=== PATIENT | female | born 1970 | race African-American/Black ===

== ENCOUNTER 2019-09-09 11:05 | Outpatient (CLI) | payer BC, SELFPAY ==
[2019-09-09 11:44] LABS: Basophils Percent Auto 0.6 % (0.2-1.2); Eosinophils Percent Auto 0.8 % (0-4.4); Hematocrit 37.2 % (37.0-47.0); Hemoglobin 13.1 g/dL (12.0-15.0); Immature Granulocyte Absolute 0.01 K/mm3 (0.00-0.031); Immature Granulocyte Percent A 0.2 % (0-0.5); Immature Platelet Fraction Pct 11.8 % (0.9-11.2); Lymphocytes Absolute Auto 1.89 K/mm3 (0.9-3.2); Lymphocytes Percent Auto 38.3 % (18.3-44.2); Mean Corpuscular HGB Conc 35.2 g/dl (32-36); Mean Corpuscular Hemoglobin 31.7 pg (26-34); Mean Corpuscular Volume 90.1 fl (80-100); Mean Platelet Volume 13.3 fl (7.4-10.4); Monocytes Absolute Auto 0.3 K/mm3 (0.1-0.6); Monocytes Percent Auto 6.9 % (2.6-8.5); Neutrophils Absolute Auto 2.6 K/mm3 (1.3-6.7); Neutrophils Percent Auto 53.2 % (45.5-73.1); Platelet Count Result 249 k/mm3 (150-375); Red Blood Count 4.13 M/mm3 (4.2-5.4); Red Cell Distribution Width 11.7 % (11.5-14.5); White Blood Count 4.9 K/mm3 (4.5-10.0)
[2019-09-09 11:48] LABS: Add Urine Microscopic? YES; Appearance Urine Cloudy (Clear); Bacteria Urine Trace /hpf; Bilirubin Urine Negative (Negative); Blood Urine Negative (Negative); Color Urine Yellow (Yellow); Glucose Urine UA 3+ mg/dL (Negative); Ketones Urine Negative (Negative); Leukocyte Esterase Ur 3+ LEU/UL (NEGATIVE); Nitrate Urine Positive (Negative); Protein Urine Negative (Negative); Squamous Epithelial Cell Urine Many /hpf (Few); Urobilinogen Urine Negative mg/dL (<2.0); WBC Clumps Urine Present /HPF; WBC Urine >75 /hpf (0-3)
[2019-09-09 11:49] LABS: Specific Grav Ur 1.032 (1.001-1.035)
[2019-09-09 11:54] LABS: Alanine Aminotransferase 14 U/L (4-35); Albumin Level 4.2 g/dL (3.5-5.1); Alkaline Phosphatase 151 U/L (38-126); Aspartate Amino Transferase 19 U/L (14-36); Bilirubin,Total 0.4 mg/dL (0.2-1.3); Blood Urea Nitrogen 16 mg/dL (7-17); Calcium 9.6 mg/dL (8.4-10.2); Carbon Dioxide 28 mmol/L (22-30); Chloride 95 mmol/L (98-107); Estimated Glomerular Filt Rate > 60; Glucose 490 mg/dL (65-105); Potassium 3.8 mmol/L (3.4-5.0); Sodium 131 mmol/L (137-145)
[2019-09-09 12:09] LABS: Hemoglobin A1C > 14.0 % (<5.7)
[2019-09-09 13:00] LABS: Thyroid Stimulating Hormone Reflex 0.655 uIU/mL (0.465-4.68)
== END 2019-09-09 11:06 | disposition home or self-care (01) ==
PROVIDERS: PCP Physician Assistant; Visit Provider Physician Assistant
DX: E11.49 Type 2 diabetes mellitus with other diabetic neurological complication (principal); R53.83 Other fatigue; Z79.4 Long term (current) use of insulin
CPT/HCPCS: 36415; 80053; 81001; 83036; 84443; 85025; 85055

== ENCOUNTER 2020-09-08 12:33 | Outpatient (CLI) | payer BC, SELFPAY ==
[2020-09-08 13:15] LABS: Basophils Percent Auto 0.5 % (0.2-1.2); Eosinophils Absolute Auto 0.1 K/mm3 (0-0.3); Eosinophils Percent Auto 1.5 % (0-4.4); Hematocrit 43.8 % (37.0-47.0); Hemoglobin 14.7 g/dL (12.0-15.0); Immature Granulocyte Absolute 0.02 K/mm3 (0.00-0.031); Immature Granulocyte Percent A 0.3 % (0-0.5); Lymphocytes Absolute Auto 2.19 K/mm3 (0.9-3.2); Lymphocytes Percent Auto 33.7 % (18.3-44.2); Mean Corpuscular HGB Conc 33.6 g/dl (32-36); Mean Corpuscular Hemoglobin 31.9 pg (26-34); Mean Platelet Volume 12.6 fl (7.4-10.4); Monocytes Absolute Auto 0.5 K/mm3 (0.1-0.6); Neutrophils Absolute Auto 3.6 K/mm3 (1.3-6.7); Platelet Count Result 239 k/mm3 (150-375); Red Blood Count 4.61 M/mm3 (4.2-5.4); Red Cell Distribution Width 12.6 % (11.5-14.5); White Blood Count 6.5 K/mm3 (4.5-10.0)
[2020-09-08 13:22] LABS: Hemoglobin A1C 13.4 % (<5.7)
[2020-09-08 13:26] LABS: Alanine Aminotransferase 12 U/L (4-35); Albumin Level 4.3 g/dL (3.5-5.1); Alkaline Phosphatase 81 U/L (38-126); Anion Gap 10 mmol/L (8-16); Aspartate Amino Transferase 17 U/L (14-36); Bilirubin,Total 0.7 mg/dL (0.2-1.3); Blood Urea Nitrogen 23 mg/dL (7-17); Calcium 9.7 mg/dL (8.4-10.2); Carbon Dioxide 26 mmol/L (22-30); Chloride 101 mmol/L (98-107); Cholesterol 209 mg/dL (0-200); Estimated Glomerular Filt Rate > 60; Glucose 297 mg/dL (65-105); HDL Direct 92 mg/dL; Potassium 4.1 mmol/L (3.4-5.0); Sodium 137 mmol/L (137-145); Triglycerides 87 mg/dL (<150)
[2020-09-08 13:37] LABS: LDL Cholesterol Direct 84 mg/dL
[2020-09-08 13:57] LABS: Thyroid Stimulating Hormone 0.592 uIU/mL (0.465-4.680)
== END 2020-09-08 12:34 | disposition home or self-care (01) ==
PROVIDERS: PCP Physician Assistant; Visit Provider Physician Assistant
DX: R53.83 Other fatigue (principal); E11.59 Type 2 diabetes mellitus with other circulatory complications; I10 Essential (primary) hypertension
CPT/HCPCS: 36415; 80053; 80061; 83036; 84443; 85025

== ENCOUNTER 2021-01-19 09:04 | Outpatient (CLI) | payer BC, SELFPAY ==
--- NOTE | ~2021-01-19 | MM_ITS ---
EXAMINATION: MM screening peter BI w jamin HISTORY: Screening mammogram TECHNIQUE: Craniocaudal and mediolateral oblique 3-D tomosynthesis images were obtained and synthetic 2-D images were generated. CAD analysis was submitted and interpreted. COMPARISON: 02/19/2019 bilateral digital screening mammogram examination BREAST PARENCHYMAL COMPOSITION: There are scattered areas of fibroglandular density. FINDINGS: There is no evidence of suspicious mass, calcification, or architectural distortion to sugg est malignancy in either breast. There has been no suspicious interval change. IMPRESSION: 1. No mammographic evidence of malignancy. 2. Recommend routine screening mammography in one year. BI-RADS Category 1: Negative Reviewed, dictated and finalized at location A.
[2021-01-19 11:00] LABS: Alanine Aminotransferase 13 U/L (4-35); Albumin Level 4.2 g/dL (3.5-5.1); Alkaline Phosphatase 81 U/L (38-126); Anion Gap 7 mmol/L (8-16); Aspartate Amino Transferase 18 U/L (14-36); Bilirubin,Total 0.5 mg/dL (0.2-1.3); Blood Urea Nitrogen 15 mg/dL (7-17); Calcium 9.4 mg/dL (8.4-10.2); Carbon Dioxide 27 mmol/L (22-30); Chloride 105 mmol/L (98-107); Cholesterol 194 mg/dL (0-200); Estimated Glomerular Filt Rate > 60; Glucose 174 mg/dL (65-110); HDL Direct 93 mg/dL; Potassium 3.9 mmol/L (3.4-5.0); Sodium 139 mmol/L (137-145); Triglycerides 77 mg/dL (<150)
[2021-01-19 11:11] LABS: LDL Cholesterol Direct 64 mg/dL
[2021-01-19 11:29] LABS: Thyroid Stimulating Hormone 0.904 uIU/mL (0.465-4.680)
[2021-01-19 12:41] LABS: Creatinine Urine 44.7 mg/dL
[2021-01-19 14:12] LABS: Microalbumin Urine Random > 1140.0 mg/L (0-16.7)
== END 2021-01-19 09:05 | disposition home or self-care (01) ==
PROVIDERS: PCP Physician Assistant; Visit Provider Physician Assistant
DX: Z12.31 Encounter for screening mammogram for malignant neoplasm of breast (principal); E11.40 Type 2 diabetes mellitus with diabetic neuropathy, unspecified; E11.65 Type 2 diabetes mellitus with hyperglycemia; E11.49 Type 2 diabetes mellitus with other diabetic neurological complication; Z79.4 Long term (current) use of insulin
CPT/HCPCS: 36415; 77063; 77067; 80053; 80061; 82043; 84443

== ENCOUNTER 2022-11-22 10:39 | Outpatient (CLI) | payer BC, SELFPAY ==
--- NOTE | ~2022-11-22 | MM_ITS ---
EXAMINATION: MM screening peter BI w jamin HISTORY: Screening mammogram TECHNIQUE: Craniocaudal and mediolateral oblique 3-D tomosynthesis images were obtained and synthetic 2-D images were generated. CAD analysis was submitted and interpreted. COMPARISON: 01/19/2021, 02/19/2019 bilateral screening mammogram examinations BREAST PARENCHYMAL COMPOSITION: There are scattered areas of fibroglandular density. FINDINGS: There is an irregular approximately 2.5 mm hypodensity in the upper mid right breast at mid depth. Diagnostic right mammogram is recommended, with ultrasound if required. Otherwise there is no evidence of suspicious mass, calcification, or architectural distortion to sugg est malignancy in either breast. There has been no other suspicious interval change. IMPRESSION: 1. 2.5 mm irregular high density in the upper mid right breast at mid depth 2. Diagnostic right mammogram is recommended, with ultrasound if required BI-RADS Category 0: Incomplete: Needs additional imaging evaluation. Reviewed, dictated and finalized at location A.
[2022-11-22 14:21] LABS: Alanine Aminotransferase 16 U/L (6-35); Albumin Level 4.3 g/dL (3.5-5.1); Alkaline Phosphatase 95 U/L (38-126); Anion Gap 4 mmol/L (8-16); Aspartate Amino Transferase 19 U/L (14-36); Bilirubin,Total 0.3 mg/dL (0.2-1.3); Blood Urea Nitrogen 17 mg/dL (7-17); Calcium 9.2 mg/dL (8.4-10.2); Carbon Dioxide 30 mmol/L (22-30); Chloride 104 mmol/L (98-107); Cholesterol 212 mg/dL (0-200); Estimated Glomerular Filt Rate > 60; Glucose 190 mg/dL (65-110); HDL Direct 69 mg/dL; Potassium 3.6 mmol/L (3.4-5.0); Sodium 138 mmol/L (137-145); Triglycerides 130 mg/dL (<150)
[2022-11-22 14:27] LABS: Hemoglobin A1C 11.2 % (<5.7)
[2022-11-22 14:32] LABS: LDL Cholesterol Direct 97 mg/dL
== END 2022-11-22 10:40 | disposition home or self-care (01) ==
PROVIDERS: PCP Physician Assistant; Visit Provider Physician Assistant
DX: Z12.31 Encounter for screening mammogram for malignant neoplasm of breast (principal); E11.49 Type 2 diabetes mellitus with other diabetic neurological complication; Z79.4 Long term (current) use of insulin; R92.8 Other abnormal and inconclusive findings on diagnostic imaging of breast
CPT/HCPCS: 36415; 77063; 77067; 80053; 80061; 83036

== ENCOUNTER 2022-12-24 08:52 | Outpatient (CLI) | payer BC, SELFPAY ==
--- NOTE | ~2022-12-24 | MM_ITS ---
EXAMINATION: MM diagnostic peter RT w jamin HISTORY: Right breast asymmetry on screening mammogram TECHNIQUE: Additional 3-D tomosynthesis images of the right breast were performed and synthetic 2-D i mages were generated. CAD analysis was submitted and interpreted. COMPARISON: 11/22/2022,01/19/2021, 02/19/2019 BREAST PARENCHYMAL COMPOSITION: There are scattered areas of fibroglandular density. FINDINGS: There is a return to baseline fibroglandular appearance with spot compression of the right breast in the area questioned on screening mammogram. IMPRESSION: 1. No mammographic evidence of malignancy. 2. Recommend routine screening mammography in one year. BI-RADS Category 1: Negative Reviewed, dictated and finalized at location A.
== END 2022-12-24 08:53 ==
LOC: MICIMG 08:53
PROVIDERS: PCP Physician Assistant; Visit Provider Physician Assistant
DX: R92.8 Other abnormal and inconclusive findings on diagnostic imaging of breast (principal)
CPT/HCPCS: 77061; 77065; G0279

== ENCOUNTER 2023-06-19 11:19 | Outpatient (CLI) | payer BC, SELFPAY ==
[2023-06-19 12:10] LABS: Creatinine Urine 76.4 mg/dL
[2023-06-19 12:15] LABS: MALB Creatinine Ratio 49.2 mg/g (0-30); Microalbumin Urine Random 37.6 mg/L (0-16.7)
[2023-06-19 12:53] LABS: Thyroid Stimulating Hormone Reflex 0.294 uIU/mL (0.465-4.68)
[2023-06-19 12:59] LABS: Alanine Aminotransferase 16 U/L (6-35); Albumin Level 4.4 g/dL (3.5-5.1); Alkaline Phosphatase 102 U/L (38-126); Anion Gap 9 mmol/L (8-16); Aspartate Amino Transferase 20 U/L (14-36); Bilirubin,Total 0.5 mg/dL (0.2-1.3); Blood Urea Nitrogen 22 mg/dL (7-17); Carbon Dioxide 28 mmol/L (22-30); Chloride 102 mmol/L (98-107); Cholesterol 238 mg/dL (0-200); Estimated Glomerular Filt Rate > 60; Glucose 288 mg/dL (65-110); HDL Direct 74 mg/dL; Sodium 139 mmol/L (137-145); Triglycerides 130 mg/dL (<150)
[2023-06-19 13:10] LABS: LDL Cholesterol Direct 110 mg/dL
[2023-06-19 13:42] LABS: Free T4 Free Thyroxine Reflex 1.45 ng/dL (0.78-2.19)
[2023-06-19 14:50] LABS: Total Triiodothyronine (T3) 1.43 NG/ML (0.97-1.69)
[2023-06-22 19:21] LABS: Glutamic acid decarboxylase AA <5 IU/mL (<5)
[2023-06-22 21:45] LABS: C-Peptide 2.79 ng/mL (0.80-3.85)
== END 2023-06-19 11:20 | disposition home or self-care (01) ==
LOC: ANHLAB 11:21
PROVIDERS: PCP Physician Assistant; Visit Provider Nurse Practitioner
DX: E11.65 Type 2 diabetes mellitus with hyperglycemia (principal)
CPT/HCPCS: 36415; 80053; 80061; 82043; 84439; 84443; 84480; 84681; 86341

== ENCOUNTER 2023-07-08 11:56 | Emergency (ER) | payer BC, SELFPAY ==
--- NOTE | ~2023-07-08 | XR_ITS ---
EXAMINATION: XR chest 2V DATE: 07/08/2023 12:48 INDICATION: Chest pain TECHNIQUE: PA and lateral views of the chest are obtained. COMPARISON: 05/27/2018 FINDINGS: There are minimal airspace opacities of the lingula. No pleural effusion or pneumothorax. T he cardiomediastinal silhouette is normal. There is mild thoracic spondylosis. Surgical clips in the right upper quadrant are likely from prior cholecystectomy. IMPRESSION: 1. Minimal airspace opacities of the lingula, consistent with atelectasis versus pneumonia. Reviewed, dictated and finalized at location B. [employer] IMPRESSION: 1. Minimal airspace opacities of the lingula, consistent with atelectasis versu s pneumonia.
--- NOTE | 2023-07-08 11:58 | ECG_ITS ---
Measurements Intervals Alvin Rate: 92 P: 20 KS: 185 QRS: -29 QRSD: 86 T: -4 QT: 353 QTc: 437 Interpretive Statements SINUS RHYTHM MODERATE VOLTAGE CRITERIA FOR LVH, CONSIDER NORMAL VARIANT [MEETS CRITERIA IN ONE OF: R(aVL), S(V1), R(V5), R(V5/V6)+S(V1)] POSSIBLE ANTERIOR MYOCARDIAL INFARCTION , OF INDETERMINATE AGE [30 ms Q WAVE IN V3/V4, OR R < 0.2 mV IN V4] NO PREVIOUS ECG AVAILABLE FOR COMPARISON Electronically Signed On 07-08-2023 15:37:09 [employer] by Bhargav Guerrero M.D.
[2023-07-08 12:05] VITALS: BP 141/98; PULSE 95; RESP 23; O2SAT 100
[2023-07-08 12:08] VITALS: PULSE 93; PULSE 94; RESP 15; O2SAT 100
[2023-07-08] MEDS: ASPIRIN 81 MG CHEWABLE TABLET 324 MG PO (12:14)
[2023-07-08 12:16] VITALS: BP 133/92; PULSE 94; RESP 20; O2SAT 92
[2023-07-08 12:26] LABS: Basophils Percent Auto 0.7 % (0.2-1.2); Eosinophils Absolute Auto 0.1 K/mm3 (0-0.3); Eosinophils Percent Auto 1.8 % (0-4.4); Hematocrit 38.1 % (37.0-47.0); Hemoglobin 12.7 g/dL (12.0-15.0); Immature Granulocyte Absolute 0.01 K/mm3 (0.00-0.031); Immature Granulocyte Percent A 0.2 % (0-0.5); Lymphocytes Absolute Auto 2.02 K/mm3 (0.9-3.2); Lymphocytes Percent Auto 37.1 % (18.3-44.2); Mean Corpuscular HGB Conc 33.3 g/dl (32-36); Mean Corpuscular Hemoglobin 31.1 pg (26-34); Mean Corpuscular Volume 93.2 fl (80-100); Mean Platelet Volume 11.9 fl (7.4-10.4); Monocytes Absolute Auto 0.4 K/mm3 (0.1-0.6); Monocytes Percent Auto 6.4 % (2.6-8.5); Neutrophils Absolute Auto 2.9 K/mm3 (1.3-6.7); Neutrophils Percent Auto 53.8 % (45.5-73.1); Platelet Count Result 259 k/mm3 (150-375); Red Blood Count 4.09 M/mm3 (4.2-5.4); Red Cell Distribution Width 11.9 % (11.5-14.5); White Blood Count 5.4 K/mm3 (4.5-10.0)
[2023-07-08 12:30] VITALS: BP 134/97; PULSE 97; RESP 28
[2023-07-08 12:38] LABS: Alanine Aminotransferase 15 U/L (6-35); Albumin Level 3.9 g/dL (3.5-5.1); Alkaline Phosphatase 115 U/L (38-126); Anion Gap 5 mmol/L (8-16); Aspartate Amino Transferase 18 U/L (14-36); Bilirubin,Total 0.4 mg/dL (0.2-1.3); Blood Urea Nitrogen 19 mg/dL (7-17); Calcium 9.4 mg/dL (8.4-10.2); Carbon Dioxide 27 mmol/L (22-30); Chloride 102 mmol/L (98-107); Estimated CRCL calculation 68 ml/min; Estimated Glomerular Filt Rate > 60; Glucose 299 mg/dL (65-110); Lipase 259 U/L (23-300); Sodium 134 mmol/L (137-145)
[2023-07-08 12:42] LABS: INR 0.9; Prothrombin Time 11.9 Seconds (11.1-14.7)
[2023-07-08 12:43] LABS: Partial Thromboplastin Time 26.4 SECONDS (22.3-36.8)
[2023-07-08 12:49] LABS: Troponin I < 0.012 ng/mL (0.000-0.034)
[2023-07-08 13:15] VITALS: BP 133/93; PULSE 91; RESP 18; O2SAT 100
[2023-07-08 13:37] LABS: D Dimer < 0.27 ug/mL (<0.48)
--- NOTE | 2023-07-08 14:02 | ED.CHESTPAIN ---
HPI - Chest Pain General Chief Complaint: Chest Pain Stated Complaint: chest pain Time Seen by Provider: 07/08/23 13:02 Source: patient Limitations: no limitations History of Present Illness HPI narrative: Patient is a 53-year-old female presents to the emergency department complaining of chest pain. Patient states for the past 1 week she has been experiencing pain in the middle to mid left side of her chest is described as sharp, worse when taking a deep breath and, overall comes and goes, no significant radiation, denies any chest pain in the past, tried ibuprofen and aspirin for the discomfort, has not noticed anything making the pain better. patient denies difficulty breathing, fever, cough, recent injuries recent illness, bloody bowel movements, urinary discomfort, nausea, vomiting, numbness, weakness. Related Data Home Medications Medication Instructions Recorded Confirmed dulaglutide 1.5 mg/0.5 mL mg subcut 07/08/23 subcutaneous pen injector (Trulicity) empagliflozin 25 mg tablet mg 07/08/23 (Jardiance) famotidine 20 mg tablet (Pepcid) mg 07/08/23 insulin degludec 100 unit/mL (3 unit subcut 07/08/23 mL) subcutaneous pen olmesartan 40 mg-amlodipine 5 tablet PO 07/08/23 mg-hydrochlorothiazide 12.5 mg tablet pen needle, diabetic 31 gauge x 07/08/23 07/08/2308/14 (TRUEplus Pen Needle) Allergies Allergy/AdvReac Type Severity Reaction Status Date / Time lisinopril Allergy Cough Verified 07/08/23 12:11 Review of Systems Review of Systems: A 10 system review of systems was completed on the patient and is negative except for what is stated in the HPI. Nursing and ancillary documentation was reviewed. [facility] Family History Family History (Updated 01/26/14 @ 07:13 by DOCTOR UNKNOWN) Sibling Family history of congestive heart failure Other Cerebrovascular accident Family history of heart disease in male family member before age 55 Social History Social History Smoking status: Never smoker Alcohol intake: current Comments At time of signature, I have reviewed and agree with nursing past medical, surgical, social and family history unless otherwise noted. Please see the nursing chart for further information. There is no relevant family history pertinent to the presenting complaint. Exam Narrative: CONST: No acute distress. Well nourished. HENMT: Head is normocephalic and atraumatic. Moist mucous membranes. No posterior oropharynx erythema. EYES: No conjunctival icterus, injection, or pallor. PERRL. NECK: No meningeal signs. RESP: Able to speak in full sentences. Normal respiratory effort. CTAB. CARDIO: Regular rate. Regular rhythm. 2+ DP and radial pulses bilaterally. GI: Nondistended. No tenderness to palpation. Soft. : No CVA tenderness to palpation. SKIN: No rashes or lesions noted on exposed skin. NEURO: Oriented x3. Moves all extremities. EXTREM/MSK/BACK: No pedal edema. PSYCH: Normal affect. Course Vital Signs Vital signs: Vital Signs Pulse Rate 95 07/08/23 12:05 Respiratory Rate 23 H 07/08/23 12:05 Blood Pressure 141/98 H 07/08/23 12:05 Pulse Oximetry 100 07/08/23 12:05 Pulse Rate 91 07/08/23 13:15 Respiratory Rate 18 07/08/23 13:15 Blood Pressure 133/93 H 07/08/23 13:15 Pulse Oximetry 100 07/08/23 13:15 Oxygen Delivery Room Air 07/08/23 12:08 MDM - Chest Pain MDM Narrative Medical decision making narrative: Patient presents with the above complaint. Initial vitals are remarkable for no significant abnormalities. Physical examination as noted above. Plan discussed: Laboratory analysis, EKG, chest x-ray, continues cardiac monitoring, continuous pulse oximetry, aspirin. Patient was reassessed at the bedside. No changes in physical exam. Patient is in no acute distress. The patient has remained stable throughout the entire ED visit. Counseled patient regarding diagnostic results and po
[2023-07-08] MEDS: AMOXICILLIN 500 MG CAPSULE 1000 MG PO (14:40)
[2023-07-08 15:46] LABS: Influenza A QL RT-PCR Negative (Negative); Influenza B QL RT-PCR Negative (Negative); RSV RNA, RT-PCR Negative (Negative); SARS-CoV-2 RNA PCR Negative (Negative)
== END 2023-07-08 14:43 | disposition home or self-care (01) ==
PROVIDERS: Emergency Provider Student in an Organized Health Care Education/Training Program; PCP Physician Assistant
DX: J18.9 Pneumonia, unspecified organism (principal); R07.81 Pleurodynia; Z20.822 Contact with and (suspected) exposure to COVID-19
CPT/HCPCS: 36415; 71046; 80053; 83690; 84484; 85025; 85380; 85610; 85730; 87637; 93005; 99284; A9270

== ENCOUNTER 2024-07-29 15:17 | Outpatient (CLI) | payer BC, SELFPAY | END 2024-07-29 15:18 | disposition home or self-care (01) | LOC: ANHIMG 15:19 | PROVIDERS: PCP Physician Assistant; Visit Provider Physician Assistant | DX: Z12.31 Encounter for screening mammogram for malignant neoplasm of breast (principal) | CPT/HCPCS: 77063; 77067 ==

== ENCOUNTER 2024-11-05 09:56 | Outpatient (CLI) | payer BC, SELFPAY ==
--- OUTSIDE RECORDS SUMMARY | 2024-11-05 10:04 | XMS_ITS | Clinical Summary ---
Author Organization [facility] [address] [facility] Address [address] [place] [address] Care Team Providers Care Industrial Analyst Name Role Phone Cathie Bolanos Primary Care Provider [phone] Cathie Bolanos Unavailable [phone] Allergies Active Allergy Reactions Criticality Noted Date Comments Lisinopril Cough Low 01/19/2019 Medications blood-glucose meter miscIndications:U ncontrolled type 2 diabetes mellitus with hyperglycemia (HCC),Type 2 diabetes mellitus without complication, with long-term current use of insulin (HCC) Use daily for monitoring of diabetes. 1 each 3 Active gabapentin (NEURONTIN) 300 mg capsuleIndication s:Uncontrolled type 2 diabetes mellitus with hyperglycemia (HCC) Take 1 capsule (300 mg total) by mouth 2 (two) times a day E11.65 180 capsule 3 3 Active blood glucose diagnostic (glucose blood) strip Check blood sugar daily in am e11.65 100 each 5 3 Active lancets misc 1 each by other route daily E11.65 100 each 3 3 Active olmesartan-amLODI Pin-hcthiazid 40-5-12.5 mg tabletIndications :Hypertension associated with diabetes (HCC) TAKE 1 TABLET BY MOUTH DAILY 90 tablet 1 4 Active empagliflozin (Jardiance) 25 mg tabletIndications :type 2 diabetes mellitus Take 1 tablet (25 mg total) by mouth daily E11.65 90 tablet 3 5 Active dulaglutide (Trulicity) 1.5 mg/0.5 mL pen injectorIndicatio ns:Uncontrolled type 2 diabetes mellitus with hyperglycemia (HCC) Inject 0.5 mL (1.5 mg total) under the skin once a week 6 mL 2 5 Active pen needle, diabetic 31 gauge x 08/14 needleIndications :Uncontrolled type 2 diabetes mellitus with hyperglycemia (HCC) Use needle nightly to administer insulin. MAY SUBSTITUTE FOR INSURANCE PREFERRED AND MOST COST EFFECTIVE BRAND. E11.65 100 each 3 5 Active BASAGLAR 100 unit/mL (3 mL) pen for injection Inject 14 Units under the skin daily E11.65 15 mL 1 5 Active ofloxacin (FLOXIN) 0.3 % otic solution Administer 5 drops into the right ear daily 5 mL 5 Active escitalopram (LEXAPRO) 10 mg tabletIndications :Recurrent major depressive disorder, in partial remission Take 1 tablet (10 mg total) by mouth daily 5 Active Active Problems Problem Noted Date Diagnosed Date Otitis of left ear 09/24/2024 Assessment & Plan (09/24/2024 9:55 PM CDT): Left ear looks like maybe starting tightness media and the canal is also irritated. Will send out antibiotics as well as drops. Avoid Q-tip use. Will monitor closely and if symptoms do not resolve will need to re-examine the ear. Reviewed with patient that Reviewed with patient that infection can sometimes contribute to sugar elevations. Continue to work hard I am good control Recurrent major depressive disorder, in partial remission 09/24/2024 Obesity (BMI 30.0-34.9) 08/12/2024 Assessment & Plan (09/14/2024 3:47 PM CDT): Discussed the patient's BMI. The BMI is above average. BMI management plan is completed. BMI Follow-up includes: nutrition counseling, exercise counseling and education provided. Assessment & Plan (08/12/2024 8:24 PM CDT): Discussed the patient's BMI. The BMI is above average. BMI management plan is completed. BMI Follow-up includes: nutrition counseling, exercise counseling and education provided. Current moderate episode of major depressive dis order 08/12/2024 Assessment & Plan (09/24/2024 9:55 PM CDT): Stable with Lexapro 10 Assessment & Plan (08/12/2024 8:25 PM CDT): Depression symptoms have stabilized with the Lexapro and better control of her sugars. BMI 31.0-31.9,adult 07/01/2024 Assessment & Plan (09/14/2024 3:47 PM CDT): Discussed the patient's BMI. The BMI is above average. BMI management plan is completed. BMI Follow-up includes: nutrition counseling, exercise counseling and education provided. Assessment & Plan (08/12/2024 10:08 AM CDT): Discussed the patient's BMI. The BMI is above average. BMI management plan is completed. BMI Follow-up includes: nutrition counseling, exercise counseling and education provided. Assessment & Plan (07/15/2024 11:17 AM ASSISTANT ACCOUNT MANAGER): Discussed the patient's BMI. The BMI is above average. BMI management plan is completed. BMI Follow-up includes: nutrition counseling, exercise counseling and education provided. Assessment & Plan (07/01/2024 11:19 AM ASSISTANT ACCOUNT MANAGER): Weight/BMI is in healthy range. Continue healthy lifestyle to maintain. Annual physical exam 12/17/2022 Assessment & Plan (06/26/2024 8:40 PM ASSISTANT ACCOUNT MANAGER): Encouraged healthy lifestyle, good nutrition and exercise. Encouraged Calcium and Vitamin D and weight bearing exercise for bone health. Reviewed immunizations Reviewed age appropirate screenings. Assessment & Plan (12/17/2022 11:14 PM CDT): Encouraged healthy lifestyle, good nutrition and exercise. Encouraged Calcium and Vitamin D and weight bearing exercise for bone health. Reviewed immunizations Reviewed age appropirate screenings. Abnormal mammogram 12/17/2022 Assessment & Plan (12/17/2022 11:23 PM CDT): Awaiting diagnostic mamm/US scheduled in the next few weeks. Type 2 diabetes mellitus wit hout complication, with long-term current use of insulin 12/17/2022 Assessment & Plan (09/24/2024 9:55 PM CDT): Stressed importance of continued A1c control to minimize the ferry terminal supervisor effects of diabetes. Bring accuchecks to office when instructed to do so. Check A1c about every 3-6 months. Take medication as prescribed. Get annual eye exam. Encouraged ELINA/Statin if able to tolerate. Encouraged weight control and encouraged diabetic diet and exercise. Continue with current regimen. Reviewed with patient that infection can contribute to elevations in glucose. Continue monitor closely and if symptoms increase or sugars continue to elevate she needs to call immediately Assessment & Plan (06/26/2024 8:41 PM ASSISTANT ACCOUNT MANAGER): This is a significant, separately identifiable problem that was evaluated and managed on the same day as the wellness exam Patient's diabetes completely uncontrolled. Last A1c within the last few weeks was greater than 14. She has been out of her Jardiance for a week Trulicity 1.5 on which she has been taking. She is supposed to take Basaglar 15 units but has been taking every 3rd day because she isn't sure she needs that much. Stressed to her the goal is to have her A1c at 7. She is at a very high-risk for long-term sequela due to uncontrolled diabetes not limited to stroke heart attack kidney failure blindness problems with her feet and problems with the entire vascular system. Stressed the importance of getting her diabetes controlled. She will start the Jardiance she will start taking the Basaglar 15 units HS. Take her fasting blood sugar readings 1st thing in the morning. Discussed the continuous glucose monitor set up for her and she declined stating she wants to do this on her own she thinks she can. She will follow up in 2 weeks with her fasting blood sugar readings and we will reassess adjustment at that time. Offered referral to dietitian as well as shop director and she declines these also. Assessment & Plan (03/27/2023 1:02 PM CDT): Stressed importance of continued A1c control to minimize the skilled nursing effects of diabetes. Bring accuchecks to office when instructed to do so. Check A1c about every 3-6 months. Take medication as prescribed. Get annual eye exam. Encouraged ELINA/Statin if able to tolerate. Encouraged weight control and encouraged diabetic diet and exercise. Not at goal. Will refer to Endocrine. Continue Trulicity 1.5 weekly, Jardiance 25, Tresiba 10 units. Instructed to do fasting blood sugars to begin to get trends and make sure she brings them with her to see Gabrielle Palacios. Will await her recommendations Assessment & Plan (12/17/2022 11:26 PM CDT): Started Insulin today. Fatigue 11/11/2020 Assessment & Plan (08/12/2024 8:22 PM CDT): Probably multifactorial. Check labs and followup to re-evaluate Assessment & Plan (11/17/2021 10:52 PM CDT): Probably multifactorial. Check labs and followup to re-evaluate Assessment & Plan (07/05/2021 11:20 AM ASSISTANT ACCOUNT MANAGER): Probably multifactorial. Check labs and followup to re-evaluate Assessment & Plan (01/13/2021 10:14 PM CDT): Probably multifactorial. Check labs and followup to re-evaluate Assessment & Plan (11/11/2020 9:37 PM CDT): Probably multifactorial. Check labs and followup to re-evaluate Uncontrolled type 2 diabetes mellitus with hyperglycemia ([facility]) 10/21/2020 Assessment & Plan (08/12/2024 8:22 PM CDT): Stressed importance of continued A1c control to minimize the ferry terminal supervisor effects of diabetes. Bring accuchecks to office when instructed to do so. Check A1c about every 3-6 months. Take medication as prescribed. Get annual eye exam. Encouraged ELINA/Statin if able to tolerate. Encouraged weight control and encouraged diabetic diet and exercise. A1c was uncontrolled at over 14. Currently on Trulicity 1.5 weekly, Jardiance 25, Basaglar 14 units HS. Tolerating well. Taking as instructed every night. Feeling much better. Will be due for an A1c in a few months. Will see her back in September with labs done week prior. Assessment & Plan (07/23/2024 8:02 PM ASSISTANT ACCOUNT MANAGER): Stressed importance of continued A1c control to minimize the skilled nursing effects of diabetes. Bring accuchecks to office when instructed to do so. Check A1c about every 3-6 months. Take medication as prescribed. Get annual eye exam. Encouraged ELINA/Statin if able to tolerate. Encouraged weight control and encouraged diabetic diet and exercise. Continue to work on tight control which will be accomplished by consistent compliance with medications. Continue Jardiance 25, Trulicity 1.5 per week and Basaglar 15 units HS. Assessment & Plan (07/10/2024 7:17 PM ASSISTANT ACCOUNT MANAGER): Stressed importance of continued A1c control to minimize the ferry terminal supervisor effects of diabetes. Bring accuchecks to office when instructed to do so. Check A1c about every 3-6 months. Take medication as prescribed. Get annual eye exam. Encouraged ELINA/Statin if able to tolerate. Encouraged weight control and encouraged diabetic diet and exercise. A1c has been completely uncontrolled. She has been taking her medication as instructed for the last 2 weeks and beginning to see her FBS come down between 120 and 200. Continue to take medications as instructed continue to monitor her readings. Discussed the continuous glucose monitor as well as evs manager and Endocrinology referral and she has declined all of those. She wants to work hard on doing medications as instructed to see where she ends up. Follow-up in 2 more weeks to continue to reinforce compliance. She is in agreement with the plan Assessment & Plan (06/26/2024 8:41 PM ASSISTANT ACCOUNT MANAGER): This is a significant, separately identifiable problem that was evaluated and managed on the same day as the wellness exam Patient's diabetes completely uncontrolled. Last A1c within the last few weeks was greater than 14. She has been out of her Jardiance for a week Trulicity 1.5 on which she has been taking. She is supposed to take Basaglar 15 units but has been taking every 3rd day because she isn't sure she needs that much. Stressed to her the goal is to have her A1c at 7. She is at a very high-risk for long-term sequela due to uncontrolled diabetes not limited to stroke heart attack kidney failure blindness problems with her feet and problems with the entire vascular system. Stressed the importance of getting her diabetes controlled. She will start the Jardiance she will start taking the Basaglar 15 units HS. Take her fasting blood sugar readings 1st thing in the morning. Discussed the continuous glucose monitor set up for her and she declined stating she wants to do this on her own she thinks she can. She will follow up in 2 weeks with her fasting blood sugar readings and we will reassess adjustment at that time. Offered referral to dietitian as well as shop director and she declines these also. Assessment & Plan (05/14/2023 3:41 PM ASSISTANT ACCOUNT MANAGER): This is a chronic condition which is out of control, not at goal of less than 7%. Personally reviewed most recent A1c - Lab Results Component Value Date HGBA1C 13.3 (A) 03/27/2023 Personally reviewed POC blood sugar- not at goal 80-180 Lab Results Component Value Date POCGLU 600 05/14/2023 Medication- increase Tresiba 14 units daily in am, continue jardiance 25mg daily and trulicity 1.5mg weekly. Call blood sugars on Thursday. We will adjust insulin. Discussed at length that I feel that her constipation may be related to her dehydration related to her high blood sugars. We discussed a ball plan of taking milk of magnesia if she has not had a bowel movement every 3 days. She agreed to this red Monitor blood sugar daily. Encouraged annual eye exam. Monofilament foot exam completed. protective senses intact Treated with Gabapentin. States neuropathy is well controlled with her current dose of gabapentin Personally reviewed CMP eGFR- 89 Kidney function- normal Urine microalbumin/creatinine ratio - at goal <30 treated with olmesartan/amlodipine/hydrochlorothiazide B/P today- at goal of <140/90. continue olmesartan/amlodipine/hydrochlorothiazide Personally reviewed lipid panel. Not at Goal of less than 70. Assessment & Plan (03/27/2023 1:01 PM CDT): Patient's diabetes is uncontrolled. She is struggling with an insulin that she can tolerate as she is having increased bloating and constipation. She is not taking her medications regular. Will refer to Gabrielle Palacios nurse practitioner for further evaluation. She would be interested in a pump if this is appropriate option but stressed the importance of getting her A1c control to avoid long-term sequela not limited to I damage heart attack stroke kidney damage and or issues with her feet. She verbalizes understanding in his ready to make a change willing to see the middle school art teacher Assessment & Plan (12/17/2022 11:21 PM CDT): This is a significant, separately identifiable problem that was evaluated and managed on the same day as the wellness exam Stressed importance of continued A1c control to minimize the skilled nursing effects of diabetes. This includes but is not limited to diabetic diet, exercise, and continuation of medication as prescribed. Encouraged ELINA/Statin if able to tolerate. Discussed the importance of annual diabetic eye exam and foot exams. We will continue to check A1C approximately every 3-6 months. Bring accuchecks to the office when asked to do so. Continue Trulicity and Jardiance at their current doses. We will begin Tresiba 10 units every morning. Patient has previously taken Tresiba and reports being comfortable with taking this medication again. Encouraged patient to get in with eye doctor WILBERTO to evaluate for diabetic eye exam with her recent visual changes. Reminded patient of s/s hypoglycemia. She is to record FBS each morning. Will slowly titrate up until controlled. Plan to have her return to the office in 4-6 weeks to reassess but stressed most important step is to take insulin daily as well as her other meds. Call if she has increased sxs. Needs new Glucometer and supplies Assessment & Plan (01/13/2021 10:13 PM CDT): Stressed importance of continued A1c control to minimize the skilled nursing effects of diabetes. Bring accuchecks to office when instructed to do so. Check A1c about every 3-6 months. Take medication as prescribed. Get annual eye exam. Encouraged ELINA/Statin if able to tolerate. Encouraged weight control and encouraged diabetic diet and exercise. Assessment & Plan (11/11/2020 9:35 PM CDT): Stressed importance of continued A1c control to minimize the skilled nursing effects of diabetes. Bring accuchecks to office when instructed to do so. Check A1c about every 3-6 months. Take medication as prescribed. Get annual eye exam. Encouraged ELINA/Statin if able to tolerate. Encouraged weight control and encouraged diabetic diet and exercise. Improving control based on the FBS. Continue current regimen and f.u in a few months to recheck A1c/control Call with new concerns. Assessment & Plan (10/21/2020 8:44 PM CDT): Stressed importance of continued A1c control to minimize the skilled nursing effects of diabetes. Bring accuchecks to office when instructed to do so. Check A1c about every 3-6 months. Take medication as prescribed. Get annual eye exam. Encouraged ELINA/Statin if able to tolerate. Encouraged weight control and encouraged diabetic diet and exercise. See neuropathy. Acute cystitis without hematuria 09/19/2019 Assessment & Plan (09/19/2019 9:59 AM CDT): Resolved. Continue to monitor as frequency is probably secondary to poor DM control. Other fatigue 02/07/2019 Assessment & Plan (12/17/2022 5:26 PM CDT): Fatigue is likely multifactorial. We will evaluate labs for any underlying abnormalities that the fatigue may be attributed to. Assessment & Plan (05/20/2020 8:50 PM ASSISTANT ACCOUNT MANAGER): Probably multifactorial. Check labs and followup to re-evaluate Assessment & Plan (05/16/2019 3:54 PM ASSISTANT ACCOUNT MANAGER): Probably multifactorial. Check labs and followup to re-evaluate Assessment & Plan (02/13/2019 4:06 PM CDT): Probably multifactorial. Check labs and followup to re-evaluate Vitamin D deficiency 01/16/2019 Assessment & Plan (12/17/2022 5:29 PM CDT): Patient not currently supplementing vitamin D but was encouraged to do so. Assessment & Plan (10/21/2020 8:39 PM CDT): supplement Assessment & Plan (05/16/2019 3:54 PM ASSISTANT ACCOUNT MANAGER): supplement Assessment & Plan (02/13/2019 4:05 PM CDT): Supplement. Hypertension associated with diabetes 12/31/2018 Assessment & Plan (08/12/2024 8:21 PM CDT): Bp is stable/in acceptable range for any co-morbidities. Encouraged to limit sodium intake and exercise for weight control. Continue Tribenzor ,5 Assessment & Plan (06/26/2024 8:38 PM ASSISTANT ACCOUNT MANAGER): Bp is stable/in acceptable range for any co-morbidities. Encouraged to limit sodium intake and exercise for weight control. Continue Tribenzor .5 Assessment & Plan (05/14/2023 3:41 PM ASSISTANT ACCOUNT MANAGER): This is a chronic condition which is at goal of less than 140/90 Personally reviewed labs. Continue olmesartan, amlodipine, hydrochlorothiazide Encouraged to monitor weight and B/P at home Encouraged to take medications as prescribed. Assessment & Plan (03/27/2023 12:57 PM CDT): Bp is stable/in acceptable range for any co-morbidities. Encouraged to limit sodium intake and exercise for weight control. Continue Tribenzor .5 Assessment & Plan (12/17/2022 11:16 PM CDT): Blood pressure appears elevated with readings in office today on current medication regime. Advised to decrease salt intake. Educated patient on the importance of a healthy lifestyle with diet and exercise on the management of hypertension. Continue medications as prescribed and monitor blood pressure at home as needed. If unable to do home readings, will have her come in to see the nurse in 1 week. Assessment & Plan (07/17/2022 4:47 PM ASSISTANT ACCOUNT MANAGER): Bp is stable/in acceptable range for any co-morbidities. Encouraged to limit sodium intake and exercise for weight control. Continue [facility] Assessment & Plan (06/28/2022 7:47 PM ASSISTANT ACCOUNT MANAGER): Bp is stable/in acceptable range for any co-morbidities. Encouraged to limit sodium intake and exercise for weight control. Continue [facility] .5 Assessment & Plan (11/17/2021 10:51 PM CDT): Bp is stable/in acceptable range for any co-morbidities. Encouraged to limit sodium intake and exercise for weight control. Continue [facility] .5 Assessment & Plan (07/05/2021 11:19 AM ASSISTANT ACCOUNT MANAGER): Bp is stable/in acceptable range for any co-morbidities. Encouraged to limit sodium intake and exercise for weight control. Continue [facility] Assessment & Plan (01/13/2021 10:12 PM CDT): Bp is stable/in acceptable range for any co-morbidities. Encouraged to limit sodium intake and exercise for weight control. Continue [facility] Assessment & Plan (11/11/2020 9:36 PM CDT): Bp is stable/in acceptable range for any co-morbidities. Encouraged to limit sodium intake and exercise for weight control. Continue [facility] Assessment & Plan (10/21/2020 8:39 PM CDT): Bp is stable/in acceptable range for any co-morbidities. Encouraged to limit sodium intake and exercise for weight control. Continue [facility]. bp well controlled Assessment & Plan (05/20/2020 8:50 PM ASSISTANT ACCOUNT MANAGER): Bp is stable/in acceptable range for any co-morbidities. Encouraged to limit sodium intake and exercise for weight control. Assessment & Plan (09/19/2019 9:58 AM CDT): Bp is stable/in acceptable range for any co-morbidities. Encouraged to limit sodium intake and exercise for weight control. stable Assessment & Plan (05/16/2019 3:53 PM ASSISTANT ACCOUNT MANAGER): Bp is stable/in acceptable range for any co-morbidities. Encouraged to limit sodium intake and exercise for weight control. Stable with Tribenzor Assessment & Plan (02/13/2019 4:04 PM CDT): Bp is stable/in acceptable range for any co-morbidities. Encouraged to limit sodium intake and exercise for weight control. Control DM Happy with Tribenzor .5 Moderate episode of recurrent major depressive d isorder 12/31/2018 Assessment & Plan (06/26/2024 8:40 PM ASSISTANT ACCOUNT MANAGER): Continue Lexapro 10 as her depression symptoms are fairly stable. Her brothers are causing a lot of stress as they have many issues and trying to seek help without making true change. She understands that sometimes tough love may need to happen. Strongly encouraged counseling Assessment & Plan (03/27/2023 12:59 PM CDT): Stable with Lexapro 5 Assessment & Plan (12/17/2022 11:13 PM CDT): This is a significant, separately identifiable problem that was evaluated and managed on the same day as the wellness exam Patient is experiencing mood instability associated with multiple life stressors. Plan is to increase lexapro to 10 mg daily. Assessment & Plan (07/17/2022 4:47 PM ASSISTANT ACCOUNT MANAGER): Stable with Lexapro 5 mg. Assessment & Plan (06/28/2022 7:48 PM ASSISTANT ACCOUNT MANAGER): Increased stressors at home. Restart Lexapro 10 mg. Assessment & Plan (11/17/2021 10:51 PM CDT): Patient still feels like her symptoms are controlled without medication. Will continue to monitor. Assessment & Plan (10/21/2020 8:40 PM CDT): Currently stable without medication. Continue to monitor closely Assessment & Plan (05/16/2019 3:54 PM ASSISTANT ACCOUNT MANAGER): Stable with lexapro Assessment & Plan (02/13/2019 4:06 PM CDT): Stable with the Lexapro 20 mg Diabetic neuropathy associat ed with type 2 diabetes mellitus 12/31/2018 Assessment & Plan (05/14/2023 3:42 PM ASSISTANT ACCOUNT MANAGER): States neuropathy well controlled with current dose of gabapentin Assessment & Plan (03/27/2023 1:00 PM CDT): Stressed importance of continued A1c control to minimize the ferry terminal supervisor effects of diabetes. Bring accuchecks to office when instructed to do so. Check A1c about every 3-6 months. Take medication as prescribed. Get annual eye exam. Encouraged ELINA/Statin if able to tolerate. Encouraged weight control and encouraged diabetic diet and exercise. A1c is not well controlled and it contributes to her increased neuropathy. She can continue the gabapentin 300 b.i.d. but strongly encouraged tighter control to decrease symptoms and long-term sequela Assessment & Plan (12/17/2022 5:24 PM CDT): Continue to manage diabetes tightly. Continue with the Neurontin. Assessment & Plan (07/05/2021 11:19 AM ASSISTANT ACCOUNT MANAGER): Continue to manage diabetes tightly. Continue with the Neurontin. Assessment & Plan (01/13/2021 10:13 PM CDT): Stressed importance of continued A1c control to minimize the ferry terminal supervisor effects of diabetes. Bring accuchecks to office when instructed to do so. Check A1c about every 3-6 months. Take medication as prescribed. Get annual eye exam. Encouraged ELINA/Statin if able to tolerate. Encouraged weight control and encouraged diabetic diet and exercise. Continue Trulicity1.5, jardiance 25, Tresiba 10 units AM. I don't want to make changes as her A1c is better but she has been off multiple medications over the last months so it may actually be better controlled with daily meds as instructed. Recheck 3 months. Assessment & Plan (10/21/2020 8:39 PM CDT): Stressed importance of continued A1c control to minimize the ferry terminal supervisor effects of diabetes. Bring accuchecks to office when instructed to do so. Check A1c about every 3-6 months. Take medication as prescribed. Get annual eye exam. Encouraged ELINA/Statin if able to tolerate. Encouraged weight control and encouraged diabetic diet and exercise. Continue gabapentin Assessment & Plan (05/20/2020 8:49 PM ASSISTANT ACCOUNT MANAGER): Stressed importance of continued A1c control to minimize the ferry terminal supervisor effects of diabetes. Bring accuchecks to office when instructed to do so. Check A1c about every 3-6 months. Take medication as prescribed. Get annual eye exam. Encouraged ELINA/Statin if able to tolerate. Encouraged weight control and encouraged diabetic diet and exercise. Need to get labs to assess control. Assessment & Plan (12/06/2019 3:51 PM CDT): Stressed importance of continued A1c control to minimize the skilled nursing effects of diabetes. Bring accuchecks to office when instructed to do so. Check A1c about every 3-6 months. Take medication as prescribed. Get annual eye exam. Encouraged ELINA/Statin if able to tolerate. Encouraged weight control and encouraged diabetic diet and exercise. Continue metformin 500mg bid Jardiance 25po every day Tresiba 25units hs. Will check labs in 1 weeks. Reviewed with patient the A1c may Not be as fully controlled as would like as started at 15 and has only been more controlled the last few weeks. Will consider tapering of insulin with transition to Trulicity/ozempic if can get control as pt still having increased gas from the insulin. Assessment & Plan (11/20/2019 7:21 PM CDT): Stressed importance of continued A1c control to minimize the ferry terminal supervisor effects of diabetes. Bring accuchecks to office when instructed to do so. Check A1c about every 3-6 months. Take medication as prescribed. Get annual eye exam. Encouraged ELINA/Statin if able to tolerate. Encouraged weight control and encouraged diabetic diet and exercise. Get labs done and record accuchecks so adjustments can be made to achieve better control Assessment & Plan (10/26/2019 9:11 PM CDT): Still uncontrolled. Continue metformin and Jardiance. Change to Treseba at 20units hs. Monitor closely and see if tolerates different insulin better. Reviewed coupon use. Assessment & Plan (09/19/2019 9:58 AM CDT): Stressed importance of continued A1c control to minimize the skilled nursing effects of diabetes. Bring accuchecks to office when instructed to do so. Check A1c about every 3-6 months. Take medication as prescribed. Get annual eye exam. Encouraged ELINA/Statin if able to tolerate. Encouraged weight control and encouraged diabetic diet and exercise. Uncontrolled due to non-compliance with medication regimen. Pt restarted her insulin. Increased to 13units Basaglar bid. Increased by 2 units in 1-2 weeks if not approaching 150FBS. F.u in 4 weeks to reassess. Discussed considering GLP to decrease insulin load if bloating continues. Assessment & Plan (09/08/2019 9:19 AM CDT): microalbumin done in office. A1c machine was not working today so unable to obtain Assessment & Plan (05/16/2019 3:53 PM ASSISTANT ACCOUNT MANAGER): Stressed importance of continued A1c control to minimize the ferry terminal supervisor effects of diabetes. Bring accuchecks to office when instructed to do so. Check A1c about every 3-6 months. Take medication as prescribed. Get annual eye exam. Encouraged ELINA/Statin if able to tolerate. Encouraged weight control and encouraged diabetic diet and exercise. Continue current regimen. Assessment & Plan (02/13/2019 4:03 PM CDT): This is a significant, separately identifiable problem that was evaluated and managed on the same day as the wellness exam Stressed importance of continued A1c control to minimize the skilled nursing effects of diabetes. Bring accuchecks to office when instructed to do so. Check A1c about every 3-6 months. Take medication as prescribed. Get annual eye exam. Encouraged ELINA/Statin if able to tolerate. Encouraged weight control and encouraged diabetic diet and exercise. Await labs to determine plan. Reviewed she is to be taking the jardiance, metformin and basaglar together but as she adds all three together, depending on control, she may drop low. Encouraged to monitor her FBS closely and decrease her Basaglar by 10 initially when combining all three. She voiced understanding. The goal is to try to return to good control without Basaglar as she had full control without insulin prior to a recent hopsitlaizaiton. Gastroesophageal reflux disease without esophagi tis 12/31/2018 Assessment & Plan (06/26/2024 8:38 PM ASSISTANT ACCOUNT MANAGER): Continue PPI p.r.n. Assessment & Plan (03/27/2023 1:00 PM CDT): Continue PPI p.r.n. Assessment & Plan (10/21/2020 8:40 PM CDT): Stable without medication Assessment & Plan (05/16/2019 3:53 PM ASSISTANT ACCOUNT MANAGER): Currently stable without medication Assessment & Plan (02/13/2019 4:05 PM CDT): Stable without medication currently Fibromyalgia 12/31/2018 Assessment & Plan (06/28/2022 7:48 PM ASSISTANT ACCOUNT MANAGER): Continue gabapentin for pain and fibromyalgia symptoms Assessment & Plan (01/13/2021 10:14 PM CDT): Continue cymbalta Assessment & Plan (11/11/2020 9:36 PM CDT): Continue neurontin Assessment & Plan (05/16/2019 3:53 PM ASSISTANT ACCOUNT MANAGER): Stable with gabapentin Assessment & Plan (02/13/2019 4:04 PM CDT): Continue gabapentin Decreased peripheral vibratory sense 02/25/2018 Skin sensitivity 02/25/2018 Resolved Problems Problem Noted Date Diagnosed Date Resolved Date BMI 30.0-30.9,adult 07/01/2024 07/23/19 Assessment & Plan (07/01/2024 11:19 AM ASSISTANT ACCOUNT MANAGER): BMI Follow-up includes: Discussed diet and exercising counseling. BMI 29.0-29.9,adult 06/17/2024 07/01/19 Assessment & Plan (06/17/2024 10:23 AM ASSISTANT ACCOUNT MANAGER): Weight/BMI is in healthy range. Continue healthy lifestyle to maintain. Class 1 obesity due to exces s calories with serious comorbidity and body mass index (BMI) of 30.0 to 30.9 in adult 03/27/2023 06/26/2024 Assessment & Plan (05/14/2023 3:43 PM ASSISTANT ACCOUNT MANAGER): This is a chronic condition which continues Weight decreased by 3 lb since 03/23 Encouraged healthy eating and exercise Assessment & Plan (05/14/2023 3:42 PM ASSISTANT ACCOUNT MANAGER): >>ASSESSMENT AND PLAN FOR OBESITY (BMI 30-39.9) WRITTEN ON 03/27/2023 9:24 AM BY SAHRA URRUTIA MA Discussed the patient's BMI. The BMI is above average. BMI management plan is completed. BMI Follow-up includes: nutrition counseling, exercise counseling and education provided. >>ASSESSMENT AND PLAN FOR BMI 30.0-30.9,ADULT WRITTEN ON 03/27/2023 9:23 AM BY SAHRA URRUTIA MA Discussed the patient's BMI. The BMI is above average. BMI management plan is completed. BMI Follow-up includes: nutrition counseling, exercise counseling and education provided. BMI 29.0-29.9,adult 12/17/2022 03/27/20 Assessment & Plan (12/17/2022 5:32 PM CDT): Continue healthy lifestyle with weight bearing exercise and good nutrition BMI 30.0-30.9,adult 07/17/2022 12/18/19 Assessment & Plan (07/17/2022 4:47 PM ASSISTANT ACCOUNT MANAGER): Discussed the patient's BMI. The BMI is above average. BMI management plan is completed. BMI Follow-up includes: nutrition counseling, exercise counseling and education provided. Diabetes mellitus type II, controlled 07/05/2021 07/17/2022 Assessment & Plan (06/28/2022 7:49 PM ASSISTANT ACCOUNT MANAGER): Stressed importance of continued A1c control to minimize the ferry terminal supervisor effects of diabetes. Bring accuchecks to office when instructed to do so. Check A1c about every 3-6 months. Take medication as prescribed. Get annual eye exam. Encouraged ELINA/Statin if able to tolerate. Encouraged weight control and encouraged diabetic diet and exercise. Unsure of control. Need to check labs. She is been off of her medicine regimen for little while. Restart Trulicity at 0.75 weekly and increase as tolerated. Continue the Jardiance. She still has Tresiba but need to really see what her readings are. Once she gets the labs done can add that back in as needed. Stressed the importance of following up closely with her diabetes to avoid long-term sequela as stated above Assessment & Plan (11/17/2021 10:52 PM CDT): Stressed importance of continued A1c control to minimize the ferry terminal supervisor effects of diabetes. Bring accuchecks to office when instructed to do so. Check A1c about every 3-6 months. Take medication as prescribed. Get annual eye exam. Encouraged ELINA/Statin if able to tolerate. Encouraged weight control and encouraged diabetic diet and exercise. Need her to complete labs so we can determine full control and if her current regimen is appropriate. She plans to go for labs later in the week Assessment & Plan (07/05/2021 11:21 AM ASSISTANT ACCOUNT MANAGER): Stressed importance of continued A1c control to minimize the ferry terminal supervisor effects of diabetes. Bring accuchecks to office when instructed to do so. Check A1c about every 3-6 months. Take medication as prescribed. Get annual eye exam. Encouraged ELINA/Statin if able to tolerate. Encouraged weight control and encouraged diabetic diet and exercise. Need to get labs to have an updated A1c to determine control. Reviewed again that insulin needs to be every 24 hours and that doing the Tresiba every other day is not really helping with control. If she is concerned about too much she can decrease it to 7 units every day as well as continuing with her Trulicity and Jardiance. She voices understanding. Obesity (BMI 30-39.9) 06/13/20212022 Assessment & Plan (07/17/2022 4:06 PM ASSISTANT ACCOUNT MANAGER): Discussed the patient's BMI. The BMI is above average. BMI management plan is completed. BMI Follow-up includes: nutrition counseling, exercise counseling and education provided. Assessment & Plan (06/28/2022 7:48 PM ASSISTANT ACCOUNT MANAGER): Discussed the patient's BMI. The BMI is above average. BMI management plan is completed. BMI Follow-up includes: nutrition counseling, exercise counseling and education provided. Assessment & Plan (11/14/2021 3:42 PM CDT): Obesity is unchanged. Discussed the patient's BMI. The BMI is above average. BMI management plan is completed. BMI Follow-up includes: nutrition counseling, exercise counseling and education provided. Assessment & Plan (06/13/2021 3:38 PM ASSISTANT ACCOUNT MANAGER): Obesity is unchanged. Discussed the patient's BMI. The BMI is above average. BMI management plan is completed. BMI Follow-up includes: nutrition counseling, exercise counseling and education provided. BMI 31.0-31.9,adult 06/13/2021 07/17/19 23 Assessment & Plan (06/28/2022 7:48 PM ASSISTANT ACCOUNT MANAGER): Discussed the patient's BMI. The BMI is above average. BMI management plan is completed. BMI Follow-up includes: nutrition counseling, exercise counseling and education provided. Assessment & Plan (11/14/2021 3:42 PM CDT): Obesity is unchanged. Discussed the patient's BMI. The BMI is above average. BMI management plan is completed. BMI Follow-up includes: nutrition counseling, exercise counseling and education provided. Assessment & Plan (06/13/2021 3:38 PM ASSISTANT ACCOUNT MANAGER): Obesity is unchanged. Discussed the patient's BMI. The BMI is above average. BMI management plan is completed. BMI Follow-up includes: nutrition counseling, exercise counseling and education provided. Colon cancer screening 01/13/202106/28 Assessment & Plan (01/13/2021 10:15 PM CDT): Refer to Dr. Alvarez to do colonoscopy after age 50yo. BMI 31.0-31.9,adult 01/10/2021 08/13/19 25 Assessment & Plan (07/15/2024 11:17 AM ASSISTANT ACCOUNT MANAGER): Discussed the patient's BMI. The BMI is above average. BMI management plan is completed. BMI Follow-up includes: nutrition counseling, exercise counseling and education provided. Assessment & Plan (01/10/2021 3:05 PM CDT): Obesity is unchanged. Discussed the patient's BMI. The BMI is above average. BMI management plan is completed. BMI Follow-up includes: nutrition counseling, exercise counseling and education provided. Obesity (BMI 30-39.9) 11/01/20202021 Assessment & Plan (01/10/2021 3:05 PM CDT): Obesity is unchanged. Discussed the patient's BMI. The BMI is above average. BMI management plan is completed. BMI Follow-up includes: nutrition counseling, exercise counseling and education provided. Assessment & Plan (11/01/2020 3:09 PM CDT): Obesity is unchanged. Discussed the patient's BMI. The BMI is above average. BMI management plan is completed. BMI Follow-up includes: nutrition counseling, exercise counseling and education provided. BMI 30.0-30.9,adult 11/01/2020 01/11/20 21 Assessment & Plan (11/01/2020 3:09 PM CDT): Obesity is unchanged. Discussed the patient's BMI. The BMI is above average. BMI management plan is completed. BMI Follow-up includes: nutrition counseling, exercise counseling and education provided. Annual physical exam 10/21/2020 023 Assessment & Plan (11/17/2021 10:52 PM CDT): Encouraged healthy lifestyle, good nutrition and exercise. Encouraged Calcium and Vitamin D and weight bearing exercise for bone health. Reviewed immunizations Reviewed age appropirate screenings. Assessment & Plan (10/21/2020 8:42 PM CDT): Encouraged healthy lifestyle, good nutrition and exercise. Encouraged Calcium and Vitamin D and weight bearing exercise for bone health. Reviewed immunizations Reviewed age appropirate screenings. Breast cancer screening by mammogram 10/21/2020 12/17/2022 Assessment & Plan (06/28/2022 7:48 PM ASSISTANT ACCOUNT MANAGER): Mammogram order provided Assessment & Plan (01/13/2021 10:13 PM CDT): Mammogram order provided Assessment & Plan (10/21/2020 8:42 PM CDT): Mammogram order provided Obesity (BMI 30-39.9) 10/04/20202020 Assessment & Plan (10/04/2020 3:09 PM CDT): Obesity is unchanged. Discussed the patient's BMI. The BMI is above average. BMI management plan is completed. BMI Follow-up includes: nutrition counseling, exercise counseling and education provided. BMI 30.0-30.9,adult 10/04/2020 11/02/19 21 Assessment & Plan (10/04/2020 3:09 PM CDT): Obesity is unchanged. Discussed the patient's BMI. The BMI is above average. BMI management plan is completed. BMI Follow-up includes: nutrition counseling, exercise counseling and education provided. Urinary tract infection symptoms 09/08/2019 09/19/2019 Assessment & Plan (09/08/2019 9:20 AM CDT): Pt presents with dysuria. Urine dip completed. Send urine culture. Antibiotic to pharmacy. Reviewed bladder care. May use barrier cream external prn BMI 30.0-30.9,adult 05/11/2019 09/08/19 20 Assessment & Plan (05/11/2019 3:51 PM ASSISTANT ACCOUNT MANAGER): BMI Follow-up includes: Discussed diet and exercising counseling. Obesity (BMI 30-39.9) 05/11/20192019 Assessment & Plan (05/16/2019 3:53 PM ASSISTANT ACCOUNT MANAGER): BMI Follow-up includes: Discussed diet and exercising counseling. BMI 29.0-29.9,adult 02/07/2019 10/05/19 21 Assessment & Plan (09/08/2019 9:21 AM CDT): Weight/BMI is in healthy range. Continue healthy lifestyle to maintain. Assessment & Plan (02/13/2019 4:05 PM CDT): Weight/BMI is in healthy range. Continue healthy lifestyle to maintain. Annual physical exam 02/07/2019 019 Assessment & Plan (02/13/2019 4:05 PM CDT): Encouraged healthy lifestyle, good nutrition and exercise. Encouraged Calcium and Vitamin D and weight bearing exercise for bone health. Reviewed immunizations Reviewed age appropirate screenings. Needs Tdap Long-term insulin use ([facility]) 02/07/2019 07/17/2022 Assessment & Plan (11/17/2021 10:52 PM CDT): Continue insulin for diabetes control Assessment & Plan (01/13/2021 10:13 PM CDT): Continue Tresiba Assessment & Plan (10/21/2020 8:42 PM CDT): Encouraged to use her medications consistently. Will continue the Jardiance 25 mg hold the metformin. Will encourage Tresiba starting at 15 units HS every night to begin seen him if we can get control of her A1c. Reviewed with patient that taking it twice a week isn't controlling her symptoms and that ultimately were going to need to add meal insulin if we can get that 14 under control. She voiced understanding. Will monitor her readings and see her back in a month to reassess. Review signs symptoms of hypoglycemia. Assessment & Plan (10/26/2019 9:11 PM CDT): Continue with insulin use but change brand Assessment & Plan (09/19/2019 9:59 AM CDT): Restarted insulin. Monitor closely Assessment & Plan (05/16/2019 3:54 PM ASSISTANT ACCOUNT MANAGER): Continue with current regimen Assessment & Plan (02/13/2019 4:05 PM CDT): Still on days ago are Breast cancer screening 02/07/201905/01 Assessment & Plan (02/13/2019 4:05 PM CDT): Mammogram order provided Need for Tdap vaccination 02/07/2019 Assessment & Plan (02/13/2019 4:06 PM CDT): Updated in office today Fibromyalgia 02/25/2018 06/28/2022 Assessment & Plan (11/17/2021 10:51 PM CDT): Continue to remain active. Control chronic conditions and exercise. Encounters Date Type Department Care Team Description 10/31/[address] [place] [phone] Cathie Bolanos PA Medical Question/Miscellaneous 10/27/[address] [place] [phone] Cathie Bolanos PA Appointment Request 09/16/2024 Orders Only [address] [place] [phone] Provider, MD King 09/14/2024 3:30 PM CDT Office Visit [address] [place] [phone] Cathie Bolanos PA Otitis of left ear (Primary Dx); Recurrent major depressive disorder, in partial remission; Moderate episode of recurrent major depressive disorder (HCC); Type 2 diabetes mellitus without complication, with long-term current use of insulin (HCC); BMI 31.0-31.9,adult; Obesity (BMI 30.0-34.9) 09/13/2024 Nurse Triage [address] [place] [phone] Cathie Bolanos PA 08/31/[address] [place] [phone] Cathie Bolanos PA 08/24/[address] [place] [phone] Cathie Bolanos PA Medical Question/Miscellaneous 08/12/2024 10:00 AM CDT Office Visit [address] [place] [phone] Cathie Bolanos PA Uncontrolled type 2 diabetes mellitus with hyperglycemia (CMS/HCC) (HCC) (Primary Dx); Hypertension associated with diabetes (HCC); Moderate episode of recurrent major depressive disorder (HCC); Fatigue, unspecified type; Obesity (BMI 30.0-34.9); BMI 32.0-32.9,adult from Last 3 Months Immunizations Immunization Administration Dates Next Due Influenza, Unspecified 06/17/2024(Deferr ed: Patient Refused),06/01/2024(Deferred: Patient Refused),06/01/2024(Deferred: Patient Refused),06/01/2022(Deferred: Patient Refused),07/02/2021(Deferred: Patient Refused),06/01/2021(Deferred: Patient Refused),06/01/2020(Deferred: Patient Refused),05/01/2018(Deferred: Patient Refused) Pfizer SARS-CoV-2 Monovalent Vaccination (12+ Yrs) PURPLE 11/30/2020,11/09/2020 Tdap 02/07/2019 Surgical History Surgery Date Site/Laterality Comments SECTION TUBAL LIGATION SECTION x 3 CHOLECYSTECTOMY HERNIA REPAIR COLON SURGERY Medical History Medical History Date Comments Diabetes mellitus (HCC) Hypertension Family History Medical History Relation Name Comments Hypertension Maternal Grandmother Stroke Maternal Grandmother Aneurysm Mother Hypertension Mother Stroke Mother Heart disease Sister Relation Name Status Comments Father Maternal Grandmother Mother Sister Social History Tobacco Use Types Packs/Day Years Used Date Smoking Tobacco: Never Smokeless Tobacco: Never Tobacco Cessation:Counseling Given: Not Answered Alcohol Use Standard Drinks/Week Comments Yes 0 (1 standard drink = 0.6 oz pur e alcohol) 2/week AUDIT-C Answer Date Recorded Q1: How often do you have a drink containing alcohol? Never 09/14/2024 Q2: How many drinks containi ng alcohol do you have on a typical day when you are drinking? Patient does not drink Q3: How often do you have si x or more drinks on one occasion? 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 on file Not on file Not on file Not on file Not on file Not on file Not on file Obstetrics History Last Filed Vital Signs Vital Sign Reading Time Taken Comments Blood Pressure 128/82 09/14/2024 3:46 PM CDT Pulse 88 09/14/2024 3:46 PM CDT Temperature 36.6 C (97.9 F) 09/14/2024 3:46 PM CDT Respiratory Rate 16 06/19/2022 3:18 PM ASSISTANT ACCOUNT MANAGER Oxygen Saturation 98% 09/14/2024 3:46 PM CDT Inhaled Oxygen Concentration - - Weight 81.2 kg (179 lb) 09/14/2024 3:46 PM CDT Height 160 cm (5' 3) 09/14/2024 3:46 PM CDT Body Mass Index 31.71 09/14/2024 3:46 PM CDT Plan of Treatment Health Maintenance Due Date Last Done Comments Cervical Cancer Screening 1971 Hepatitis B Screening 1989 Pneumococcal vaccine <65 (1 of 2 - PCV) 1990 Zoster Vaccine (1 of 2) 2021 Covid-19 Vaccine (3 - 2023-2 5 season) 2024 11/30/2020, 11/09/2020 Foot Exam 05/14/2024 05/14/2023, 02/07/2019 Hemoglobin A1C 12/14/2024 06/16/2024, 03/02, 11/22/2022, Additional history exists Influenza Vaccine (Season Ended) 2025 Albumin Creatinine Ratio, Urine 06/16/2025 06/16/2024, 06/19/2023, 06/17/2022 Lipid Panel 06/16/2025 06/16/2024, 06/01, 11/22/2022, Additional history exists eGFR 06/16/2025 06/16/2024, 06/01, 06/19/2023, Additional history exists Regular Well Visit/Exam 18-64 06/17/2025, 12/17/2022, 11/14/2021, Additional history exists Breast Cancer Screening-Mammogram 07/29/2025 07/29/2024, 11/22/2022, 01/19/2021, Additional history exists Dilated Eye Exam 09/09/2025 09/09/2024, , 02/28/2021, Additional history exists Depression Screening 09/14/2025 09/14/2024, 08/12/2024, 07/15/2024, Additional history exists DTaP/Tdap/Td Vaccine (2 - Td or Tdap) 02/07/2029 02/07/2019 Colon Cancer Screening-Colonoscopy 03/11/20312020 Hepatitis C Screening Completed 04/22/2017 Procedures Procedure Name Priority Date/Time Associated Diagnosis Comments DIABETES EYE EXAM Routine 09/09/2024 12:26 PM CDT MAMMOGRAPHY Routine 07/29/2024 COMPREHENSIVE METABOLIC PANEL Routine 06/16/2024 Hypertension associated with diabetes (HCC) Type 2 diabetes mellitus without complication, with long-term current use of insulin (HCC) Annual physical exam HEMOGLOBIN A1C Routine 06/16/2024 Type 2 diabetes mellitus without complication, with long-term current use of insulin (HCC) Annual physical exam LIPID PANEL Routine 06/16/2024 Annual physical exam Hypercholesteremia ALBUMIN CREATININE RATIO, URINE Routine 06/16/2024 Type 2 diabetes mellitus without complication, with long-term current use of insulin (HCC) Annual physical exam COLONOSCOPY Routine 03/11/2021 HEPATITIS PANEL, ACUTE Routine 7 9:57 AM ASSISTANT ACCOUNT MANAGER from Last 3 Months or Most Recently Relevant to Health Maintenance Results * (ABNORMAL) DIABETES EYE EXAM (09/09/2024 12:26 PM CDT) Impressions Genoveva Mcgarry MA - 09/09/2024 12:26 PM CDT retinopathy Historical Provider [facility] Edited Result - Final * MAMMOGRAPHY (07/29/2024) Mammography Normal 07/29/2024 us Historical Provider MD HEALTH MAINTENANCE Final Result * (ABNORMAL) Albumin Creatinine Ratio, Urine (06/16/2024) SCRIBED Creatinine, Urine 293.8(A) 0 - 0 EXTERNAL LAB SCRIBED Micro ACR, Urine >1,140.0 0 - 16.7 EXTERNAL LAB SCRIBED Microalb/Creat Ratio >388 0 - 30 EXTERNAL LAB Urine 06/16/2024 Cathie FLOWERS LAB URINE ORDERABLES Final Result Performing Organization Address [facility]/ZIP Co de Phone Number EXTERNAL LAB * (ABNORMAL) Hemoglobin A1c (06/16/2024) Pathologist [facility] SCRIBED Hemoglobin A1c >14 0 - 0 % EXTERNAL LAB Comment:H Blood 06/16/2024 Cathie Bolanos ID LAB BLOOD ORDERABLES Final Result Performing Organization Address [facility] de Phone Number EXTERNAL LAB * (ABNORMAL) Lipid panel (06/16/2024) [facility] SCRIBED Cholesterol, Total 199 0 - 200 EXTERNAL LAB SCRIBED HDL 84 >35 - >35 EXTERNAL LAB SCRIBED LDL 77 <130 - 160 EXTERNAL LAB SCRIBED Triglycerides 106 <150 - <150 EXTERNAL LAB Blood 06/16/2024 Cathie Bolanos ID LAB BLOOD ORDERABLES Final Result Performing Organization Address [facility] de Phone Number EXTERNAL LAB * (ABNORMAL) Comprehensive metabolic panel (06/16/2024) SCRIBED Sodium 134(A) 137 - 145 mmol/L EXTERNAL LAB SCRIBED Potassium 3.7 3.4 - 5.0 mmol/L EXTERNAL LAB SCRIBED Chloride 100 98 - 107 mmol/L EXTERNAL LAB SCRIBED Carbon Dioxide 30 22 - 30 mmol/L EXTERNAL LAB SCRIBED Anion Gap 4 4 - 12 mmol/L EXTERNAL LAB SCRIBED Urea Nitrogen (BUN) 24(A) 7 - 17 mg/dl EXTERNAL LAB SCRIBED Creatinine 0.88 0.7 - 1.0 mg/dl EXTERNAL LAB SCRIBED Glucose 286(A) 65 - 110 mg/dl EXTERNAL LAB SCRIBED Calcium 9.1 8.4 - 10.2 mg/dl EXTERNAL LAB SCRIBED Bilirubin 0.5 0.2 - 1.3 mg/dl EXTERNAL LAB SCRIBED Plasma Protein 7.0 6.3 - 8.2 g/dl EXTERNAL LAB SCRIBED Albumin 3.6 3.5 - 5.1 g/dl EXTERNAL LAB SCRIBED Alkaline Phosphatase 146(A) 38 - 126 Units/L EXTERNAL LAB SCRIBED Alanine Transaminase (ALT) 33 6 - 35 Units/L EXTERNAL LAB SCRIBED Aspartate Transaminase (AST) 33 14 - 36 Units/L EXTERNAL LAB SCRIBED eGFR in NonAfrican Mexican >60 0.7 - 1.0 EXTERNAL LAB Blood 06/16/2024 Cathie FLOWERS LAB BLOOD ORDERABLES Edite d Result - Final EXTERNAL LAB * COLONOSCOPY (03/11/2021) Scribed Colonoscopy Abnormal Narrative Cathie Bolanos PA - 03/11/2021 Dr. Alvarez --->hyperplastic polyp Repeat 10 years Historical Provider HEALTH MAINTENANCE Final Result * Hepatitis panel, acute (04/22/2017 9:57 AM ASSISTANT ACCOUNT MANAGER) Pathologist [facility] Hep A IgM [facility] HISTORICAL RESULTS Comment: * Test not performed. * * No specimen received. * HepBsAg [facility] HISTORICAL RESULTS Comment: * Test not performed. * * No specimen received. * Hep B core IgM [facility] HISTORICAL RESULTS Comment: * Test not performed. * * No specimen received. * Hep C Ab TNP [facility] HISTORICAL RESULTS Comment: * Test not performed. * * No specimen received. * 04/22/2017 9:57 AM ASSISTANT ACCOUNT MANAGER 04/27/2017 3:20 PM ASSISTANT ACCOUNT MANAGER Narrative [facility] HISTORICAL RESULTS - 04/27/2017 3:01 PM ASSISTANT ACCOUNT MANAGER 0 0 PERFORMING LAB: [place], [facility] [address] [place] [address] Saul Urrutia D.O., MPH Historical Provider LAB MICROBIOLOGY - GENERA L ORDERABLES Final Result [facility] HISTORICAL RESULTS from Last 3 Months or Most Recently Relevant to Health Maintenance Insurance [facility] Care Teams Industrial Analyst Relationship Specialty Start Date End Date Cathie Bolanos PA [address] [place], [place] [id number] PCP - General Internal Medicine 11/10/18 Cathie Bolanos PA [address] [place], [place] [id number] Internal Medicine 11/10/18
--- OUTSIDE RECORDS SUMMARY | 2024-11-05 10:04 | XMS_ITS | Encounter Summary ---
Author Organization [facility] Healthcare Address [address] [place] [address] Care Team Providers Care Plumbing And Heating Contractor Name Role Phone Cathie Bolanos Primary Care Provider [phone] Cathie Bolanos Unavailable [phone] Reason for Visit * Reason Onset Date Comments Appointment Request 10/27/2024 Encounter Details Date Type Department Care Team (Late st Contact Info) Description 10/27/2024 Telephone [facility] Medical Group Family Medicine [address] [facility] [address] [place] [phone] Cathie Bolanos PA [address] [address] Appointment Request Social History Tobacco Use Types Packs/Day Years Used Date Smoking Tobacco: Never Smokeless Tobacco: Never Alcohol Use Standard Drinks/Week Comments Yes 0 [...] on file Legal 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 * Telephone Encounter - Mari Downing - 10/27/2024 9:13 AM CDT Appointment Request What visit type does the patient need? Visit Type: Established Patient What is the reason for the visit? Follow up with labs What is the reason we were unable to schedule the appointment? Current appointment availability didnot meet patient's need. -Unable to accommodate with her work schedule If applicable, were all members of the patient's PCP care team offered (e.g., nurse practioner(s), physician machine operator assistant(s)) ? N/A Additional Comments: The patient is asking to be worked in for her follow up. She will be doing labs this weekend. She has 6-6 off and is available very late in the day during the week. She wants to be seen before she goes on vacation at the end of October. Does message need to be routed? Yes-Action Needed documented in this encounter Plan of Treatment Not on file documented as of this encounter Visit Diagnoses Not on filedocumented in this encounter Care Teams Plumbing And Heating Contractor Relationship Specialty Start Date End Date Cathie Bolanos PA [address] [facility] [address] [place] [address] PCP - General Internal Medicine 11/10/18 Cathie Bolanos PA [address] [address] Internal Medicine 11/10/18 documented as of this encounter
--- OUTSIDE RECORDS SUMMARY | 2024-11-05 10:04 | XMS_ITS | Encounter Summary ---
Author Organization [facility] Healthcare Address [address] [place] [address] Care Team Providers Care Pharmacy Technician Program Director Name Role Phone Cathie Bolanos Primary Care Provider [phone]- [phone] Cathie Bolanos Unavailable [phone] Reason for Visit * Reason Onset Date Comments Medical Question/Miscellaneous 10/31/2024 Encounter Details Date Type Department Care Team (Late st Contact Info) Description 10/31/2024 Telephone [facility] Medical Group Family Medicine [address] 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 Called and LVM to make pt aware. * Telephone Encounter - Maty Travis - 10/31/2024 2:30 PM CDT Medical Question/Miscellaneous Caller???s Concern: patient wants her lab orders faxed to [facility]. She went to have them done a couple days ago and they did not have her orders. Fax not listed Does message need to be routed? Yes-Action Needed documented in this encounter Plan of Treatment Not on file documented as of this encounter Visit Diagnoses Not on filedocumented in this encounter Care Teams Pharmacy Technician Program Director Relationship Specialty Start Date End Date Cathie Bolanos PA [address] [place] [address] PCP - General Internal Medicine 11/10/18 Cathie Bolanos PA [address] [place] [address] Internal Medicine 11/10/18 documented as of this encounter
--- OUTSIDE RECORDS SUMMARY | 2024-11-05 10:04 | XMS_ITS | Referral Summary ---
Author Organization [facility] [address] [facility] Address [address] [place] [address] Care Team Providers Care Shrimp Boat Captain Name Role Phone Cathie Bolanos Primary Care Provider [phone] Cathie Bolanos Unavailable [phone] Encounters Date Type Department Care Team Description 10/31/2024 Telephone [facility] Family Medicine [address] [place] [address] [place] [phone] Cathie Bolanos PA Medical Question/Miscellaneous 10/27/2024 Telephone [facility] [address] [place] [address] [place] [phone] Cathie Bolanos PA Appointment Request 09/16/2024 Orders Only [facility] [address] [place] [address] Road [address] [place] [phone] ProviderKing MD 09/14/2024 3:30 PM CDT Office Visit [facility] [address] [place] [address] [place] [phone] Cathie Bolanos PA Otitis of left ear (Primary Dx); Recurrent major depressive disorder, in partial remission; Moderate episode of recurrent major depressive disorder (HCC); Type 2 diabetes mellitus without complication, with long-term current use of insulin (HCC); BMI 31.0-31.9,adult; Obesity (BMI 30.0-34.9) 09/13/2024 Nurse Triage [address] [place] [phone] Cathie Bolanos PA 08/31/[address] [place] [phone] Cathie Bolanos PA 08/24/[address] [place] [phone] Cathie Bolanos PA Medical Question/Miscellaneous 08/12/2024 10:00 AM CDT Office Visit [address] [place] [phone] Cathie Bolanos PA Uncontrolled type 2 diabetes mellitus with hyperglycemia (CMS/HCC) (HCC) (Primary Dx); Hypertension associated with diabetes (HCC); Moderate episode of recurrent major depressive disorder (HCC); Fatigue, unspecified type; Obesity (BMI 30.0-34.9); BMI 32.0-32.9,adult from Last 3 Months Allergies Active Allergy Reactions Criticality Noted Date [...] provided. Assessment & Plan (07/15/2024 11:17 AM CUSTOMER SERVICE ADVOCATE): Discussed the patient's BMI. The BMI is above average. BMI management plan is completed. BMI Follow-up includes: nutrition counseling, exercise counseling and education provided. Assessment & Plan (07/01/2024 11:19 AM CUSTOMER SERVICE ADVOCATE): Weight/BMI is in healthy range. Continue healthy lifestyle to maintain. Annual physical exam 12/17/2022 Assessment & Plan (06/26/2024 8:40 PM CUSTOMER SERVICE ADVOCATE): Encouraged healthy lifestyle, good nutrition and exercise. [...] of continued A1c control to minimize the buttermaker continuous churn effects of diabetes. Bring accuchecks to office [...] immediately Assessment & Plan (06/26/2024 8:41 PM CUSTOMER SERVICE ADVOCATE): This is a significant, separately identifiable problem [...] Offered referral to dietitian as well as chamfering machine operator and she declines these also. Assessment & Plan (03/27/2023 1:02 PM CDT): Stressed importance of continued A1c control to minimize the snf effects of diabetes. Bring accuchecks to office [...] re-evaluate Assessment & Plan (07/05/2021 11:20 AM CUSTOMER SERVICE ADVOCATE): Probably multifactorial. Check labs and followup to re-evaluate Assessment & Plan (01/13/2021 10:14 PM CDT): Probably multifactorial. Check labs and followup to re-evaluate Assessment & Plan (11/11/2020 9:37 PM CDT): Probably multifactorial. Check labs and followup to re-evaluate Uncontrolled type 2 diabetes mellitus with hyperglycemia ([facility]) 10/21/2020 Assessment & Plan (08/12/2024 8:22 PM CDT): Stressed importance of continued A1c control to minimize the buttermaker continuous churn effects of diabetes. Bring accuchecks to office [...] prior. Assessment & Plan (07/23/2024 8:02 PM CUSTOMER SERVICE ADVOCATE): Stressed importance of continued A1c control to minimize the buttermaker continuous churn effects of diabetes. Bring accuchecks to office [...] HS. Assessment & Plan (07/10/2024 7:17 PM CUSTOMER SERVICE ADVOCATE): Stressed importance of continued A1c control to minimize the snf effects of diabetes. Bring accuchecks to office [...] the continuous glucose monitor as well as residential builder and Endocrinology referral and she has declined all of those. She wants to work hard on doing medications as instructed to see where she ends up. Follow-up in 2 more weeks to continue to reinforce compliance. She is in agreement with the plan Assessment & Plan (06/26/2024 8:41 PM CUSTOMER SERVICE ADVOCATE): This is a significant, separately identifiable problem [...] Offered referral to dietitian as well as chamfering machine operator and she declines these also. Assessment & Plan (05/14/2023 3:41 PM CUSTOMER SERVICE ADVOCATE): This is a chronic condition which is [...] make a change willing to see the bible reader Assessment & Plan (12/17/2022 11:21 PM CDT): This is a significant, separately identifiable problem that was evaluated and managed on the same day as the wellness exam Stressed importance of continued A1c control to minimize the snf effects of diabetes. This includes but is [...] of continued A1c control to minimize the buttermaker continuous churn effects of diabetes. Bring accuchecks to office when instructed to do so. Check A1c about every 3-6 months. Take medication as prescribed. Get annual eye exam. Encouraged ELINA/Statin if able to tolerate. Encouraged weight control and encouraged diabetic diet and exercise. Assessment & Plan (11/11/2020 9:35 PM CDT): Stressed importance of continued A1c control to minimize the snf effects of diabetes. Bring accuchecks to office [...] of continued A1c control to minimize the snf effects of diabetes. Bring accuchecks to office [...] to. Assessment & Plan (05/20/2020 8:50 PM CUSTOMER SERVICE ADVOCATE): Probably multifactorial. Check labs and followup to re-evaluate Assessment & Plan (05/16/2019 3:54 PM CUSTOMER SERVICE ADVOCATE): Probably multifactorial. Check labs and followup to re-evaluate Assessment & Plan (02/13/2019 4:06 PM CDT): Probably multifactorial. Check labs and followup to re-evaluate Vitamin D deficiency 01/16/2019 Assessment & Plan (12/17/2022 5:29 PM CDT): Patient not currently supplementing vitamin D but was encouraged to do so. Assessment & Plan (10/21/2020 8:39 PM CDT): supplement Assessment & Plan (05/16/2019 3:54 PM CUSTOMER SERVICE ADVOCATE): supplement Assessment & Plan (02/13/2019 4:05 PM CDT): Supplement. Hypertension associated with diabetes 12/31/2018 Assessment & Plan (08/12/2024 8:21 PM CDT): Bp is stable/in acceptable range for any co-morbidities. Encouraged to limit sodium intake and exercise for weight control. [facility] Assessment & Plan (06/26/2024 8:38 PM CUSTOMER SERVICE ADVOCATE): Bp is stable/in acceptable range for any co-morbidities. Encouraged to limit sodium intake and exercise for weight control. Continue Tribenzor .5 Assessment & Plan (05/14/2023 3:41 PM CUSTOMER SERVICE ADVOCATE): This is a chronic condition which is at goal of less than 140/90 Personally reviewed labs. Continue olmesartan, amlodipine, hydrochlorothiazide Encouraged to monitor weight and B/P at home Encouraged to take medications as prescribed. Assessment & Plan (03/27/2023 12:57 PM CDT): Bp is stable/in acceptable range for any co-morbidities. Encouraged to limit sodium intake and exercise for weight control. Continue StackMobor .5 Assessment & Plan (12/17/2022 11:16 PM [...] week. Assessment & Plan (07/17/2022 4:47 PM CUSTOMER SERVICE ADVOCATE): Bp is stable/in acceptable range for any co-morbidities. Encouraged to limit sodium intake and exercise for weight control. [facility] & Plan (06/28/2022 7:47 PM CUSTOMER SERVICE ADVOCATE): Bp is stable/in acceptable range for any co-morbidities. Encouraged to limit sodium intake and exercise for weight control. [facility] Assessment & Plan (11/17/2021 10:51 PM CDT): Bp is stable/in acceptable range for any co-morbidities. Encouraged to limit sodium intake and exercise for weight control. [facility] Assessment & Plan (07/05/2021 11:19 AM CUSTOMER SERVICE ADVOCATE): Bp is stable/in acceptable range for any co-morbidities. Encouraged to limit sodium intake and exercise for weight control. [facility] Assessment & Plan (01/13/2021 10:12 PM CDT): Bp is stable/in acceptable range for any co-morbidities. Encouraged to limit sodium intake and exercise for weight control. [facility] Assessment & Plan (11/11/2020 9:36 PM CDT): Bp is stable/in acceptable range for any co-morbidities. Encouraged to limit sodium intake and exercise for weight control. [facility] Assessment & Plan (10/21/2020 8:39 PM CDT): Bp is stable/in acceptable range for any co-morbidities. Encouraged to limit sodium intake and exercise for weight control. Continue [facility]. bp well controlled Assessment & Plan (05/20/2020 8:50 PM CUSTOMER SERVICE ADVOCATE): Bp is stable/in acceptable range for any co-morbidities. Encouraged to limit sodium intake and exercise for weight control. Assessment & Plan (09/19/2019 9:58 AM CDT): Bp is stable/in acceptable range for any co-morbidities. Encouraged to limit sodium intake and exercise for weight control. stable Assessment & Plan (05/16/2019 3:53 PM CUSTOMER SERVICE ADVOCATE): Bp is stable/in acceptable range for any [...] 12/31/2018 Assessment & Plan (06/26/2024 8:40 PM CUSTOMER SERVICE ADVOCATE): Continue Lexapro 10 as her depression symptoms [...] daily. Assessment & Plan (07/17/2022 4:47 PM CUSTOMER SERVICE ADVOCATE): Stable with Lexapro 5 mg. Assessment & Plan (06/28/2022 7:48 PM CUSTOMER SERVICE ADVOCATE): Increased stressors at home. Restart Lexapro 10 mg. Assessment & Plan (11/17/2021 10:51 PM CDT): Patient still feels like her symptoms are controlled without medication. Will continue to monitor. Assessment & Plan (10/21/2020 8:40 PM CDT): Currently stable without medication. Continue to monitor closely Assessment & Plan (05/16/2019 3:54 PM CUSTOMER SERVICE ADVOCATE): Stable with lexapro Assessment & Plan (02/13/2019 4:06 PM CDT): Stable with the Lexapro 20 mg Diabetic neuropathy associat ed with type 2 diabetes mellitus 12/31/2018 Assessment & Plan (05/14/2023 3:42 PM CUSTOMER SERVICE ADVOCATE): States neuropathy well controlled with current dose of gabapentin Assessment & Plan (03/27/2023 1:00 PM CDT): Stressed importance of continued A1c control to minimize the buttermaker continuous churn effects of diabetes. Bring accuchecks to office [...] Neurontin. Assessment & Plan (07/05/2021 11:19 AM CUSTOMER SERVICE ADVOCATE): Continue to manage diabetes tightly. Continue with the Neurontin. Assessment & Plan (01/13/2021 10:13 PM CDT): Stressed importance of continued A1c control to minimize the buttermaker continuous churn effects of diabetes. Bring accuchecks to office [...] of continued A1c control to minimize the snf effects of diabetes. Bring accuchecks to office when instructed to do so. Check A1c about every 3-6 months. Take medication as prescribed. Get annual eye exam. Encouraged ELINA/Statin if able to tolerate. Encouraged weight control and encouraged diabetic diet and exercise. Continue gabapentin Assessment & Plan (05/20/2020 8:49 PM CUSTOMER SERVICE ADVOCATE): Stressed importance of continued A1c control to minimize the snf effects of diabetes. Bring accuchecks to office [...] of continued A1c control to minimize the snf effects of diabetes. Bring accuchecks to office [...] of continued A1c control to minimize the buttermaker continuous churn effects of diabetes. Bring accuchecks to office [...] of continued A1c control to minimize the snf effects of diabetes. Bring accuchecks to office [...] obtain Assessment & Plan (05/16/2019 3:53 PM CUSTOMER SERVICE ADVOCATE): Stressed importance of continued A1c control to minimize the snf effects of diabetes. Bring accuchecks to office [...] of continued A1c control to minimize the snf effects of diabetes. Bring accuchecks to office [...] 12/31/2018 Assessment & Plan (06/26/2024 8:38 PM CUSTOMER SERVICE ADVOCATE): Continue PPI p.r.n. Assessment & Plan (03/27/2023 1:00 PM CDT): Continue PPI p.r.n. Assessment & Plan (10/21/2020 8:40 PM CDT): Stable without medication Assessment & Plan (05/16/2019 3:53 PM CUSTOMER SERVICE ADVOCATE): Currently stable without medication Assessment & Plan (02/13/2019 4:05 PM CDT): Stable without medication currently Fibromyalgia 12/31/2018 Assessment & Plan (06/28/2022 7:48 PM CUSTOMER SERVICE ADVOCATE): Continue gabapentin for pain and fibromyalgia symptoms Assessment & Plan (01/13/2021 10:14 PM CDT): Continue cymbalta Assessment & Plan (11/11/2020 9:36 PM CDT): Continue neurontin Assessment & Plan (05/16/2019 3:53 PM CUSTOMER SERVICE ADVOCATE): Stable with gabapentin Assessment & Plan (02/13/2019 4:04 PM CDT): Continue gabapentin Decreased peripheral vibratory sense 02/25/2018 Skin sensitivity 02/25/2018 Resolved Problems Problem Noted Date Diagnosed Date Resolved Date BMI 30.0-30.9,adult 07/01/2024 07/23/19 Assessment & Plan (07/01/2024 11:19 AM CUSTOMER SERVICE ADVOCATE): BMI Follow-up includes: Discussed diet and exercising counseling. BMI 29.0-29.9,adult 06/17/2024 07/01/19 Assessment & Plan (06/17/2024 10:23 AM CUSTOMER SERVICE ADVOCATE): Weight/BMI is in healthy range. Continue healthy lifestyle to maintain. Class 1 obesity due to exces s calories with serious comorbidity and body mass index (BMI) of 30.0 to 30.9 in adult 03/27/2023 06/26/2024 Assessment & Plan (05/14/2023 3:43 PM CUSTOMER SERVICE ADVOCATE): This is a chronic condition which continues Weight decreased by 3 lb since 03/23 Encouraged healthy eating and exercise Assessment & Plan (05/14/2023 3:42 PM CUSTOMER SERVICE ADVOCATE): >>ASSESSMENT AND PLAN FOR OBESITY (BMI 30-39.9) [...] 12/18/19 Assessment & Plan (07/17/2022 4:47 PM CUSTOMER SERVICE ADVOCATE): Discussed the patient's BMI. The BMI is above average. BMI management plan is completed. BMI Follow-up includes: nutrition counseling, exercise counseling and education provided. Diabetes mellitus type II, controlled 07/05/2021 07/17/2022 Assessment & Plan (06/28/2022 7:49 PM CUSTOMER SERVICE ADVOCATE): Stressed importance of continued A1c control to minimize the buttermaker continuous churn effects of diabetes. Bring accuchecks to office [...] of continued A1c control to minimize the buttermaker continuous churn effects of diabetes. Bring accuchecks to office [...] week Assessment & Plan (07/05/2021 11:21 AM CUSTOMER SERVICE ADVOCATE): Stressed importance of continued A1c control to minimize the snf effects of diabetes. Bring accuchecks to office [...] 06/13/20212022 Assessment & Plan (07/17/2022 4:06 PM CUSTOMER SERVICE ADVOCATE): Discussed the patient's BMI. The BMI is above average. BMI management plan is completed. BMI Follow-up includes: nutrition counseling, exercise counseling and education provided. Assessment & Plan (06/28/2022 7:48 PM CUSTOMER SERVICE ADVOCATE): Discussed the patient's BMI. The BMI is [...] provided. Assessment & Plan (06/13/2021 3:38 PM CUSTOMER SERVICE ADVOCATE): Obesity is unchanged. Discussed the patient's BMI. The BMI is above average. BMI management plan is completed. BMI Follow-up includes: nutrition counseling, exercise counseling and education provided. BMI 31.0-31.9,adult 06/13/2021 07/17/19 23 Assessment & Plan (06/28/2022 7:48 PM CUSTOMER SERVICE ADVOCATE): Discussed the patient's BMI. The BMI is [...] provided. Assessment & Plan (06/13/2021 3:38 PM CUSTOMER SERVICE ADVOCATE): Obesity is unchanged. Discussed the patient's BMI. The BMI is above average. BMI management plan is completed. BMI Follow-up includes: nutrition counseling, exercise counseling and education provided. Colon cancer screening 01/13/202106/28 Assessment & Plan (01/13/2021 10:15 PM CDT): Refer to Dr. Alvarez to do colonoscopy after age 51yo. BMI 31.0-31.9,adult 01/10/2021 08/13/19 25 Assessment & Plan (07/15/2024 11:17 AM CUSTOMER SERVICE ADVOCATE): Discussed the patient's BMI. The BMI is [...] 12/17/2022 Assessment & Plan (06/28/2022 7:48 PM CUSTOMER SERVICE ADVOCATE): Mammogram order provided Assessment & Plan (01/13/2021 [...] 20 Assessment & Plan (05/11/2019 3:51 PM CUSTOMER SERVICE ADVOCATE): BMI Follow-up includes: Discussed diet and exercising counseling. Obesity (BMI 30-39.9) 05/11/20192019 Assessment & Plan (05/16/2019 3:53 PM CUSTOMER SERVICE ADVOCATE): BMI Follow-up includes: Discussed diet and exercising [...] appropirate screenings. Needs Tdap Long-term insulin use ([facility]) 02/07/2019 07/17/2022 Assessment & Plan (11/17/2021 10:52 [...] closely Assessment & Plan (05/16/2019 3:54 PM CUSTOMER SERVICE ADVOCATE): Continue with current regimen Assessment & Plan [...] remain active. Control chronic conditions and exercise. Immunizations Immunization Administration Dates Next Due Influenza, Unspecified 06/17/2024(Deferr ed: Patient Refused),06/01/2024(Deferred: Patient Refused),06/01/2024(Deferred: Patient Refused),06/01/2022(Deferred: Patient Refused),07/02/2021(Deferred: Patient Refused),06/01/2021(Deferred: Patient Refused),06/01/2020(Deferred: Patient Refused),05/01/2018(Deferred: Patient Refused) Pfizer SARS-CoV-2 Monovalent Vaccination (12+ Yrs) PURPLE 11/30/2020,11/09/2020 Tdap 02/07/2019 Social History Tobacco Use Types Packs/Day Years [...] on file Legal Sex Female 6:08 PM CUSTOMER SERVICE ADVOCATE Gender Identity Not on file Sexual Orientation Not on file 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 Not on file Not on file Not on file Not on file Not on file Not on file Not on file Last Filed Vital Signs Vital Sign Reading Time Taken Comments Blood Pressure 128/82 09/14/2024 3:46 PM CDT Pulse 88 09/14/2024 3:46 PM CDT Temperature 36.6 C (97.9 F) 09/14/2024 3:46 PM CDT Respiratory Rate 16 06/19/2022 3:18 PM CUSTOMER SERVICE ADVOCATE Oxygen Saturation 98% 09/14/2024 3:46 PM CDT Inhaled Oxygen Concentration - - Weight 81.2 kg (179 lb) 09/14/2024 3:46 PM CDT Height 160 cm (5' 3) 09/14/2024 3:46 PM CDT Body Mass Index 31.71 09/14/2024 3:46 PM CDT Plan of Treatment Not on file Procedures Procedure Name Priority Date/Time Associated Diagnosis [...] HEPATITIS PANEL, ACUTE Routine 7 9:57 AM CUSTOMER SERVICE ADVOCATE from Last 3 Months or Most Recently Relevant to Health Maintenance Results * (ABNORMAL) DIABETES EYE EXAM (09/09/2024 12:26 PM CDT) Impressions Genoveva Mcgarry MA - 09/09/2024 12:26 PM CDT retinopathy Historical Provider HEALTH MAINTENANCE Edited Result - Final * MAMMOGRAPHY (07/29/2024) Mammography Normal 07/29/2024 Historical Provider MD [facility] Final Result * (ABNORMAL) Albumin Creatinine Ratio, Urine (06/16/2024) SCRIBED Creatinine, Urine 293.8(A) 0 - 0 EXTERNAL LAB SCRIBED Micro ACR, Urine >1,140.0 0 - 16.7 EXTERNAL LAB SCRIBED Microalb/Creat Ratio >388 0 - 30 EXTERNAL LAB Urine 06/16/2024 Cathie FLOWERS LAB URINE ORDERABLES Final Result Performing Organization Address [facility]/ZIP Co de Phone Number EXTERNAL LAB * (ABNORMAL) Hemoglobin A1c (06/16/2024) Pathologist [facility] SCRIBED Hemoglobin A1c >14 0 - 0 % EXTERNAL LAB Comment:H Blood 06/16/2024 Cathie FLOWERS LAB BLOOD ORDERABLES Final Result Performing Organization Address [facility] Co de Phone Number EXTERNAL LAB * (ABNORMAL) Lipid panel (06/16/2024) [facility] SCRIBED Cholesterol, Total 199 0 - 200 EXTERNAL LAB SCRIBED HDL 84 >35 - >35 EXTERNAL LAB SCRIBED LDL 77 <130 - 160 EXTERNAL LAB SCRIBED Triglycerides 106 <150 - <150 EXTERNAL LAB Blood 06/16/2024 Cathie FLOWERS LAB BLOOD ORDERABLES Final Result Performing Organization Address [facility] de Phone Number EXTERNAL LAB * [...] Units/L EXTERNAL LAB SCRIBED eGFR in NonAfrican Indonesian >60 0.7 - 1.0 EXTERNAL LAB Blood 06/16/2024 Cathie FLOWERS LAB BLOOD ORDERABLES Edite d Result - Final EXTERNAL LAB * COLONOSCOPY (03/11/2021) Scribed Colonoscopy Abnormal Narrative Cathie Bolanos PA - 03/11/2021 Dr. Alvarez --->hyperplastic polyp Repeat 10 years Historical Provider HEALTH MAINTENANCE Final Result * Hepatitis panel, acute (04/22/2017 9:57 AM CUSTOMER SERVICE ADVOCATE) Hep [facility] Comment: * Test not performed. * * No specimen received. * HepBsAg [facility] Comment: * Test not performed. * * No specimen received. * Hep B core IgM TNP [facility] HISTORICAL RESULTS Comment: * Test not performed. * * No specimen received. * Hep C Ab TNP [facility] HISTORICAL RESULTS Comment: * Test not performed. * * No specimen received. * 04/22/2017 9:57 AM CUSTOMER SERVICE ADVOCATE 04/27/2017 3:20 PM CUSTOMER SERVICE ADVOCATE Narrative [facility] HISTORICAL RESULTS - 04/27/2017 3:01 PM CUSTOMER SERVICE ADVOCATE 0 0 PERFORMING LAB: [place], [facility] [address] [address], [place] [address] Saul Urrutia D.O., MPH Historical Provider LAB MICROBIOLOGY - GENERA L ORDERABLES Final Result [facility] HISTORICAL RESULTS from Last 3 Months or Most Recently Relevant to Health Maintenance Insurance [facility] Care Teams Shrimp Boat Captain Relationship Specialty Start Date End Date Cathie Bolanos PA [address] [place] [address] PCP - General Internal Medicine 11/10/18 Cathie Bolanos PA [address] [place] [address] Internal Medicine 11/10/18
--- OUTSIDE RECORDS SUMMARY | 2024-11-05 10:04 | XMS_ITS | Encounter Summary ---
Author Organization [facility] Facility Care Team Providers Care Medical Transport Specialist Name Role Phone Cathie Bolanos Primary Care Provider [phone] Cathie Bolanos Primary Care Provider [phone]- [phone] Cathie Bolanos Unavailable [phone] Encounter Details Date Type Department Care Team (Latest Contact Info) Description 08/08/2017 Orders Only [facility] Provider, MD King [address] [place] [address] Social History Tobacco Use Types Packs/Day Years Used Date Smoking Tobacco: Never Assessed Comments Unknown Sex and Gender Information Value Date Recorded Sex Assigned at Not on file Legal Sex Female 6:08 PM FERRY HAND Gender Identity Not on file Sexual Orientation Not on file documented as of this encounter Plan of Treatment Not on file documented as of this encounter Procedures Procedure Name Priority Date/Time Associated Diagnosis Comments SCAN - LABS 08/13/2017 12:00 AM CDT documented in this encounter Results * SCAN - LABS (08/13/2017 12:00 AM CDT) Narrative 08/13/2017 12:00 AM CDT Ordered by an unspecified provider. Historical Provider Final Res ult documented in this encounter Visit Diagnoses Not on filedocumented in this encounter Care Teams Medical Transport Specialist Relationship Specialty Start Date End Date Cathie Bolanos PA [address] [place] [address] PCP - General Internal Medicine 01/13/18 11/09/18 Cathie Bolanos PA [address] [place] [address] PCP - General Internal Medicine 11/10/18 Cathie Bolanos PA [address] [place] [address] Internal Medicine 11/10/18 documented as of this encounter
--- OUTSIDE RECORDS SUMMARY | 2024-11-05 10:04 | XMS_ITS | Encounter Summary ---
Author Organization [facility] Facility Care Team Providers Care Jewelry Drilling Machine Operator Name Role Phone Cathie Bolanos Primary Care Provider [phone] Cathie Bolanos Primary Care Provider [phone]- [phone] Cathie Bolanos Unavailable [phone] Encounter Details Date Type Department Care Team (Latest Contact Info) Description 07/31/2015 Orders Only [facility] CLINCONV Provider, MD King [address] [place] [address] Social History Tobacco Use Types Packs/Day Years Used Date Smoking Tobacco: Never Assessed Comments Unknown Sex and Gender Information Value Date Recorded Sex Assigned at Not on file 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 us Historical Provider Final Res ult * SCAN - LABS (08/30/2015 12:00 AM CDT) Narrative 08/30/2015 12:00 AM CDT Ordered by an unspecified provider. us Historical Provider Final Res ult * SCAN - LABS (08/24/2015 12:00 AM CDT) Narrative 08/24/2015 12:00 AM CDT Ordered by an unspecified provider. us Historical Provider Final Res ult documented in this encounter Visit Diagnoses Not on filedocumented in this encounter Care Teams Jewelry Drilling Machine Operator Relationship Specialty Start Date End Date Cathie Bolanos PA [address] [place] [address] PCP - General Internal Medicine 01/13/18 11/09/18 Cathie Bolanos PA [address] [place] [address] PCP - General Internal Medicine 11/10/18 Ctahie Bolanos PA [address] [place] [address] Internal Medicine 11/10/18 documented as of this encounter
--- OUTSIDE RECORDS SUMMARY | 2024-11-05 10:04 | XMS_ITS | Continuity of Care Document ---
Author Organization [facility] Address [address] [place] [address] Phone Care Team Providers Care Stringed Instrument Assembler Name Role Phone Demetri Goodson MD, MD Unavailable Unavailable Medications Medication Instructions Dosage Effective Dates (start - stop) Status Comments ketorolac 0.4 % Eye Drops instill one drop in operative eye QID starting 3 days BEFORE surgery and continuing for 4 weeks AFTER surgery. - Active Procedures Procedure Date YAG PC AFTER CATARACT LASER SURGERY AFTER CATARACT LASER SURGERY EYE EXAM & TREATMENT SPECIAL EYE EXAM, INITIAL CATARACT SURG W/IOL, 1 STAGE CATARACT SURG W/IOL, 1 STAGE CATARACT SURG W/IOL, 1 STAGE OFFICE/OUTPATIENT VISIT, NEW SPECIAL EYE EXAM, INITIAL SPECIAL EYE EXAM, INITIAL OPHTHALMIC BIOMETRY OPHTHALMIC BIOMETRY Advance Directives Directive Yes / No Effective Date File Name No Information Encounters Encounter Description Practice Location Reason(s) For Visit Diagnoses Date Provider Providers Copied on Encounter [facility], [address], [place], [place], [id number], [place] tel:[phone] [facility] No Information 5 Hamzah Mosquera. [address], [address], [place], [place], [id number] , [place]. tel:[phone] Referring Provider: Demetri Mederos, [address], [place], [address] . tel:[phone] [facility], [address] [place] [address], [id number], tel:[phone] [address] [place] [address] No Information 5 Hamzah Mosquera. [address], [address], [place], [place], [address] , [place]. tel:[phone] Referring Provider: Demetri Mederos, [address], [place], [address] . tel:[phone] [facility], [address] [place] [address], [id number], tel:[phone] [facility] Information 5 Hamzah Mosquera. [address], [address], [place], [place], [address] , [place]. tel:[phone] Referring Provider: Demetri Mederos, [address], [place], [address] . tel:[phone] [facility], [address] [place] [address], [id number], tel:[phone] [address] [place] [address] No Information 4 Hamzah Mosquera. [address], [address], [place], [place], [address] , [place]. [phone] Referring Provider: Demetri Goodson MD P, [address], [place], [address] . tel:[phone] [facility], [address] [place] [address], [id number], [place] tel:[phone] [address] [place] [address] No Information 4 Hamzah Mosquera. [address], [address], [place], [place], [id number] , [place]. [phone] Referring Provider: Demetri Gira MD P, [address], [place], [address] . tel:[phone] OFFICE/OUTPA TIENT VISIT, [facility], [address], [place], [place], [id number], tel:[phone] [facility] No Information 4 Hamzah Mosquera. [address], [address], [place], [place], [address] , [place]. tel:[phone] Referring Provider: Demetri Goodson MD P, [address], [place], [address] . tel:[phone] Family History Family Member Type Diagnosis Age At Onset No Information Payers Payer name Insurance type Covered constitution party ID Erasmo decker(s) [facility] [id number] Social History Type Description Quantity Date Captured Comments Sex Female Smoking Status No Information Chief Complaint And Reason For Visit No Information Reason For Referral Reason For Referral No Information History Of Present Illness Encounter Date Complaint History Of Prese nt Illness No Information Functional Status Date Functional Assessmen t No Information Instructions Date Instruction Additional Infor mation No Information Assessments Type Assessment Date No Information Patient Care Teams Name Effective Dates (start - stop) Status Members No Information
--- OUTSIDE RECORDS SUMMARY | 2024-11-05 10:04 | XMS_ITS | Encounter Summary ---
Author Organization [facility] Healthcare Address [address] [place] [address] Care Team Providers Care Housing Inspectors Name Role Phone Cathie Bolanos Primary Care Provider [phone] Cathie Bolanos Unavailable [phone] Reason for Visit * Reason Onset Date Comments Earache 09/13/2024 Hyperglycemia 09/13/2024 Dizziness 09/13/2024 Encounter Details Date Type Department Care Team (Late st Contact Info) Description 09/13/2024 Nurse Triage [facility] Medical Group Family Medicine [address] [place] [address] Cathie Bolanos PA [address] [facility] [address] [place] [address] Social History Tobacco Use Types Packs/Day Years [...] on file 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 Never 09/14/2024 3:42 PM TATIT Genoveva Mcgarry M A Q2: How many drinks containing alcohol do you have on a typical day when you are drinking? Patient does not drink 09/14/2024 3:42 PM CDT Genoveva Mcgarry MA Q3: How often do you have six or more drinks on one occasion? Never 09/14/2024 3:42 PM CDT Genoveva Mcgarry M A documented as of this encounter Miscellaneous Notes * Telephone Encounter - Ruthann Patton MA - 09/14/2024 11:49 AM CDT Patient has been added to today's schedule. * Telephone Encounter - Ruthann Patton MA - 09/14/2024 11:30 AM CDT Left message for patient to call the office. Please transfer to Ruthann or Tierra. * Telephone Encounter - Cathie Bolanos PA - 09/14/2024 11:22 AM CDT Patient needs seen -- Her ear needs evaluated -- If she has an infection it needs treated as this has been going since early August. Then antihistamine and Flonase will not affect her glucose readings, but an infection may. Ok to double book this afternoon. If she can't come in, then she needs to go to -- * Telephone Encounter - Ruthann Patton MA - 09/14/2024 8:13 AM CDT Patient returned call and was scheduled to be seen on 09/23/24. She reports her B/S reading this morning was 232. It has been consistently in the 200's for the past week and half. Patient is having vertigo also. She was wondering if one of the medications she used for her earache could have caused her B/S to go high. She used IB, Flonase and OTC eardrops. Patient said she needs a script for her Baslagar because she tried refilling it and couldn't. Gabrielle Palacios was the last one to prescribe this medication. * Telephone Encounter - Janeth Segundo LPN - 09/13/2024 9:48 AM CDT Called and LVM for pt to return call for assistance with scheduling appt. Please transfer through to office. * Telephone Encounter - Aleshia Wilson RN - 09/13/2024 9:20 AM CDT Justin Rodrigues calling about ongoing rt ear pain since 08/31. In the last 2 days is having some dizziness and blood sugar is running higher. Ear is better , no pain only itching but feels off balanceon standing. Woozy sensation when standing and has to hold on for a minute and then she is not having issues walking. No spinning sensation. BS 232 today and in the 200's the last couple of days. No drainage from ear, decreased hearing, or fever. No neck stiffness. States the off balance sensation is similar to when she takes her Gabapentin, but is not taking it. Tasking her DM meds without issueand states nothing else has changed to cause her bs to be up. Advised she be evaluated today. No office appts available today and pt is at work and states she is not available till Thursday. No office appt available Thursday. Declined CC appt, wants to come in to see LIONEL Bolanos. States she may be available next Thursday. Tasking message and to office for advice and follow up with pt about next steps. Home care reviewed. Advised pt to call back if symptoms worsen or with any other concerns/questions. Pt verbalized understanding. Reason for Disposition MODERATE dizziness (e.g., interferes with normal activities) (Exception: Dizziness caused by heat exposure, sudden standing, or poor fluid intake.) Patient wants to be seen Protocols used: Ivggvuuwo-Glwkm-IM, Diabetes - High Blood Ufsso-Hhycx-FH * Telephone Encounter - Aleshia Wilson RN - 09/13/2024 9:13 AM CDT Regarding: Dizziness, Ear Pain, Elevated Blood Sugar ----- Message from [facility] Roxy sent at 09/13/2024 9:10 AM CDT ----- Symptom Based Call Chief Complaint(s): Dizziness, Ear Pain, Elevated Blood Sugar Duration: ear pain started 08/31, other s/s x 2 days What type of symptom(s) is the patient experiencing? Red Flag. Is the patient concerned they are experiencing a medical emergency requiring an ambulance? No Additional Comments: Patient spoke with practice 08/31 regarding right ear pain, followed OTC recommendations from that encounter. Patient called to schedule an appt due to continued ear pain, stating her blood sugar has also been elevated, in the 200s for the past couple of days, reported reading of232 today. Patient stated she has felt dizzy/woozy. Routing to gang hemstitching machine operator due to Red Flag symptom. Does message need to be routed? Yes-Action Needed documented in this encounter Plan of Treatment Not on file documented as of this encounter Visit Diagnoses Not on filedocumented in this encounter Care Teams Housing Inspectors Relationship Specialty Start Date End Date Cathie Bolanos PA [address] [place] [address] PCP - General Internal Medicine 11/10/18 Cathie Bolanos PA [address] [place] [address] Internal Medicine 11/10/18 documented as of this encounter
[2024-11-05 10:31] LABS: Basophils Percent Auto 0.7 % (0.2-1.2); Eosinophils Absolute Auto 0.3 K/mm3 (0-0.3); Eosinophils Percent Auto 4.5 % (0-4.4); Hematocrit 39.1 % (37.0-47.0); Hemoglobin 12.7 g/dL (12.0-15.0); Lymphocytes Absolute Auto 1.55 K/mm3 (0.9-3.2); Mean Corpuscular HGB Conc 32.5 g/dl (32-36); Mean Corpuscular Hemoglobin 29.9 pg (26-34); Mean Platelet Volume 11.4 fl (7.4-10.4); Monocytes Absolute Auto 0.6 K/mm3 (0.1-0.6); Monocytes Percent Auto 9.7 % (2.6-8.5); Neutrophils Absolute Auto 3.5 K/mm3 (1.3-6.7); Neutrophils Percent Auto 59.1 % (45.5-73.1); Platelet Count Result 207 k/mm3 (150-375); Red Blood Count 4.25 M/mm3 (4.2-5.4); Red Cell Distribution Width 12.5 % (11.5-14.5)
[2024-11-05 10:57] LABS: Alanine Aminotransferase 30 U/L (6-35); Alkaline Phosphatase 120 U/L (38-126); Anion Gap 6 mmol/L (4-12); Aspartate Amino Transferase 29 U/L (14-36); Bilirubin,Total 0.4 mg/dL (0.2-1.3); Blood Urea Nitrogen 27 mg/dL (7-17); Calcium 9.5 mg/dL (8.4-10.2); Carbon Dioxide 25 mmol/L (22-30); Chloride 107 mmol/L (98-107); Cholesterol 202 mg/dL (0-200); Estimated Glomerular Filt Rate > 60; Glucose 190 mg/dL (65-110); HDL Direct 82 mg/dL; Potassium 3.9 mmol/L (3.4-5.0); Sodium 138 mmol/L (137-145); Total Protein 7.4 g/dL (6.3-8.2); Triglycerides 174 mg/dL (<150)
[2024-11-05 11:09] LABS: LDL Cholesterol Direct 65 mg/dL
[2024-11-05 11:19] LABS: Hemoglobin A1C 11.4 % (<5.7)
[2024-11-05 11:29] LABS: Thyroid Stimulating Hormone 0.687 uIU/mL (0.465-4.680)
== END 2024-11-05 09:57 | disposition home or self-care (01) ==
LOC: ANHLAB 10:02
PROVIDERS: PCP Physician Assistant; Visit Provider Physician Assistant
DX: I15.2 Hypertension secondary to endocrine disorders (principal); R53.83 Other fatigue
CPT/HCPCS: 36415; 80053; 80061; 82607; 83036; 84443; 85025

== ENCOUNTER 2024-12-16 12:29 | Outpatient (CLI) | payer BC, SELFPAY ==
--- OUTSIDE RECORDS SUMMARY | 2024-12-16 12:33 | XMS_ITS | Encounter Summary ---
Author Organization [facility] Healthcare Address [address] [place] [address] Care Team Providers Care Gelatin Powder Mixer Name Role Phone Cathie Bolanos Primary Care Provider [phone] Cathie Bolanos Unavailable [phone] Reason for Referral * Cardiology (Routine) - Pending Review Specialty Diagnoses / Procedures Referred By Hesham kaur Referred To Contact Diagnoses Lower extremity edema Procedures Transthoracic Echo (TTE) Complete W Doppler/CF Cathie Bolanos PA [address] [facility] [address] [place] [address] Phone: tel: fax: External Order Referral ID Status Reason Start Date Expiration Date V isits Requested Visits Authorized [id number] Pending Review 12/16/2024 01/15/2026 1 1 Reason for Visit * Reason Comments Paperwork Discuss Paperwork Encounter Details Date Type Department Care Team (Late st Contact Info) Description 12/16/2024 11:30 AM CDT Office Visit [facility] Medical Group Family Medicine [address] [place] [address] Cathie Bolanos PA [address] [place] [address] BMI 31.0-31.9,adult (Primary Dx); Obesity (BMI 30-39.9); Lower extremity edema Social History Tobacco Use Types Packs/Day Years Used Date Smoking Tobacco: Never Smokeless Tobacco: Never Alcohol Use Standard Drinks/Week Comments Yes 0 (1 standard drink = 0.6 oz pur e alcohol) 2/week AUDIT-C Answer Date Recorded Q1: How often do you have a drink containing alc ohol? Monthly or less 12/16/2024 Q2: How many drinks containi ng alcohol do you have on a typical day when you are drinking? 1 or 2 12/16/2024 Q3: How often do you have si x or more drinks on one occasion? 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 Not on file Not on file Not on file Not on file Not on file Not on file documented as of this encounter Last Filed Vital Signs Vital Sign Reading Time Taken Comments Blood Pressure 126/72 12/16/2024 11:15 AM CDT Pulse 89 12/16/2024 11:15 AM CDT Temperature 36.7 C (98.1 F) 12/16/2024 11:15 AM CDT Respiratory Rate - - Oxygen Saturation 99% 12/16/2024 11:15 AM CDT Inhaled Oxygen Concentration - - Weight 80.7 kg (178 lb) 12/16/2024 11:15 AM CDT Height 160 cm (5' 3) 12/16/2024 11:15 AM CDT Body Mass Index 31.53 12/16/2024 11:15 AM CDT documented in this encounter Functional Status * Audit-C Score Answer Date of Assessment Author 1 12/16/2024 11:16 AM CDT Genoveva Mcgarry MA * Question Answer Date of Assessment Author Q1: How often do you have a drink containing alcohol? Monthly or less 12/16/2024 11:16 AM CDT Genoveva Mcgarry MA Q2: How many drinks containing alcohol do you have on a typical day when you are drinking? 1 or 2 12/16/2024 11:16 AM CDT Genoveva Mcgarry MA Q3: How often do you have six or more drinks on one occasion? Never 12/16/2024 11:16 AM CDT Genoveva Mcgarry MA documented as of this encounter Ordered Prescriptions Prescription Sig Dispense Quantity Refills Last Filled Start Date End Date spironolactone (ALDACTONE) 50 mg tablet Take 1 tablet (50 mg total) by mouth daily 90 tablet 12/16/2024 12/16/2025 documented in this encounter Miscellaneous Notes * Assessment & Plan Note - Genoveva Mcgarry MA - 12/16/2024 11:18 AM CDT Associated Problem(s): Obesity (BMI 30-39.9) Discussed the patient's BMI. The BMI is above average. BMI management plan is completed. BMI Follow-up includes: nutrition counseling, exercise counseling and education provided. * Assessment & Plan Note - Genoveva Mcgarry MA - 12/16/2024 11:17 AM CDT Associated Problem(s): Obesity (BMI 30.0-34.9) Discussed the patient's BMI. The BMI is above average. BMI management plan is completed. BMI Follow-up includes: nutrition counseling, exercise counseling and education provided. documented in this encounter Plan of Treatment Scheduled Orders Name Type Priority Associated Diagnoses Order Schedule Uric acid Lab Routine Lower extremity edema Expected: 12/16/2024, Expires: 12/16/2025 Comprehensive metabolic panel Lab Routine Lower extremity edema Expected: 12/16/2024, Expires: 12/16/2025 Magnesium Lab Routine Lower extremity edema Expected: 12/16/2024, Expires: 12/16/2025 Pro B-type natriuretic peptide Lab Routine Lower extremity edema Expected: 12/19/2024, Expires: 12/16/2025 Transthoracic Echo (TTE) Complete W Doppler/CF Echocardiography Routine Lower extremity edema Expected: 12/16/2024, Expires: 03/18/2026 documented as of this encounter Visit Diagnoses Diagnosis BMI 31.0-31.9,adult- Primary Obesity (BMI 30-39.9) Lower extremity edema Edema documented in this encounter Discontinued Medications Medication Sig Discontinue Reason Start Date End Da te gabapentin (NEURONTIN) 300 mg capsuleIndications:Uncont rolled type 2 diabetes mellitus with hyperglycemia (HCC) Take 1 capsule (300 mg total) by mouth 2 (two) times a day E11.65 05/14/2023 12/16/2024 documented as of this encounter Care Teams Gelatin Powder Mixer Relationship Specialty Start Date End Date Cathie Bolanos PA [address] [place] [address] PCP - General Internal Medicine 11/10/18 Cathie Bolanos PA [address] [place] [address] Internal Medicine 11/10/18 documented as of this encounter
--- OUTSIDE RECORDS SUMMARY | 2024-12-16 12:33 | XMS_ITS | Encounter Summary ---
Author Organization [facility] Healthcare Address [address] [place] [address] Care Team Providers Care Precision Aircraft Structure Assembler Name Role Phone Cathie Bolanos Primary Care Provider [phone] Cathie Bolanos Unavailable Reason for Visit * Reason Onset Date Comments Earache 09/13/2024 Hyperglycemia 09/13/2024 Dizziness 09/13/2024 Encounter Details Date Type Department Care Team (Late st Contact Info) Description 09/13/2024 Nurse Triage [facility] Medical Group Family Medicine [address] [place] [address] Cathie Bolanos PA [address] [facility] [address] [place] [address] Social History Tobacco Use Types [...] on file Legal 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 Routing to insurance administrator due to Red Flag symptom. Does message need to be routed? Yes-Action Needed documented in this encounter Plan of Treatment Not on file documented as of this encounter Visit Diagnoses Not on filedocumented in this encounter Care Teams Precision Aircraft Structure Assembler Relationship Specialty Start Date End Date Cathie Bolanos PA [address] [place] [address] PCP - General Internal Medicine 11/10/18 Cathie Bolanos PA [address] [place] [address] Internal Medicine 11/10/18 documented as of this encounter
--- OUTSIDE RECORDS SUMMARY | 2024-12-16 12:33 | XMS_ITS | Encounter Summary ---
Author Organization [facility] Facility Care Team Providers Care Fellmongering Machine Operator Name Role Phone Cathie Bolanos Primary Care Provider [phone] Cathie Bolanos Primary Care Provider [phone]- [phone] Cathie Bolanos Unavailable [phone] Encounter Details Date Type Department Care Team (Latest Contact Info) Description 08/08/2017 Orders Only [facility]IN[facility] Provider, MD King [address] [place] [address] Social History Tobacco Use Types Packs/Day Years Used Date Smoking Tobacco: Never Assessed Comments Unknown Sex and Gender Information Value Date Recorded Sex Assigned at Not on file 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
--- OUTSIDE RECORDS SUMMARY | 2024-12-16 12:33 | XMS_ITS | Continuity of Care Document ---
Author Organization [facility] Address [address] [facility] [address] [place] [address] Phone Care Team Providers Care Electronic Prepress System Operator Name Role Phone Demetri Goodson MD, MD [...] Providers Copied on Encounter [facility], [address], [place], [place], [id number], [place] tel:[phone] [facility] No Information 5 Hamzah Mosquera. [address], [address], [place], [place], [id number] , [place]. tel:[phone] Referring Provider: Demetri Mederos, [address], [place], [address] . tel:[phone] [facility], [address] [place] [address], [id number], tel:[phone] [address] [place] [address] No Information 5 Hamzah Mosquera. [address], [place], [place], [id number] , [place]. tel:[phone] Referring Provider: Demetri Mederos, [address], [place], [address] . tel:[phone] [facility], [address] [place] [address], [id number], tel:[phone] [facility] No Information 5 Hamzah Mosquera. [address], [address], [place], [place], [id number] , [place]. tel:[phone] Referring Provider: Demetri Mederos, [address], [place], [address] . tel:[phone] [facility], [address] [place] [address], [id number], tel:[phone] [address] [place] [address] No Information 4 Hamzah Mosquera. [address], [place], [place], [id number] , [place]. [phone] Referring Provider: Demetri Goodson MD P, [address], [place], [address] . tel:[phone] [facility], [address] [place] [address], [id number], [place] tel:[phone] [address] [place] [address] No Information 4 Hamzah Mosquera. [address], [place], [place], [id number] , [place]. [phone] Referring Provider: Demetri Gira MD P, [address], [place], [address] . tel:[phone] OFFICE/OUTPA TIENT VISIT, [facility], [address], [place], [place], [id number], tel:[phone] [facility] No Information 4 Hamzah Mosquera. [address], [address], [place], [place], [id number] , [place]. tel:[phone] Referring Provider: Demetri Goodson MD P, [address], [place], [address] . tel:[phone] Family History Family Member Type Diagnosis Age At Onset No Information Payers Payer name Insurance type Covered green party ID Erasmo decker(s) [facility] [id number] Social History Type Description Quantity Date Captured [...]
--- OUTSIDE RECORDS SUMMARY | 2024-12-16 12:33 | XMS_ITS | Encounter Summary ---
Author Organization [facility] Address [address] [place] [address] Care Team Providers Care Rn Coronary Care Unit Name Role Phone Cathie Bolanos Primary Care Provider [phone] Cathie Bolanos Unavailable [phone] Reason for Visit * Reason Onset Date Comments Forms Request 12/13/2024 Encounter Details Date Type Department Care Team (Late st Contact Info) Description 12/13/2024 Telephone [facility] Family Medicine [address] [facility] [address] [place] [address] Cathie Bolanos PA [address] [address] Forms Request Social History Tobacco Use Types Packs/Day [...] file Legal Sex Female 6:08 PM [employer] Gender Identity Not on file Sexual Orientation Not on file 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 Monthly or less 12/16/2024 11:16 AM TATIT Genoveva Mcgarry MA Q2: How many drinks containing alcohol do you have on a typical day when you are drinking? 1 or 2 12/16/2024 11:16 AM Genoveva Arceo MA Q3: How often do you have six or more drinks on one occasion? Never 12/16/2024 11:16 AM Genoveva Arceo MA documented as of this encounter Miscellaneous Notes * Telephone Encounter - Ruthann Patton MA - 12/13/2024 2:45 PM CDT Patient scheduled 12/16/2024. * Telephone Encounter - Cathie Bolanos PA - 12/13/2024 1:44 PM CDT Will need an appointment to discuss/review paperwork. 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 Patient How to return form to patient:sending to patient as attachment via [employer] Additional Comments: patient will drop off on Thursday Does message need to be routed? Yes-Action Needed documented in this encounter Plan of Treatment Not on file documented as of this encounter Visit Diagnoses Not on filedocumented in this encounter Care Teams Rn Coronary Care Unit Relationship Specialty Start Date End Date Cathie Bolanos PA [address] [place] [address] PCP - General Internal Medicine 11/10/18 Cathie Bolanos PA [address] [place] [address] Internal Medicine 11/10/18 documented as of this encounter
--- OUTSIDE RECORDS SUMMARY | 2024-12-16 12:33 | XMS_ITS | Clinical Summary ---
Author Organization [facility] Address [address] [place] [address] Care Team Providers Care Financial Report Service Sales Agent Name Role Phone Cathie Bolanos Primary Care Provider [phone] Cathie Bolanos Unavailable [phone] Allergies Active Allergy Reactions Criticality Noted Date Comments Lisinopril Cough Low 01/19/2019 Medications blood-glucose meter miscIndications: Uncontrolled type 2 diabetes mellitus with hyperglycemia (HCC),Type 2 diabetes mellitus without complication, with long-term current use of insulin (HCC) Use daily for monitoring of diabetes. 1 each 12/18/19 23 Active blood glucose diagnostic (glucose blood) strip Check blood sugar daily in am e11.65 100 each 5 05/14/20 23 Active lancets misc 1 each by other route daily E11.65 100 each 3 05/14/20 23 Active empagliflozin (Jardiance) 25 mg tabletIndication s:type 2 diabetes mellitus Take 1 tablet (25 mg total) by mouth daily E11.65 90 tablet 3 06/17/19 25 Active dulaglutide (Trulicity) 1.5 mg/0.5 mL pen injectorIndicati ons:Uncontrolled type 2 diabetes mellitus with hyperglycemia (HCC) Inject 0.5 mL (1.5 mg total) under the skin once a week 6 mL 2 07/15/19 25 Active pen needle, diabetic 31 gauge x 08/14 needleIndication s:Uncontrolled type 2 diabetes mellitus with hyperglycemia (HCC) Use needle nightly to administer insulin. MAY SUBSTITUTE FOR INSURANCE PREFERRED AND MOST COST EFFECTIVE BRAND. E11.65 100 each 3 07/15/19 25 Active BASAGLAR 100 unit/mL (3 mL) pen for injection Inject 14 Units under the skin daily E11.65 15 mL 1 09/15/19 25 Active ofloxacin (FLOXIN) 0.3 % otic solution Administer 5 drops into the right ear daily 5 mL 09/15/19 25 Active escitalopram (LEXAPRO) 10 mg tabletIndication s:Recurrent major depressive disorder, in partial remission Take 1 tablet (10 mg total) by mouth daily 09/25/19 25 Active olmesartan-amLOD IPin-hcthiazid 40-5-12.5 mg tabletIndication s:Hypertension associated with diabetes (HCC) Take 1 tablet by mouth daily 90 tablet 1 11/08/19 25 Active rosuvastatin (CRESTOR) 5 mg tablet Take 1 tablet (5 mg total) by mouth daily 90 tablet 2 11/08/19 25 026 Active blood-glucose sensor (Dexcom G7 Sensor) deviceIndication s:Uncontrolled type 2 diabetes mellitus with hyperglycemia (HCC),Insulin long-term use (HCC) Dexcom G7 sensor use for 10 days to monitor blood sugar. 9 each 3 11/21/19 25 Active blood-glucose,re ceiver,cont (Dexcom G7 Bottle Feeder) miscIndications: Uncontrolled type 2 diabetes mellitus with hyperglycemia (HCC),Insulin long-term use (HCC) Dexcom G7 health information director use daily to monitor blood sugar. 1 each 11/21/19 25 Active spironolactone (ALDACTONE) 50 mg tablet Take 1 tablet (50 mg total) by mouth daily 90 tablet 12/17/19 25 026 Active gabapentin (NEURONTIN) 300 mg capsuleIndicatio ns:Uncontrolled type 2 diabetes mellitus with hyperglycemia (HCC) Take 1 capsule (300 mg total) by mouth 2 (two) times a day E11.65 180 capsule 3 05/14/20 23 025 Discontinued Active Problems Problem Noted Date Diagnosed Date Insulin long-term use 11/20/2024 Type 2 diabetes mellitus with hyperlipidemia 06/ Type 2 diabetes mellitus with diabetic microalbu minuria 11/20/2024 Obesity (BMI 30-39.9) 11/07/2024 Assessment & Plan (12/16/2024 11:18 AM CDT): Discussed the patient's BMI. The BMI is above average. BMI management plan is completed. BMI Follow-up includes: nutrition counseling, exercise counseling and education provided. Assessment & Plan (11/07/2024 3:51 PM CDT): Discussed the patient's BMI. The BMI is above average. BMI management plan is completed. BMI Follow-up includes: nutrition counseling, exercise counseling and education provided. Obesity (BMI 30.0-34.9) 08/12/2024 Assessment & Plan (12/16/2024 11:17 AM CDT): Discussed the patient's BMI. The BMI is above average. BMI management plan is completed. BMI Follow-up includes: nutrition counseling, exercise counseling and education provided. Assessment & Plan (09/14/2024 3:47 PM CDT): [...] exercise counseling and education provided. BMI 31.0-31.9,adult 07/01/2024 Assessment & Plan (11/07/2024 3:51 PM CDT): Discussed the patient's BMI. The BMI is above average. BMI management plan is completed. BMI Follow-up includes: nutrition counseling, exercise counseling and education provided. Assessment & Plan (09/14/2024 3:47 PM CDT): [...] provided. Assessment & Plan (07/15/2024 11:17 AM DIRECTOR OF DONOR RELATIONS): Discussed the patient's BMI. The BMI is above average. BMI management plan is completed. BMI Follow-up includes: nutrition counseling, exercise counseling and education provided. Assessment & Plan (07/01/2024 11:19 AM DIRECTOR OF DONOR RELATIONS): Weight/BMI is in healthy range. Continue healthy lifestyle to maintain. Annual physical exam 12/17/2022 Assessment & Plan (06/26/2024 8:40 PM DIRECTOR OF DONOR RELATIONS): Encouraged healthy lifestyle, good nutrition and exercise. [...] of continued A1c control to minimize the termite treater helper effects of diabetes. Bring accuchecks to office [...] immediately Assessment & Plan (06/26/2024 8:41 PM DIRECTOR OF DONOR RELATIONS): This is a significant, separately identifiable problem [...] Offered referral to dietitian as well as nutrition educator and she declines these also. Assessment & Plan (03/27/2023 1:02 PM CDT): Stressed importance of continued A1c control to minimize the termite treater helper effects of diabetes. Bring accuchecks to office [...] re-evaluate Assessment & Plan (07/05/2021 11:20 AM DIRECTOR OF DONOR RELATIONS): Probably multifactorial. Check labs and followup to re-evaluate Assessment & Plan (01/13/2021 10:14 PM CDT): Probably multifactorial. Check labs and followup to re-evaluate Assessment & Plan (11/11/2020 9:37 PM CDT): Probably multifactorial. Check labs and followup to re-evaluate Uncontrolled type 2 diabetes mellitus with hyperglycemia ([facility]) 10/21/2020 Assessment & Plan (08/12/2024 8:22 PM CDT): Stressed importance of continued A1c control to minimize the termite treater helper effects of diabetes. Bring accuchecks to office [...] prior. Assessment & Plan (07/23/2024 8:02 PM DIRECTOR OF DONOR RELATIONS): Stressed importance of continued A1c control to minimize the termite treater helper effects of diabetes. Bring accuchecks to office [...] HS. Assessment & Plan (07/10/2024 7:17 PM DIRECTOR OF DONOR RELATIONS): Stressed importance of continued A1c control to minimize the termite treater helper effects of diabetes. Bring accuchecks to office [...] the continuous glucose monitor as well as conservation educator and Endocrinology referral and she has declined all of those. She wants to work hard on doing medications as instructed to see where she ends up. Follow-up in 2 more weeks to continue to reinforce compliance. She is in agreement with the plan Assessment & Plan (06/26/2024 8:41 PM DIRECTOR OF DONOR RELATIONS): This is a significant, separately identifiable problem [...] Offered referral to dietitian as well as nutrition educator and she declines these also. Assessment & Plan (05/14/2023 3:41 PM DIRECTOR OF DONOR RELATIONS): This is a chronic condition which is [...] make a change willing to see the junior underwriter Assessment & Plan (12/17/2022 11:21 PM CDT): This is a significant, separately identifiable problem that was evaluated and managed on the same day as the wellness exam Stressed importance of continued A1c control to minimize the termite treater helper effects of diabetes. This includes but is [...] of continued A1c control to minimize the termite treater helper effects of diabetes. Bring accuchecks to office when instructed to do so. Check A1c about every 3-6 months. Take medication as prescribed. Get annual eye exam. Encouraged ELINA/Statin if able to tolerate. Encouraged weight control and encouraged diabetic diet and exercise. Assessment & Plan (11/11/2020 9:35 PM CDT): Stressed importance of continued A1c control to minimize the residential effects of diabetes. Bring accuchecks to office [...] of continued A1c control to minimize the residential effects of diabetes. Bring accuchecks to office [...] to. Assessment & Plan (05/20/2020 8:50 PM DIRECTOR OF DONOR RELATIONS): Probably multifactorial. Check labs and followup to re-evaluate Assessment & Plan (05/16/2019 3:54 PM DIRECTOR OF DONOR RELATIONS): Probably multifactorial. Check labs and followup to re-evaluate Assessment & Plan (02/13/2019 4:06 PM CDT): Probably multifactorial. Check labs and followup to re-evaluate Vitamin D deficiency 01/16/2019 Assessment & Plan (12/17/2022 5:29 PM CDT): Patient not currently supplementing vitamin D but was encouraged to do so. Assessment & Plan (10/21/2020 8:39 PM CDT): supplement Assessment & Plan (05/16/2019 3:54 PM DIRECTOR OF DONOR RELATIONS): supplement Assessment & Plan (02/13/2019 4:05 PM CDT): Supplement. Hypertension associated with diabetes 12/31/2018 Assessment & Plan (08/12/2024 8:21 PM CDT): Bp is stable/in acceptable range for any co-morbidities. Encouraged to limit sodium intake and exercise for weight control. Continue Tribenzor /10/10,5 Assessment & Plan (06/26/2024 8:38 PM DIRECTOR OF DONOR RELATIONS): Bp is stable/in acceptable range for any co-morbidities. Encouraged to limit sodium intake and exercise for weight control. Continue [facility] Assessment & Plan (05/14/2023 3:41 PM DIRECTOR OF DONOR RELATIONS): This is a chronic condition which is at goal of less than 140/90 Personally reviewed labs. Continue olmesartan, amlodipine, hydrochlorothiazide Encouraged to monitor weight and B/P at home Encouraged to take medications as prescribed. Assessment & Plan (03/27/2023 12:57 PM CDT): Bp is stable/in acceptable range for any co-morbidities. Encouraged to limit sodium intake and exercise for weight control. Continue [facility] Assessment & Plan (12/17/2022 11:16 PM CDT): [...] week. Assessment & Plan (07/17/2022 4:47 PM DIRECTOR OF DONOR RELATIONS): Bp is stable/in acceptable range for any co-morbidities. Encouraged to limit sodium intake and exercise for weight control. Continue [facility] Assessment & Plan (06/28/2022 7:47 PM DIRECTOR OF DONOR RELATIONS): Bp is stable/in acceptable range for any co-morbidities. Encouraged to limit sodium intake and exercise for weight control. Continue [facility] .5 Assessment & Plan (11/17/2021 10:51 PM CDT): Bp is stable/in acceptable range for any co-morbidities. Encouraged to limit sodium intake and exercise for weight control. Continue [facility] .5 Assessment & Plan (07/05/2021 11:19 AM DIRECTOR OF DONOR RELATIONS): Bp is stable/in acceptable range for any co-morbidities. Encouraged to limit sodium intake and exercise for weight control. Continue [facility] Assessment & Plan (01/13/2021 10:12 PM CDT): Bp is stable/in acceptable range for any co-morbidities. Encouraged to limit sodium intake and exercise for weight control. Continue [facility] Assessment & Plan (11/11/2020 9:36 PM CDT): Bp is stable/in acceptable range for any co-morbidities. Encouraged to limit sodium intake and exercise for weight control. Continue [facility] Assessment & Plan (10/21/2020 8:39 PM CDT): Bp is stable/in acceptable range for any co-morbidities. Encouraged to limit sodium intake and exercise for weight control. Continue Tribenzor. bp well controlled Assessment & Plan (05/20/2020 8:50 PM DIRECTOR OF DONOR RELATIONS): Bp is stable/in acceptable range for any co-morbidities. Encouraged to limit sodium intake and exercise for weight control. Assessment & Plan (09/19/2019 9:58 AM CDT): Bp is stable/in acceptable range for any co-morbidities. Encouraged to limit sodium intake and exercise for weight control. stable Assessment & Plan (05/16/2019 3:53 PM DIRECTOR OF DONOR RELATIONS): Bp is stable/in acceptable range for any co-morbidities. Encouraged to limit sodium intake and exercise for weight control. Stable with [facility] Assessment & Plan (02/13/2019 4:04 PM CDT): Bp is stable/in acceptable range for any co-morbidities. Encouraged to limit sodium intake and exercise for weight control. Control DM Happy with Tribenzor .5 Moderate episode of recurrent major depressive d isorder 12/31/2018 Assessment & Plan (06/26/2024 8:40 PM DIRECTOR OF DONOR RELATIONS): Continue Lexapro 10 as her depression symptoms [...] daily. Assessment & Plan (07/17/2022 4:47 PM DIRECTOR OF DONOR RELATIONS): Stable with Lexapro 5 mg. Assessment & Plan (06/28/2022 7:48 PM DIRECTOR OF DONOR RELATIONS): Increased stressors at home. Restart Lexapro 10 mg. Assessment & Plan (11/17/2021 10:51 PM CDT): Patient still feels like her symptoms are controlled without medication. Will continue to monitor. Assessment & Plan (10/21/2020 8:40 PM CDT): Currently stable without medication. Continue to monitor closely Assessment & Plan (05/16/2019 3:54 PM DIRECTOR OF DONOR RELATIONS): Stable with lexapro Assessment & Plan (02/13/2019 4:06 PM CDT): Stable with the Lexapro 20 mg Diabetic neuropathy associat ed with type 2 diabetes mellitus 12/31/2018 Assessment & Plan (05/14/2023 3:42 PM DIRECTOR OF DONOR RELATIONS): States neuropathy well controlled with current dose of gabapentin Assessment & Plan (03/27/2023 1:00 PM CDT): Stressed importance of continued A1c control to minimize the residential effects of diabetes. Bring accuchecks to office [...] Neurontin. Assessment & Plan (07/05/2021 11:19 AM DIRECTOR OF DONOR RELATIONS): Continue to manage diabetes tightly. Continue with the Neurontin. Assessment & Plan (01/13/2021 10:13 PM CDT): Stressed importance of continued A1c control to minimize the termite treater helper effects of diabetes. Bring accuchecks to office [...] of continued A1c control to minimize the termite treater helper effects of diabetes. Bring accuchecks to office when instructed to do so. Check A1c about every 3-6 months. Take medication as prescribed. Get annual eye exam. Encouraged ELINA/Statin if able to tolerate. Encouraged weight control and encouraged diabetic diet and exercise. Continue gabapentin Assessment & Plan (05/20/2020 8:49 PM DIRECTOR OF DONOR RELATIONS): Stressed importance of continued A1c control to minimize the residential effects of diabetes. Bring accuchecks to office [...] of continued A1c control to minimize the termite treater helper effects of diabetes. Bring accuchecks to office [...] of continued A1c control to minimize the termite treater helper effects of diabetes. Bring accuchecks to office [...] of continued A1c control to minimize the residential effects of diabetes. Bring accuchecks to office [...] obtain Assessment & Plan (05/16/2019 3:53 PM DIRECTOR OF DONOR RELATIONS): Stressed importance of continued A1c control to minimize the termite treater helper effects of diabetes. Bring accuchecks to office [...] of continued A1c control to minimize the residential effects of diabetes. Bring accuchecks to office [...] 12/31/2018 Assessment & Plan (06/26/2024 8:38 PM DIRECTOR OF DONOR RELATIONS): Continue PPI p.r.n. Assessment & Plan (03/27/2023 1:00 PM CDT): Continue PPI p.r.n. Assessment & Plan (10/21/2020 8:40 PM CDT): Stable without medication Assessment & Plan (05/16/2019 3:53 PM DIRECTOR OF DONOR RELATIONS): Currently stable without medication Assessment & Plan (02/13/2019 4:05 PM CDT): Stable without medication currently Fibromyalgia 12/31/2018 Assessment & Plan (06/28/2022 7:48 PM DIRECTOR OF DONOR RELATIONS): Continue gabapentin for pain and fibromyalgia symptoms Assessment & Plan (01/13/2021 10:14 PM CDT): Continue cymbalta Assessment & Plan (11/11/2020 9:36 PM CDT): Continue neurontin Assessment & Plan (05/16/2019 3:53 PM DIRECTOR OF DONOR RELATIONS): Stable with gabapentin Assessment & Plan (02/13/2019 4:04 PM CDT): Continue gabapentin Decreased peripheral vibratory sense 02/25/2018 Skin sensitivity 02/25/2018 Resolved Problems Problem Noted Date Diagnosed Date Resolved Date Otitis of left ear 09/24/2024 Assessment [...] I am good control Recurrent major depressive d isorder, in partial remission 09/24/2024 11/20/2024 Current moderate episode of major depressive disorder 08/12/2024 11/20/2024 Assessment & Plan (09/24/2024 9:55 PM CDT): Stable with Lexapro 10 Assessment & Plan (08/12/2024 8:25 PM CDT): Depression symptoms have stabilized with the Lexapro and better control of her sugars. BMI 30.0-30.9,adult 07/01/2024 07/23/19 Assessment & Plan (07/01/2024 11:19 AM DIRECTOR OF DONOR RELATIONS): BMI Follow-up includes: Discussed diet and exercising counseling. BMI 29.0-29.9,adult 06/17/2024 07/01/19 Assessment & Plan (06/17/2024 10:23 AM DIRECTOR OF DONOR RELATIONS): Weight/BMI is in healthy range. Continue healthy lifestyle to maintain. Class 1 obesity due to exces s calories with serious comorbidity and body mass index (BMI) of 30.0 to 30.9 in adult 03/27/2023 06/26/2024 Assessment & Plan (05/14/2023 3:43 PM DIRECTOR OF DONOR RELATIONS): This is a chronic condition which continues Weight decreased by 3 lb since 03/23 Encouraged healthy eating and exercise Assessment & Plan (05/14/2023 3:42 PM DIRECTOR OF DONOR RELATIONS): >>ASSESSMENT AND PLAN FOR OBESITY (BMI 30-39.9) [...] 12/18/19 Assessment & Plan (07/17/2022 4:47 PM DIRECTOR OF DONOR RELATIONS): Discussed the patient's BMI. The BMI is above average. BMI management plan is completed. BMI Follow-up includes: nutrition counseling, exercise counseling and education provided. Diabetes mellitus type II, controlled 07/05/2021 07/17/2022 Assessment & Plan (06/28/2022 7:49 PM DIRECTOR OF DONOR RELATIONS): Stressed importance of continued A1c control to minimize the termite treater helper effects of diabetes. Bring accuchecks to office [...] of continued A1c control to minimize the residential effects of diabetes. Bring accuchecks to office [...] week Assessment & Plan (07/05/2021 11:21 AM DIRECTOR OF DONOR RELATIONS): Stressed importance of continued A1c control to minimize the termite treater helper effects of diabetes. Bring accuchecks to office [...] 06/13/20212022 Assessment & Plan (07/17/2022 4:06 PM DIRECTOR OF DONOR RELATIONS): Discussed the patient's BMI. The BMI is above average. BMI management plan is completed. BMI Follow-up includes: nutrition counseling, exercise counseling and education provided. Assessment & Plan (06/28/2022 7:48 PM DIRECTOR OF DONOR RELATIONS): Discussed the patient's BMI. The BMI is [...] provided. Assessment & Plan (06/13/2021 3:38 PM DIRECTOR OF DONOR RELATIONS): Obesity is unchanged. Discussed the patient's BMI. The BMI is above average. BMI management plan is completed. BMI Follow-up includes: nutrition counseling, exercise counseling and education provided. BMI 31.0-31.9,adult 06/13/2021 07/17/19 23 Assessment & Plan (06/28/2022 7:48 PM DIRECTOR OF DONOR RELATIONS): Discussed the patient's BMI. The BMI is [...] provided. Assessment & Plan (06/13/2021 3:38 PM DIRECTOR OF DONOR RELATIONS): Obesity is unchanged. Discussed the patient's BMI. The BMI is above average. BMI management plan is completed. BMI Follow-up includes: nutrition counseling, exercise counseling and education provided. Colon cancer screening 01/13/202106/28 Assessment & Plan (01/13/2021 10:15 PM CDT): Refer to Dr. Alvarez to do colonoscopy after age 51yo. BMI 31.0-31.9,adult 01/10/2021 08/13/19 25 Assessment & Plan (07/15/2024 11:17 AM DIRECTOR OF DONOR RELATIONS): Discussed the patient's BMI. The BMI is [...] 12/17/2022 Assessment & Plan (06/28/2022 7:48 PM DIRECTOR OF DONOR RELATIONS): Mammogram order provided Assessment & Plan (01/13/2021 [...] 20 Assessment & Plan (05/11/2019 3:51 PM DIRECTOR OF DONOR RELATIONS): BMI Follow-up includes: Discussed diet and exercising counseling. Obesity (BMI 30-39.9) 05/11/20192019 Assessment & Plan (05/16/2019 3:53 PM DIRECTOR OF DONOR RELATIONS): BMI Follow-up includes: Discussed diet and exercising [...] appropirate screenings. Needs Tdap Long-term insulin use ([facility]) 02/07/2019 07/17/2022 Assessment & Plan (11/17/2021 [...] closely Assessment & Plan (05/16/2019 3:54 PM DIRECTOR OF DONOR RELATIONS): Continue with current regimen Assessment & Plan [...] Encounters Date Type Department Care Team Description 12/16/2024 11:30 AM CDT Office Visit [facility] Medicine [address] [place] [address] [address] [place] [phone] Cathie Bolanos PA BMI 31.0-31.9,adult (Primary Dx); Obesity (BMI 30-39.9); Lower extremity edema 12/13/[address] [facility] [address] [facility] [address] [place] [address] Cathie Bolanos PA Forms Request 11/07/2024 3:30 PM CDT Office Visit [address] [place] [phone] Cathie Bolanos PA Uncontrolled type 2 diabetes mellitus with hyperglycemia (CMS/HCC) (HCC) (Primary Dx); Type 2 diabetes mellitus with diabetic microalbuminuria, with long-term current use of insulin (HCC); Type 2 diabetes mellitus with hyperlipidemia (HCC); Hypertension associated with diabetes (HCC); Insulin long-term use (HCC); Moderate episode of recurrent major depressive disorder (HCC); BMI 31.0-31.9,adult; Obesity (BMI 30-39.9) 11/07/2024 Results Follow-Up [address] [place] [phone] Cathie Bolanos PA CBC with auto differential, Comprehensive metabolic panel, Hemoglobin A1c, Additional followed-up results: 3 10/31/[address] [place] [phone] Cathie Bolanos PA Medical Question/Miscellaneous 10/27/[address] [place] [phone] Cathie Bolanos PA Appointment Request 09/16/2024 Orders Only [address] [place] [phone] Provider, MD King from Last 3 Months Immunizations Immunization Administration [...] on file Legal Sex Female 6:08 PM DIRECTOR OF DONOR RELATIONS Gender Identity Not on file Sexual Orientation Not on file 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 Not on file Not on file Not on file Not on file Not on file Not on file Obstetrics History Last Filed Vital Signs Vital Sign Reading Time Taken Comments Blood Pressure 126/72 12/16/2024 11:15 AM CDT Pulse 89 12/16/2024 11:15 AM CDT Temperature 36.7 C (98.1 F) 12/16/2024 11:15 AM CDT Respiratory Rate 16 06/19/2022 3:18 PM DIRECTOR OF DONOR RELATIONS Oxygen Saturation 99% 12/16/2024 11:15 AM CDT Inhaled Oxygen Concentration - - Weight 80.7 kg (178 lb) 12/16/2024 11:15 AM CDT Height 160 cm (5' 3) 12/16/2024 11:15 AM CDT Body Mass Index 31.53 12/16/2024 11:15 AM CDT Plan of Treatment Health Maintenance Due Date Last Done Comments Cervical Cancer Screening 1971 Hepatitis B Screening 1989 Pneumococcal vaccine <65 (1 of 2 - PCV) 1990 Zoster Vaccine (1 of 2) 2021 Covid-19 Vaccine (3 - 2023-2 5 season) 2024 11/30/2020, 11/09/2020 Foot Exam 05/14/2024 05/14/2023, 02/07/2019 Influenza Vaccine (#1) 2025 Hemoglobin A1C 05/07/2025 11/05/2024, 06/01, 03/27/2023, Additional history exists Albumin Creatinine Ratio, Urine 06/16/2025 06/16/2024, 06/19/2023, 06/17/2022 eGFR 06/16/2025 06/16/2024, 06/01, 06/19/2023, Additional history exists Regular Well Visit/Exam 18-64 06/17/2025, 12/17/2022, 11/14/2021, Additional history exists Breast Cancer Screening-Mammogram 07/29/2025 07/29/2024, 11/22/2022, 01/19/2021, Additional history exists Dilated Eye Exam 09/09/2025 09/09/2024, , 02/28/2021, Additional history exists Lipid Panel 11/05/2025 11/05/2024, 06/01, 06/19/2023, Additional history exists Depression Screening 12/16/2025 12/16/2024, 11/07/2024, 09/14/2024, Additional history exists DTaP/Tdap/Td Vaccine (2 - Td or Tdap) 02/07/2029 02/07/2019 Colon Cancer Screening-Colonoscopy 03/11/20312020 Hepatitis C Screening Completed 04/22/2017 Procedures Procedure Name Priority Date/Time Associated Diagnosis Comments VITAMIN B12 Routine 11/05/2024 Fatigue, unspecified type TSH Routine 11/05/2024 Fatigue, unspecified type LIPID PANEL Routine 11/05/2024 Hypertension associated with diabetes (HCC) HEMOGLOBIN A1C Routine 11/05/2024 Hypertension associated with diabetes (HCC) COMPREHENSIVE METABOLIC PANEL Routine 11/05/2024 Hypertension associated with diabetes (HCC) CBC WITH AUTO DIFFERENTIAL Routine 11/05/2024 Fatigue, unspecified type DIABETES EYE EXAM Routine 09/09/2024 12:26 PM CDT MAMMOGRAPHY Routine 07/29/2024 COMPREHENSIVE METABOLIC PANEL Routine 06/16/2024 Hypertension associated with diabetes (HCC) Type 2 diabetes mellitus without complication, with long-term current use of insulin (HCC) Annual physical exam ALBUMIN CREATININE RATIO, URINE Routine 06/16/2024 Type 2 diabetes mellitus without complication, with long-term current use of insulin (HCC) Annual physical exam COLONOSCOPY Routine 03/11/2021 HEPATITIS PANEL, ACUTE Routine 7 9:57 AM DIRECTOR OF DONOR RELATIONS from Last 3 Months or Most Recently Relevant to Health Maintenance Results * (ABNORMAL) CBC with auto differential (11/05/2024) SCRIBED WBC 6.0 4.5 - 10 k/cumm EXTERNAL LAB SCRIBED RBC 4.25 4.2 - 5.4 m/cumm EXTERNAL LAB SCRIBED Hemoglobin 12.7 12.0 - 15.0 g/dL EXTERNAL LAB SCRIBED Hematocrit 39.1 37.0 - 47.0 % EXTERNAL LAB SCRIBED MCH 29.9 26 - 34 pg EXTERNAL LAB SCRIBED MCHC 32.5 32 - 36 g/dL EXTERNAL LAB SCRIBED RDW 12.5 11.5 - 14.5 g/dl EXTERNAL LAB SCRIBED Platelets 207 150 - 375 k/cumm EXTERNAL LAB SCRIBED MPV 11.4(A) 7.4 - 10.4 fL EXTERNAL LAB SCRIBED Lymphocytes 26.0 18.3 - 44.2 % EXTERNAL LAB SCRIBED Monocytes 9.7(A) 2.6 - 8.5 % EXTERNAL LAB SCRIBED Neutrophils 59.1 45.5 - 73.1 % EXTERNAL LAB SCRIBED Imm Granulocytes 0.0 0 - 0.5 % EXTERNAL LAB SCRIBED Eosinophils 4.5(A) 0 - 4.4 % EXTERNAL LAB SCRIBED Basophils 0.7 0.2 - 1.2 % EXTERNAL LAB SCRIBED Lymphocytes Abs 1.55 0.9 - 3.2 k/cumm EXTERNAL LAB SCRIBED Monocytes Abs 0.6 0.1 - 0.6 k/cumm EXTERNAL LAB SCRIBED Neutrophils Abs 3.5 1.3 - 6.7 k/cumm EXTERNAL LAB SCRIBED Imm Granulocytes Abs 0.000 0.00 - 0.031 EXTERNAL LAB SCRIBED Eosinophils Abs 0.3 0 - 0.3 k/cumm EXTERNAL LAB SCRIBED Basophils Abs 0.0 0.0 - 0.1 k/cumm EXTERNAL LAB SCRIBED MCV 92.0 80 - 100 fl EXTERNAL LAB Blood 11/05/2024 Cathie Bolanos [place] LAB BLOOD ORDERABLES Final Result Performing Organization Address [facility] Co de Phone Number EXTERNAL LAB * TSH (11/05/2024) Scribed TSH 0.69 0.47 - 4.68 mcU/mL EXTERNAL LAB Blood 11/05/2024 Cathie FLOWERS LAB BLOOD ORDERABLES Edite d Result - Final EXTERNAL LAB * (ABNORMAL) Hemoglobin A1c (11/05/2024) SCRIBED Hemoglobin A1c 11.4(A) 4.0 - 5.6 % EXTERNAL LAB Comment:0 Blood 11/05/2024 Cathie FLOWERS LAB BLOOD ORDERABLES Final Result Performing Organization Address City/[facility]/ZIP Co de Phone Number EXTERNAL LAB * Vitamin B12 (11/05/2024) Pathologist [facility] SCRIBED Vitamin B12 319.0 239 - 931 EXTERNAL LAB Blood 11/05/2024 Cathie FLOWERS LAB BLOOD ORDERABLES Final Result Performing Organization Address [facility] de Phone Number EXTERNAL LAB * (ABNORMAL) Lipid panel (11/05/2024) Pathologist [facility] SCRIBED Cholesterol, Total 202(A) 30 - 199 mg/dL EXTERNAL LAB SCRIBED Triglycerides 174(A) <=149 mg/dL EXTERNAL LAB SCRIBED HDL 65 >=40 mg/dL EXTERNAL LAB SCRIBED LDL 65 <=129 mg/dL EXTERNAL LAB Scribed Non-HDL Cholesterol 0 NONE mg/dL EXTERNAL LAB Comment:0 SCRIBED Total Cholesterol/HDL Ratio 202 NONE EXTERNAL LAB Comment:0 Blood 11/05/2024 Cathie FLOWERS LAB BLOOD ORDERABLES Final Result Performing Organization Address [facility] Co de Phone Number EXTERNAL LAB * (ABNORMAL) Comprehensive metabolic panel (11/05/2024) Pathologist [facility] SCRIBED Sodium 138 137 - 145 mmol/L EXTERNAL LAB SCRIBED Potassium 3.9 3.4 - 5.0 mmol/L EXTERNAL LAB SCRIBED Chloride 107 98 - 107 mmol/L EXTERNAL LAB SCRIBED Carbon Dioxide 25 22 - 30 mmol/L EXTERNAL LAB SCRIBED Anion Gap 6 4 - 12 mmol/L EXTERNAL LAB SCRIBED Urea Nitrogen (BUN) 27(A) 7 - 17 mg/dl EXTERNAL LAB SCRIBED Creatinine 0.86 0.7 - 1.0 mg/dl EXTERNAL LAB SCRIBED Glucose 190(A) 65 - 110 mg/dl EXTERNAL LAB SCRIBED Calcium 9.5 8.4 - 10.2 mg/dl EXTERNAL LAB SCRIBED Bilirubin 0.4 0.2 - 1.3 mg/dl EXTERNAL LAB SCRIBED Plasma Protein 7.4 6.3 - 8.2 g/dl EXTERNAL LAB SCRIBED Albumin 4.0 3.5 - 5.1 g/dl EXTERNAL LAB SCRIBED Alkaline Phosphatase 120 38 - 126 Units/L EXTERNAL LAB SCRIBED Alanine Transaminase (ALT) 30 6 - 35 Units/L EXTERNAL LAB SCRIBED Aspartate Transaminase (AST) 29 14 - 36 Units/L EXTERNAL LAB SCRIBED eGFR in >60 62 - 2 EXTERNAL LAB Blood 11/05/2024 Result [facility] Cathie FLOWERS LAB BLOOD ORDERABLES Final Result Performing Organization Address [facility] Co de Phone Number EXTERNAL LAB * (ABNORMAL) DIABETES EYE EXAM (09/09/2024 12:26 PM CDT) Impressions Genoveva Mcgarry MA - 09/09/2024 12:26 PM CDT retinopathy Result [facility] Provider HEALTH MAINTENANCE Edited Result - Final * MAMMOGRAPHY (07/29/2024) Mammography Normal 07/29/2024 Result [facility] Provider [facility] MAINTENANCE Final Result * (ABNORMAL) Albumin Creatinine Ratio, Urine (06/16/2024) SCRIBED Creatinine, Urine 293.8(A) 0 - 0 EXTERNAL LAB SCRIBED Micro ACR, Urine >1,140.0 0 - 16.7 EXTERNAL LAB SCRIBED Microalb/Creat Ratio >388 0 - 30 EXTERNAL LAB Urine 06/16/2024 Cathie FLOWERS LAB URINE ORDERABLES Final Result EXTERNAL LAB * (ABNORMAL) Comprehensive metabolic panel [...] Units/L EXTERNAL LAB SCRIBED eGFR in NonAfrican [place] Citizen >60 0.7 - 1.0 EXTERNAL LAB Blood 06/16/2024 Cathie FLOWERS LAB BLOOD ORDERABLES Edite d Result - Final EXTERNAL LAB * HM COLONOSCOPY (03/11/2021) Pathologist [facility] Scribed Colonoscopy Abnormal Narrative Cathie Bolanos PA - 03/11/2021 Dr. Alvarez --->hyperplastic polyp Repeat 10 years Historical Provider HEALTH MAINTENANCE Final Result * Hepatitis panel, acute (04/22/2017 9:57 AM DIRECTOR OF DONOR RELATIONS) Hep A IgM [facility] HISTORICAL RESULTS Comment: * Test not performed. * * No specimen received. * HepBsAg [facility]NP [facility] HISTORICAL RESULTS Comment: * Test not performed. * * No specimen received. * Hep B core IgM [facility] HISTORICAL RESULTS Comment: * Test not performed. * * No specimen received. * [facility] Comment: * Test not performed. * * No specimen received. * 04/22/2017 9:57 AM DIRECTOR OF DONOR RELATIONS 04/27/2017 3:20 PM DIRECTOR OF DONOR RELATIONS Narrative [facility] HISTORICAL RESULTS - 04/27/2017 3:01 PM DIRECTOR OF DONOR RELATIONS 0 0 PERFORMING LAB: [facility] [id number] [id number] Saul Urrutia D.O., MPH us Historical Provider LAB MICROBIOLOGY - GENERA L ORDERABLES Final Result [facility] HISTORICAL RESULTS from Last 3 Months or Most Recently Relevant to Health Maintenance Insurance [facility] Care Teams Financial Report Service Sales Agent Relationship Specialty Start Date End Date Cathie Bolanos PA [address] [place] [address] PCP - General Internal Medicine 11/10/18 Cathie Bolanos PA [address] [place] [address] Internal Medicine 11/10/18
--- OUTSIDE RECORDS SUMMARY | 2024-12-16 12:33 | XMS_ITS | Encounter Summary ---
Author Organization [facility] Healthcare Address [address] [place] [address] Care Team Providers Care Gas Plant Operator Name Role Phone Cathie Bolanos Primary Care Provider [phone] Cathie Bolanos Unavailable [phone] Encounter Details Date Type Department Care Team (Latest Contact Info) Description 11/07/2024 Results Follow-Up [facility] Medical Group Family Medicine [address] [place] [address] Cathie Bolanos PA [address] [place] [address] CBC with auto differential, Comprehensive metabolic panel, Hemoglobin A1c, Additional followed-up results: 3 Social History Tobacco Use Types Packs/Day Years Used Date Smoking Tobacco: Never Smokeless Tobacco: Never Alcohol Use Standard Drinks/Week Comments Yes 0 (1 standard drink = 0.6 oz pur e alcohol) 2/week AUDIT-C Answer Date Recorded Q1: How often do you have a drink containing alc ohol? Monthly or less 11/07/2024 Q2: How many drinks containi ng alcohol do you have on a typical day when you are drinking? 1 or 2 11/07/2024 Q3: How often do you have si x or more drinks on one occasion? 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 Monthly or less 11/07/2024 3:45 PM Lizett Arceo MA Q2: How many drinks containing alcohol do you have on a typical day when you are drinking? 1 or 2 11/07/2024 3:45 PM Genoveva Arceo M A Q3: How often do you have six or more drinks on one occasion? Never 11/07/2024 3:45 PM Genoveva Arceo M A documented as of this encounter Plan of Treatment Not on file documented as of this encounter Visit Diagnoses Not on filedocumented in this encounter Care Teams Gas Plant Operator Relationship Specialty Start Date End Date Cathie Bolanos PA [address] [place] [address] PCP - General Internal Medicine 11/10/18 Cathie Bolanos PA [address] [place] [address] Internal Medicine 11/10/18 documented as of this encounter
--- OUTSIDE RECORDS SUMMARY | 2024-12-16 12:33 | XMS_ITS | Referral Summary ---
Author Organization [facility] [facility] Address [address] [place] [address] Care Team Providers Care Topper Press Operator Automatic Name Role Phone Cathie Bolanos Primary Care Provider [phone] Cathie Bolanos Unavailable [phone] Encounters Date Type Department Care Team Description 12/16/2024 11:30 AM CDT Office Visit [facility] Medicine [address] [place] [address] [place] [phone] Cathie Bolanos PA BMI 31.0-31.9,adult (Primary Dx); Obesity (BMI 30-39.9); Lower extremity edema 12/13/2024 Telephone [facility] Medicine [address] [place] [address] [place] [phone] Cathie Bolanos PA Forms Request 11/07/2024 Results Follow-Up [address] [place] [phone] Cathie Bolanos PA CBC with auto differential, Comprehensive metabolic panel, Hemoglobin A1c, Additional followed-up results: 3 11/07/2024 3:30 PM CDT Office Visit [address] [place] [address] Cathie Bolanos PA Uncontrolled type 2 diabetes mellitus with hyperglycemia (CMS/HCC) (HCC) (Primary Dx); Type 2 diabetes mellitus with diabetic microalbuminuria, with long-term current use of insulin (HCC); Type 2 diabetes mellitus with hyperlipidemia (HCC); Hypertension associated with diabetes (HCC); Insulin long-term use (HCC); Moderate episode of recurrent major depressive disorder (HCC); BMI 31.0-31.9,adult; Obesity (BMI 30-39.9) 10/31/[address] [place] [phone] Cathie Bolanos PA Medical Question/Miscellaneous 10/27/[address] [place] [phone] Cathie Bolanos PA Appointment Request 09/16/2024 Orders Only [address] [place] [phone] Provider, MD King from Last 3 Months Allergies Active Allergy [...] 11/21/19 25 Active blood-glucose,re ceiver,cont (Dexcom G7 Blood Bank Assistant) miscIndications: Uncontrolled type 2 diabetes mellitus with hyperglycemia (HCC),Insulin long-term use (HCC) Dexcom G7 sergeant at arms use daily to monitor blood sugar. 1 [...] 11/20/2024 Type 2 diabetes mellitus with hyperlipidemia Type 2 diabetes mellitus with diabetic microalbu [...] provided. Assessment & Plan (07/15/2024 11:17 AM PRINTING MECHANIST): Discussed the patient's BMI. The BMI is above average. BMI management plan is completed. BMI Follow-up includes: nutrition counseling, exercise counseling and education provided. Assessment & Plan (07/01/2024 11:19 AM PRINTING MECHANIST): Weight/BMI is in healthy range. Continue healthy lifestyle to maintain. Annual physical exam 12/17/2022 Assessment & Plan (06/26/2024 8:40 PM PRINTING MECHANIST): Encouraged healthy lifestyle, good nutrition and exercise. [...] of continued A1c control to minimize the lobsterman effects of diabetes. Bring accuchecks to office [...] immediately Assessment & Plan (06/26/2024 8:41 PM PRINTING MECHANIST): This is a significant, separately identifiable problem [...] Offered referral to dietitian as well as clinical nurse educator and she declines these also. Assessment & Plan (03/27/2023 1:02 PM CDT): Stressed importance of continued A1c control to minimize the fci effects of diabetes. Bring accuchecks to office [...] re-evaluate Assessment & Plan (07/05/2021 11:20 AM PRINTING MECHANIST): Probably multifactorial. Check labs and followup to re-evaluate Assessment & Plan (01/13/2021 10:14 PM CDT): Probably multifactorial. Check labs and followup to re-evaluate Assessment & Plan (11/11/2020 9:37 PM CDT): Probably multifactorial. Check labs and followup to re-evaluate Uncontrolled type 2 diabetes mellitus with hyperglycemia ([facility]) 10/21/2020 Assessment & Plan (08/12/2024 8:22 PM CDT): Stressed importance of continued A1c control to minimize the fci effects of diabetes. Bring accuchecks to office [...] prior. Assessment & Plan (07/23/2024 8:02 PM PRINTING MECHANIST): Stressed importance of continued A1c control to minimize the lobsterman effects of diabetes. Bring accuchecks to office [...] HS. Assessment & Plan (07/10/2024 7:17 PM PRINTING MECHANIST): Stressed importance of continued A1c control to minimize the lobsterman effects of diabetes. Bring accuchecks to office [...] the continuous glucose monitor as well as coding educator and Endocrinology referral and she has declined all of those. She wants to work hard on doing medications as instructed to see where she ends up. Follow-up in 2 more weeks to continue to reinforce compliance. She is in agreement with the plan Assessment & Plan (06/26/2024 8:41 PM PRINTING MECHANIST): This is a significant, separately identifiable problem [...] Offered referral to dietitian as well as clinical nurse educator and she declines these also. Assessment & Plan (05/14/2023 3:41 PM PRINTING MECHANIST): This is a chronic condition which is [...] make a change willing to see the research and development scientist Assessment & Plan (12/17/2022 11:21 PM CDT): This is a significant, separately identifiable problem that was evaluated and managed on the same day as the wellness exam Stressed importance of continued A1c control to minimize the lobsterman effects of diabetes. This includes but is [...] of continued A1c control to minimize the lobsterman effects of diabetes. Bring accuchecks to office when instructed to do so. Check A1c about every 3-6 months. Take medication as prescribed. Get annual eye exam. Encouraged ELINA/Statin if able to tolerate. Encouraged weight control and encouraged diabetic diet and exercise. Assessment & Plan (11/11/2020 9:35 PM CDT): Stressed importance of continued A1c control to minimize the fci effects of diabetes. Bring accuchecks to office [...] of continued A1c control to minimize the fci effects of diabetes. Bring accuchecks to office [...] to. Assessment & Plan (05/20/2020 8:50 PM PRINTING MECHANIST): Probably multifactorial. Check labs and followup to re-evaluate Assessment & Plan (05/16/2019 3:54 PM PRINTING MECHANIST): Probably multifactorial. Check labs and followup to re-evaluate Assessment & Plan (02/13/2019 4:06 PM CDT): Probably multifactorial. Check labs and followup to re-evaluate Vitamin D deficiency 01/16/2019 Assessment & Plan (12/17/2022 5:29 PM CDT): Patient not currently supplementing vitamin D but was encouraged to do so. Assessment & Plan (10/21/2020 8:39 PM CDT): supplement Assessment & Plan (05/16/2019 3:54 PM PRINTING MECHANIST): supplement Assessment & Plan (02/13/2019 4:05 PM CDT): Supplement. Hypertension associated with diabetes 12/31/2018 Assessment & Plan (08/12/2024 8:21 PM CDT): Bp is stable/in acceptable range for any co-morbidities. Encouraged to limit sodium intake and exercise for weight control. Continue Tribenzor ,5 Assessment & Plan (06/26/2024 8:38 PM PRINTING MECHANIST): Bp is stable/in acceptable range for any co-morbidities. Encouraged to limit sodium intake and exercise for weight control. Continue [facility] Assessment & Plan (05/14/2023 3:41 PM PRINTING MECHANIST): This is a chronic condition which is at goal of less than 140/90 Personally reviewed labs. Continue olmesartan, amlodipine, hydrochlorothiazide Encouraged to monitor weight and B/P at home Encouraged to take medications as prescribed. Assessment & Plan (03/27/2023 12:57 PM CDT): Bp is stable/in acceptable range for any co-morbidities. Encouraged to limit sodium intake and exercise for weight control. Continue [facility] Assessment & Plan (12/17/2022 11:16 PM CDT): [...] week. Assessment & Plan (07/17/2022 4:47 PM PRINTING MECHANIST): Bp is stable/in acceptable range for any co-morbidities. Encouraged to limit sodium intake and exercise for weight control. Continue [facility] Assessment & Plan (06/28/2022 7:47 PM PRINTING MECHANIST): Bp is stable/in acceptable range for any co-morbidities. Encouraged to limit sodium intake and exercise for weight control. Continue [facility] .5 Assessment & Plan (11/17/2021 10:51 PM CDT): Bp is stable/in acceptable range for any co-morbidities. Encouraged to limit sodium intake and exercise for weight control. Continue [facility] .5 Assessment & Plan (07/05/2021 11:19 AM PRINTING MECHANIST): Bp is stable/in acceptable range for any co-morbidities. Encouraged to limit sodium intake and exercise for weight control. Continue Tribenzor Assessment & Plan (01/13/2021 10:12 PM CDT): Bp is stable/in acceptable range for any co-morbidities. Encouraged to limit sodium intake and exercise for weight control. Continue Tribenzor Assessment & Plan (11/11/2020 9:36 PM CDT): Bp is stable/in acceptable range for any co-morbidities. Encouraged to limit sodium intake and exercise for weight control. Continue Tribenzor Assessment & Plan (10/21/2020 8:39 PM CDT): Bp is stable/in acceptable range for any co-morbidities. Encouraged to limit sodium intake and exercise for weight control. Continue Tribenzor. bp well controlled Assessment & Plan (05/20/2020 8:50 PM PRINTING MECHANIST): Bp is stable/in acceptable range for any co-morbidities. Encouraged to limit sodium intake and exercise for weight control. Assessment & Plan (09/19/2019 9:58 AM CDT): Bp is stable/in acceptable range for any co-morbidities. Encouraged to limit sodium intake and exercise for weight control. stable Assessment & Plan (05/16/2019 3:53 PM PRINTING MECHANIST): Bp is stable/in acceptable range for any co-morbidities. Encouraged to limit sodium intake and exercise for weight control. [facility] & Plan (02/13/2019 4:04 PM CDT): Bp is stable/in acceptable range for any co-morbidities. Encouraged to limit sodium intake and exercise for weight control. Control DM Happy with Tribenzor .5 Moderate episode of recurrent major depressive d isorder 12/31/2018 Assessment & Plan (06/26/2024 8:40 PM PRINTING MECHANIST): Continue Lexapro 10 as her depression symptoms [...] daily. Assessment & Plan (07/17/2022 4:47 PM PRINTING MECHANIST): Stable with Lexapro 5 mg. Assessment & Plan (06/28/2022 7:48 PM PRINTING MECHANIST): Increased stressors at home. Restart Lexapro 10 mg. Assessment & Plan (11/17/2021 10:51 PM CDT): Patient still feels like her symptoms are controlled without medication. Will continue to monitor. Assessment & Plan (10/21/2020 8:40 PM CDT): Currently stable without medication. Continue to monitor closely Assessment & Plan (05/16/2019 3:54 PM PRINTING MECHANIST): Stable with lexapro Assessment & Plan (02/13/2019 4:06 PM CDT): Stable with the Lexapro 20 mg Diabetic neuropathy associat ed with type 2 diabetes mellitus 12/31/2018 Assessment & Plan (05/14/2023 3:42 PM PRINTING MECHANIST): States neuropathy well controlled with current dose of gabapentin Assessment & Plan (03/27/2023 1:00 PM CDT): Stressed importance of continued A1c control to minimize the fci effects of diabetes. Bring accuchecks to office [...] Neurontin. Assessment & Plan (07/05/2021 11:19 AM PRINTING MECHANIST): Continue to manage diabetes tightly. Continue with the Neurontin. Assessment & Plan (01/13/2021 10:13 PM CDT): Stressed importance of continued A1c control to minimize the fci effects of diabetes. Bring accuchecks to office [...] of continued A1c control to minimize the lobsterman effects of diabetes. Bring accuchecks to office when instructed to do so. Check A1c about every 3-6 months. Take medication as prescribed. Get annual eye exam. Encouraged ELINA/Statin if able to tolerate. Encouraged weight control and encouraged diabetic diet and exercise. Continue gabapentin Assessment & Plan (05/20/2020 8:49 PM PRINTING MECHANIST): Stressed importance of continued A1c control to minimize the fci effects of diabetes. Bring accuchecks to office [...] of continued A1c control to minimize the lobsterman effects of diabetes. Bring accuchecks to office [...] of continued A1c control to minimize the fci effects of diabetes. Bring accuchecks to office [...] of continued A1c control to minimize the fci effects of diabetes. Bring accuchecks to office [...] obtain Assessment & Plan (05/16/2019 3:53 PM PRINTING MECHANIST): Stressed importance of continued A1c control to minimize the fci effects of diabetes. Bring accuchecks to office [...] of continued A1c control to minimize the lobsterman effects of diabetes. Bring accuchecks to office [...] 12/31/2018 Assessment & Plan (06/26/2024 8:38 PM PRINTING MECHANIST): Continue PPI p.r.n. Assessment & Plan (03/27/2023 1:00 PM CDT): Continue PPI p.r.n. Assessment & Plan (10/21/2020 8:40 PM CDT): Stable without medication Assessment & Plan (05/16/2019 3:53 PM PRINTING MECHANIST): Currently stable without medication Assessment & Plan (02/13/2019 4:05 PM CDT): Stable without medication currently Fibromyalgia 12/31/2018 Assessment & Plan (06/28/2022 7:48 PM PRINTING MECHANIST): Continue gabapentin for pain and fibromyalgia symptoms Assessment & Plan (01/13/2021 10:14 PM CDT): Continue cymbalta Assessment & Plan (11/11/2020 9:36 PM CDT): Continue neurontin Assessment & Plan (05/16/2019 3:53 PM PRINTING MECHANIST): Stable with gabapentin Assessment & Plan (02/13/2019 [...] 07/23/19 Assessment & Plan (07/01/2024 11:19 AM PRINTING MECHANIST): BMI Follow-up includes: Discussed diet and exercising counseling. BMI 29.0-29.9,adult 06/17/2024 07/01/19 Assessment & Plan (06/17/2024 10:23 AM PRINTING MECHANIST): Weight/BMI is in healthy range. Continue healthy lifestyle to maintain. Class 1 obesity due to exces s calories with serious comorbidity and body mass index (BMI) of 30.0 to 30.9 in adult 03/27/2023 06/26/2024 Assessment & Plan (05/14/2023 3:43 PM PRINTING MECHANIST): This is a chronic condition which continues Weight decreased by 3 lb since 03/23 Encouraged healthy eating and exercise Assessment & Plan (05/14/2023 3:42 PM PRINTING MECHANIST): >>ASSESSMENT AND PLAN FOR OBESITY (BMI 30-39.9) [...] 12/18/19 Assessment & Plan (07/17/2022 4:47 PM PRINTING MECHANIST): Discussed the patient's BMI. The BMI is above average. BMI management plan is completed. BMI Follow-up includes: nutrition counseling, exercise counseling and education provided. Diabetes mellitus type II, controlled 07/05/2021 07/17/2022 Assessment & Plan (06/28/2022 7:49 PM PRINTING MECHANIST): Stressed importance of continued A1c control to minimize the fci effects of diabetes. Bring accuchecks to office [...] of continued A1c control to minimize the lobsterman effects of diabetes. Bring accuchecks to office [...] week Assessment & Plan (07/05/2021 11:21 AM PRINTING MECHANIST): Stressed importance of continued A1c control to minimize the lobsterman effects of diabetes. Bring accuchecks to office [...] 06/13/20212022 Assessment & Plan (07/17/2022 4:06 PM PRINTING MECHANIST): Discussed the patient's BMI. The BMI is above average. BMI management plan is completed. BMI Follow-up includes: nutrition counseling, exercise counseling and education provided. Assessment & Plan (06/28/2022 7:48 PM PRINTING MECHANIST): Discussed the patient's BMI. The BMI is [...] provided. Assessment & Plan (06/13/2021 3:38 PM PRINTING MECHANIST): Obesity is unchanged. Discussed the patient's BMI. The BMI is above average. BMI management plan is completed. BMI Follow-up includes: nutrition counseling, exercise counseling and education provided. BMI 31.0-31.9,adult 06/13/2021 07/17/19 23 Assessment & Plan (06/28/2022 7:48 PM PRINTING MECHANIST): Discussed the patient's BMI. The BMI is [...] provided. Assessment & Plan (06/13/2021 3:38 PM PRINTING MECHANIST): Obesity is unchanged. Discussed the patient's BMI. The BMI is above average. BMI management plan is completed. BMI Follow-up includes: nutrition counseling, exercise counseling and education provided. Colon cancer screening 01/13/202106/28 Assessment & Plan (01/13/2021 10:15 PM CDT): Refer to Dr. Alvarez to do colonoscopy after age 50yo. BMI 31.0-31.9,adult 01/10/2021 08/13/19 25 Assessment & Plan (07/15/2024 11:17 AM PRINTING MECHANIST): Discussed the patient's BMI. The BMI is [...] and education provided. Annual physical exam 10/21/2020 Assessment & Plan (11/17/2021 10:52 PM CDT): [...] 12/17/2022 Assessment & Plan (06/28/2022 7:48 PM PRINTING MECHANIST): Mammogram order provided Assessment & Plan (01/13/2021 [...] and education provided. BMI 30.0-30.9,adult 10/04/2020 11/02/19 Assessment & Plan (10/04/2020 3:09 PM CDT): [...] 20 Assessment & Plan (05/11/2019 3:51 PM PRINTING MECHANIST): BMI Follow-up includes: Discussed diet and exercising counseling. Obesity (BMI 30-39.9) 05/11/20192019 Assessment & Plan (05/16/2019 3:53 PM PRINTING MECHANIST): BMI Follow-up includes: Discussed diet and exercising [...] appropirate screenings. 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 Not on file Not on file Not on file Not on file Not on file Not on file Not on file Last Filed Vital Signs Vital Sign Reading Time Taken Comments Blood Pressure 126/72 12/16/2024 11:15 AM CDT Pulse 89 12/16/2024 11:15 AM CDT Temperature 36.7 C (98.1 F) 12/16/2024 11:15 AM CDT Respiratory Rate 16 06/19/2022 3:18 PM PRINTING MECHANIST Oxygen Saturation 99% 12/16/2024 11:15 AM CDT Inhaled Oxygen Concentration - - Weight 80.7 kg (178 lb) 12/16/2024 11:15 AM CDT Height 160 cm (5' 3) 12/16/2024 11:15 AM CDT Body Mass Index 31.53 12/16/2024 11:15 AM CDT Plan of Treatment Not on file [...] HEPATITIS PANEL, ACUTE Routine 7 9:57 AM PRINTING MECHANIST from Last 3 Months or Most Recently [...] 100 fl EXTERNAL LAB Blood 11/05/2024 Cathie FLOWERS LAB BLOOD ORDERABLES Final Result Performing Organization Address [facility] de Phone Number EXTERNAL LAB * TSH [...] [facility] de Phone Number EXTERNAL LAB * Vitamin B12 (11/05/2024) Pathologist [facility] SCRIBED Vitamin B12 319.0 239 - 931 EXTERNAL LAB Blood 11/05/2024 Cathie FLOWERS LAB BLOOD ORDERABLES Final Result Performing Organization Address [facility] de Phone Number EXTERNAL LAB * (ABNORMAL) Lipid panel (11/05/2024) Pathologist [facility] SCRIBED Cholesterol, Total 202(A) 30 - 199 [...] [facility] de Phone Number EXTERNAL LAB * (ABNORMAL) Comprehensive metabolic panel (11/05/2024) SCRIBED Sodium 138 137 - 145 mmol/L [...] 62 - 2 EXTERNAL LAB Blood 11/05/2024 Cathie FLOWERS LAB BLOOD ORDERABLES Final Result Performing Organization Address City/[facility]/ZIP Co de Phone Number EXTERNAL LAB * (ABNORMAL) DIABETES EYE EXAM (09/09/2024 12:26 PM CDT) Impressions Genoveva Mcgarry MA - 09/09/2024 12:26 PM CDT retinopathy Historical Provider HEALTH MAINTENANCE Edited Result - Final * MAMMOGRAPHY (07/29/2024) Pathologist [facility] Mammography Normal 07/29/2024 Historical Provider HEALTH MAINTENANCE Final Result * (ABNORMAL) Albumin [...] * Hepatitis panel, acute (04/22/2017 9:57 AM PRINTING MECHANIST) Hep A IgM TNP [facility] HISTORICAL RESULTS Comment: * Test not performed. * * No specimen received. * HepBsAg [facility] HISTORICAL RESULTS Comment: * Test not performed. * * No specimen received. * Hep B core IgM TNP [facility] HISTORICAL RESULTS Comment: * Test not performed. * * No specimen received. * Hep C Ab [facility] HISTORICAL RESULTS Comment: * Test not performed. * * No specimen received. * 04/22/2017 9:57 AM PRINTING MECHANIST 04/27/2017 3:20 PM PRINTING MECHANIST Narrative [facility] HISTORICAL RESULTS - 04/27/2017 3:01 PM PRINTING MECHANIST 0 0 PERFORMING LAB: [facility] [address] [address] [id number] Saul Urrutia D.O., MPH Historical Provider LAB MICROBIOLOGY - GENERA L ORDERABLES Final Result [facility] HISTORICAL RESULTS from Last 3 Months or Most Recently Relevant to Health Maintenance Insurance [facility] Care Teams Topper Press Operator Automatic Relationship Specialty Start Date End Date Cathie Bolanos PA [address] [place] [address] PCP - General Internal Medicine 11/10/18 Cathie Bolanos PA [address] [place] [address] Internal Medicine 11/10/18
--- OUTSIDE RECORDS SUMMARY | 2024-12-16 12:33 | XMS_ITS | Encounter Summary ---
Author Organization [facility] Care Team Providers Care Nailer Hand Name Role Phone Cathie Bolanos Primary Care Provider [phone] Cathie Bolanos Primary Care Provider [phone] Cathie Bolanos Unavailable [phone] Encounter Details Date Type Department Care Team (Latest Contact Info) Description 07/31/2015 Orders Only [facility] Provider, MD King [address] [place] [id number] Social History Tobacco Use Types Packs/Day Years Used Date Smoking Tobacco: Never Assessed Comments Unknown Sex and Gender Information Value Date Recorded Sex Assigned at Not on file Legal Sex Female 6:08 PM SECURITY SYSTEMS ADMINISTRATOR Gender Identity Not on file Sexual Orientation [...] on filedocumented in this encounter Care Teams Nailer Hand Relationship Specialty Start Date End Date Cathie Bolanos PA [address] [place] [address] PCP - General Internal Medicine 01/13/18 11/09/18 Cathie Bolanos PA [address] [place] [address] PCP - General Internal Medicine 11/10/18 Cathie Bolanos PA [address] [place] [address] Internal Medicine 11/10/18 documented as of this encounter
[2024-12-16 13:10] LABS: Alanine Aminotransferase 24 U/L (6-35); Albumin Level 4.0 g/dL (3.5-5.1); Alkaline Phosphatase 124 U/L (38-126); Aspartate Amino Transferase 29 U/L (14-36); Bilirubin,Total 0.3 mg/dL (0.2-1.3); Blood Urea Nitrogen 23 mg/dL (7-17); Calcium 9.7 mg/dL (8.4-10.2); Carbon Dioxide 25 mmol/L (22-30); Estimated Glomerular Filt Rate > 60; Glucose 279 mg/dL (65-110); Magnesium 2.3 mg/dL (1.6-2.3); Total Protein 7.6 g/dL (6.3-8.2); Uric Acid 7.7 mg/dL (2.5-7.5)
[2024-12-16 13:18] LABS: Anion Gap 6 mmol/L (4-12); Chloride 103 mmol/L (98-107); NT Pro B Type Natriuretic Pept 40 pg/mL (19.9-100); Potassium 4.2 mmol/L (3.4-5.0); Sodium 134 mmol/L (137-145)
== END 2024-12-16 12:30 | disposition home or self-care (01) ==
LOC: ANHLAB 12:32
PROVIDERS: PCP Physician Assistant; Visit Provider Physician Assistant
DX: R60.0 Localized edema (principal)
CPT/HCPCS: 36415; 80053; 83735; 83880; 84550

== ENCOUNTER 2025-01-11 08:59 | Outpatient (CLI) | payer BC, SELFPAY ==
--- NOTE | 2025-01-11 | ECHO_ITS ---
Patient Info Name: Justin Rodrigues Age: 54 years : 1970 Gender: Female Ht: 63 in Wt: 170 lbs BSA: 1.88 m2 HR: 84 bpm BP: 153 / 105 mmHg Heart Rhythm: Sinus Rhythm Technical Quality: Good Exam Date: 01/11/2025 9:20 AM Patient Status: O Admit Date: 01/11/2025 Exam Type: CA echo doppler color flow Complete two-dimensional, color flow and Doppler transthoracic echocardiogram is performed. Director Of Alumni Relations: Afshan Resendiz Attending Provider: Cathie Bolanos Summary 1. Complete two-dimensional, color flow and Doppler transthoracic echocardiogram is performed. 2. Left ventricular chamber dimension is normal. 3. Left ventricular systolic function is normal, estimated at 65-70. 4. There is mildly increased left ventricular wall thickness. 5. The left ventricular diastolic function is normal. 6. Left atrial chamber dimension is mildly enlarged. 7. There is mild tricuspid valve regurgitation. 8. No pulmonary hypertension, estimated pulmonary arterial systolic pressure is 28 mmHg. Left Ventricle Left ventricular chamber dimension is normal. Left ventricular systolic function is normal, estimated at 65-70. There is mildly increased left ventricular wall thickness. The left ventricular diastolic function is normal. Right Ventricle Right ventricular chamber dimension is normal. Right ventricular systolic function is normal. Left Atria Left atrial chamber dimension is mildly enlarged. Right Atria Right atrial chamber dimension is normal. Atrial Septum Intact interatrial septum visualized by color flow imaging. Aortic Valve The aortic valve is trileaflet. There is no aortic valve sclerosis. There is no aortic valve stenosis. There is trace aortic valve regurgitation. Pulmonic Valve The pulmonic valve is normal. There is no pulmonic valve stenosis. There is trace pulmonic regurgitation. Mitral Valve The mitral valve has normal leaflets. There is no mitral valve stenosis. There is trace mitral valve regurgitation. Tricuspid Valve The tricuspid valve leaflets are normal. There is no significant tricuspid valve stenosis. There is mild tricuspid valve regurgitation. No pulmonary hypertension, estimated pulmonary arterial systolic pressure is 28 mmHg. Pericardium/Pleural The pericardium appears normal. There is no pericardial effusion. Inferior Vena Cava Normal inferior vena cava with >50% collapse upon inspiration consistent with normal right atrial pressure, 5 mmHg. Aorta The aortic root size at the sinus of Valsalva is normal. The prox ascending aorta size is normal. Left Ventricular Outflow Tract Name Value Normal LVOT 2D LVOT Diameter 2.0 cm LVOT Doppler LVOT Peak Velocity 86 cm/s LVOT Peak Gradient 3 mmHg LVOT Mean Gradient 2 mmHg LVOT VTI 19 cm LVOT Stroke Volume 62 ml LVOT CO 5.2 l/min LVOT CI 2.8 l/min/m2 Pulmonic Valve Name Value Normal RVOT Doppler RVOT Peak Velocity 75 cm/s RVOT Peak Gradient 2 mmHg PV Doppler PV Peak Velocity 92 cm/s PV Peak Gradient 3 mmHg Mitral Valve Name Value Normal MV Diastolic Function MV E Peak Velocity 69 cm/s MV A Peak Velocity 63 cm/s MV E/A 1.1 MV Decel Time (PW) 193 ms MV Annular TDI MV E/e' (Septal) 10.1 MV E/e' (Lateral) 7.3 MV E/e' (Average) 8.7 Tricuspid Valve Name Value Normal Estimated PAP/RSVP RA Pressure 5 mmHg <=5 PA Systolic Pressure 28 mmHg <36 Aortic Valve Name Value Normal AV Doppler AV Peak Velocity 117 cm/s AV Peak Gradient 6 mmHg AV Area (Cont Eq Adis) 2.4 cm2 AV DI (Adis) 0.73 AV Regurgitation 2D LVOT Area 3.3 cm2 Ventricles Name Value Normal LV Dimensions 2D/MM IVS Diastolic Thickness (2D) 1.0 cm 0.6-1.0 LVID Diastole (2D) 4.0 cm 3.8-5.2 LVIW Diastolic Thickness (2D) 1.1 cm 0.6-0.9 LVID Systole (2D) 2.5 cm 2.2-3.5 LVOT Diameter 2.0 cm LV Mass (2D Cubed) 143.59 g 67.00-162.00 LV Mass Index (2D Cubed) 76 g/m2 43-95 Relative Wall Thickness (2D) 0.56 <=0.42 LV Fractional Shortening/Ejection Fraction 2D/MM LV Fractional Shortening (2D) 38 % 27-45 LV EF (2D Teichholz) 68 % LV Diastolic Volume (4C MOD) 115 ml LV EF (4C MOD) 51 % LV Diastolic Volume (2C MOD) 94 ml LV EF (2C MOD) 70 % LV Diastolic Volume (BP MOD) 110 ml 46-106 LV Diastolic Volume Index (BP MOD) 59 ml/m2 29-61 LV Systolic Volume (BP MOD) 42 ml 14-42 LV Systolic Volume Index (BP MOD) 22 ml/m2 8-24 LV EF (BP MOD) 62 % 54-74 LV Diastolic Length (4C) 7.9 cm LV Systolic Length (4C) 7.0 cm LV Stroke Volume (4C MOD) 58 ml Atria Name Value Normal LA Dimensions LA Volume (4C A-L) 33 ml LA Volume (BP A-L) 41 ml RA Dimensions RA Systolic Major Delavan Length (4C) 4.4 cm 2.2-2.8 RA Area (4C) 8.7 cm2 <=18.0 Report Signatures
--- OUTSIDE RECORDS SUMMARY | 2025-01-11 09:08 | XMS_ITS | Continuity of Care Document ---
Author Organization [facility] Address [address] [address] [place] [address] Phone Care Team Providers Care Supply And Distribution Manager Name Role Phone Demetri Goodson MD, MD [...] Providers Copied on Encounter [facility], [address], [place], [place], [id number], [place] tel:[phone] [facility] No Information 5 Hamzah Mosquera. [address], [address], [place], [place], [id number] , [place]. tel:[phone] Referring Provider: Demetri Mederos, [address], [place], [address] . tel:[phone] [facility], [address] [place] [address], [id number], tel:[phone] [address] [place] [address] No Information 5 Hamzah Mosquera. [address], [address], [place], [place], [id number] , [place]. tel:[phone] Referring Provider: Demetri Mederos, [address], [place], [address] . tel:[phone] [facility], [address] [place] [address], [id number], tel:[phone] [facility] Information 5 Hamzah Mosquera. [address], [address], [place], [place], [id number] , [place]. tel:[phone] Referring Provider: Demetri Mederos, [address], [place], [address] . tel:[phone] [facility], [address] [place] [address], [id number], tel:[phone] [address] [place] [address] No Information 4 Hamzah Mosquera. [address], [address], [place], [place], [address] , [place]. [phone] Referring Provider: Demetri Goodson MD P, [address], [place], [address] . tel:[phone] [facility], [address] [place] [address], [id number], [place] tel:[phone] [address] [place] [address] No Information 4 Hamzah Mosquera. [address], [address], [place], [place], [id number] , [place]. [phone] Referring Provider: Demetri Gira MD P, [address], [place], [address] . tel:[phone] OFFICE/OUTPA TIENT VISIT, [facility], [address], [place], [place], [id number], tel:[phone] [facility] No Information 4 Hamzah Mosquera. [address], [address], [place], [place], [id number] , [place]. tel:[phone] Referring Provider: Demetri Goodson MD P, [address], [place], [address] . tel:[phone] Family History Family Member Type Diagnosis Age At Onset No Information Payers Payer name Insurance type Covered constitution party ID Erasmo decker(s) [facility] [id number] Social History Type Description Quantity Date Captured [...]
--- OUTSIDE RECORDS SUMMARY | 2025-01-11 09:08 | XMS_ITS | Encounter Summary ---
Author Organization [facility] Care Team Providers Care Cardboard Inserter Name Role Phone Cathie Bolanos Primary Care Provider [phone] Cathie Bolanos Primary Care Provider [phone] Cathie Bolanos Unavailable [phone] Encounter Details Date Type Department Care Team (Latest Contact Info) Description 08/08/2017 Orders Only [facility] Provider, MD King [address] [place] [address] Social History Tobacco Use Types Packs/Day Years Used Date Smoking Tobacco: Never Assessed Comments Unknown Sex and Gender Information Value Date Recorded Sex Assigned at Not on file Legal Sex Female 6:08 PM [employer] Gender Identity Not on file Sexual Orientation [...] on filedocumented in this encounter Care Teams Cardboard Inserter Relationship Specialty Start Date End Date Cathie Bolanos PA [address] [place] [address] PCP - General Internal Medicine 01/13/18 11/09/18 Cathie Bolanos PA [address] [place] [address] PCP - General Internal Medicine 11/10/18 Cathie Bolanos PA [address] [place] [address] Internal Medicine 11/10/18 documented as of this encounter
--- OUTSIDE RECORDS SUMMARY | 2025-01-11 09:08 | XMS_ITS | Clinical Summary ---
Author Organization [facility] [place] [address] [place] [address] Care Team Providers Care Sample Card Maker Name Role Phone Cathie Bolanos Primary Care Provider [phone] Cathie Bolanos Unavailable [phone] Allergies Active Allergy Reactions Criticality Noted Date [...] total) by mouth daily 09/25/19 25 Active rosuvastatin (CRESTOR) 5 mg tablet Take 1 tablet (5 mg total) by mouth daily 90 tablet 2 11/08/19 25 2025 Active blood-glucose sensor (Dexcom G7 Sensor) deviceIndication s:Uncontrolled type 2 diabetes mellitus with hyperglycemia (HCC),Insulin long-term use (HCC) Dexcom G7 sensor use for 10 days to monitor blood sugar. 9 each 11/21/19 25 Active blood-glucose,re ceiver,cont (Dexcom G7 Filling And Packing Supervisor) miscIndications: Uncontrolled type 2 diabetes mellitus with hyperglycemia (HCC),Insulin long-term use (HCC) Dexcom G7 share dairy farmer use daily to monitor blood sugar. 1 each 11/21/19 25 Active spironolactone (ALDACTONE) 50 mg tablet Take 1 tablet (50 mg total) by mouth daily 90 tablet 12/17/19 25 2025 Active allopurinoL (ZYLOPRIM) 100 mg tabletIndication s:Elevated blood uric acid level Take 1 tablet (100 mg total) by mouth daily 90 tablet 12/22/19 25 2024 Active olmesartan-amLOD IPin-hcthiazid 40-5-12.5 mg tabletIndication s:Hypertension associated with diabetes (HCC) Take 1 tablet by mouth daily 90 tablet 1 12/22/19 25 Active gabapentin (NEURONTIN) 300 mg capsuleIndicatio ns:Uncontrolled type 2 diabetes mellitus with hyperglycemia (HCC) Take 1 capsule (300 mg total) by mouth 2 (two) times a day E11.65 180 capsule 3 05/14/20 2024 Discontinued olmesartan-amLOD IPin-hcthiazid 40-5-12.5 mg tabletIndication s:Hypertension associated with diabetes (HCC) Take 1 tablet by mouth daily 90 tablet 1 11/08/19 25 2024 Discontinued(R eorder) indomethacin (INDOCIN) 50 mg capsuleIndicatio ns:Elevated blood uric acid level Take 1 capsule (50 mg total) by mouth 3 (three) times a day with meals for 7 days 21 capsule 12/22/19 25 2024 Active Problems Problem Noted Date Diagnosed Date Lower extremity edema 12/25/2024 Assessment & Plan (12/25/2024 8:11 PM CDT): LE swelling Gout vs dependent edema vs cardiac contribution. Check labs including BNP and Uric acid level, CMP and magnesium Check ECHO Monitor closely. Start Spironolactone. If she has an elevated uric acid, may need to stop the HCTZ and treat the gout. Keep legs elevated and use compression stocking. Insulin long-term use 11/20/2024 Type 2 diabetes mellitus with hyperlipidemia Assessment & Plan (12/25/2024 8:07 PM CDT): Stressed importance of continued A1c control to minimize the usp effects of diabetes. Bring accuchecks to office when instructed to do so. Check A1c about every 3-6 months. Take medication as prescribed. Get annual eye exam. Encouraged ELINA/Statin if able to tolerate. Encouraged weight control and encouraged diabetic diet and exercise. Not well controlled. Awaiting assistance from ENDO. Appointment is in the early fall. Continue current regimen and continue to monitor closely. Type 2 diabetes mellitus with diabetic microalbu [...] provided. BMI 31.0-31.9,adult 07/01/2024 Assessment & Plan (12/25/2024 8:07 PM CDT): Discussed the patient's BMI. The [...] provided. Assessment & Plan (07/15/2024 11:17 AM CUSTODIAN ATHLETIC EQUIPMENT): Discussed the patient's BMI. The BMI is above average. BMI management plan is completed. BMI Follow-up includes: nutrition counseling, exercise counseling and education provided. Assessment & Plan (07/01/2024 11:19 AM CUSTODIAN ATHLETIC EQUIPMENT): Weight/BMI is in healthy range. Continue healthy lifestyle to maintain. Annual physical exam 12/17/2022 Assessment & Plan (06/26/2024 8:40 PM CUSTODIAN ATHLETIC EQUIPMENT): Encouraged healthy lifestyle, good nutrition and exercise. [...] of continued A1c control to minimize the electronics engineering technician effects of diabetes. Bring accuchecks to office [...] immediately Assessment & Plan (06/26/2024 8:41 PM CUSTODIAN ATHLETIC EQUIPMENT): This is a significant, separately identifiable problem [...] Offered referral to dietitian as well as consumer educator and she declines these also. Assessment & Plan (03/27/2023 1:02 PM CDT): Stressed importance of continued A1c control to minimize the electronics engineering technician effects of diabetes. Bring accuchecks to office [...] re-evaluate Assessment & Plan (07/05/2021 11:20 AM CUSTODIAN ATHLETIC EQUIPMENT): Probably multifactorial. Check labs and followup to re-evaluate Assessment & Plan (01/13/2021 10:14 PM CDT): Probably multifactorial. Check labs and followup to re-evaluate Assessment & Plan (11/11/2020 9:37 PM CDT): Probably multifactorial. Check labs and followup to re-evaluate Uncontrolled type 2 diabetes mellitus with hyperglycemia ([facility]) 10/21/2020 Assessment & Plan (08/12/2024 8:22 PM CDT): Stressed importance of continued A1c control to minimize the electronics engineering technician effects of diabetes. Bring accuchecks to office [...] prior. Assessment & Plan (07/23/2024 8:02 PM CUSTODIAN ATHLETIC EQUIPMENT): Stressed importance of continued A1c control to minimize the usp effects of diabetes. Bring accuchecks to office [...] HS. Assessment & Plan (07/10/2024 7:17 PM CUSTODIAN ATHLETIC EQUIPMENT): Stressed importance of continued A1c control to minimize the electronics engineering technician effects of diabetes. Bring accuchecks to office [...] the continuous glucose monitor as well as inclusion special educator and Endocrinology referral and she has declined all of those. She wants to work hard on doing medications as instructed to see where she ends up. Follow-up in 2 more weeks to continue to reinforce compliance. She is in agreement with the plan Assessment & Plan (06/26/2024 8:41 PM CUSTODIAN ATHLETIC EQUIPMENT): This is a significant, separately identifiable problem [...] Offered referral to dietitian as well as consumer educator and she declines these also. Assessment & Plan (05/14/2023 3:41 PM CUSTODIAN ATHLETIC EQUIPMENT): This is a chronic condition which is [...] make a change willing to see the community health representative Assessment & Plan (12/17/2022 11:21 PM CDT): This is a significant, separately identifiable problem that was evaluated and managed on the same day as the wellness exam Stressed importance of continued A1c control to minimize the usp effects of diabetes. This includes but is [...] of continued A1c control to minimize the usp effects of diabetes. Bring accuchecks to office when instructed to do so. Check A1c about every 3-6 months. Take medication as prescribed. Get annual eye exam. Encouraged ELINA/Statin if able to tolerate. Encouraged weight control and encouraged diabetic diet and exercise. Assessment & Plan (11/11/2020 9:35 PM CDT): Stressed importance of continued A1c control to minimize the electronics engineering technician effects of diabetes. Bring accuchecks to office [...] of continued A1c control to minimize the usp effects of diabetes. Bring accuchecks to office [...] to. Assessment & Plan (05/20/2020 8:50 PM CUSTODIAN ATHLETIC EQUIPMENT): Probably multifactorial. Check labs and followup to re-evaluate Assessment & Plan (05/16/2019 3:54 PM CUSTODIAN ATHLETIC EQUIPMENT): Probably multifactorial. Check labs and followup to re-evaluate Assessment & Plan (02/13/2019 4:06 PM CDT): Probably multifactorial. Check labs and followup to re-evaluate Vitamin D deficiency 01/16/2019 Assessment & Plan (12/17/2022 5:29 PM CDT): Patient not currently supplementing vitamin D but was encouraged to do so. Assessment & Plan (10/21/2020 8:39 PM CDT): supplement Assessment & Plan (05/16/2019 3:54 PM CUSTODIAN ATHLETIC EQUIPMENT): supplement Assessment & Plan (02/13/2019 4:05 PM CDT): Supplement. Hypertension associated with diabetes 12/31/2018 Assessment & Plan (08/12/2024 8:21 PM CDT): Bp is stable/in acceptable range for any co-morbidities. Encouraged to limit sodium intake and exercise for weight control. Continue Tribenzor /10/10,5 Assessment & Plan (06/26/2024 8:38 PM CUSTODIAN ATHLETIC EQUIPMENT): Bp is stable/in acceptable range for any co-morbidities. Encouraged to limit sodium intake and exercise for weight control. Continue Tribenzor .5 Assessment & Plan (05/14/2023 3:41 PM CUSTODIAN ATHLETIC EQUIPMENT): This is a chronic condition which is at goal of less than 140/90 Personally reviewed labs. Continue olmesartan, amlodipine, hydrochlorothiazide Encouraged to monitor weight and B/P at home Encouraged to take medications as prescribed. Assessment & Plan (03/27/2023 12:57 PM CDT): Bp is stable/in acceptable range for any co-morbidities. Encouraged to limit sodium intake and exercise for weight control. Continue [facility] . Assessment & Plan (12/17/2022 11:16 PM CDT): [...] week. Assessment & Plan (07/17/2022 4:47 PM CUSTODIAN ATHLETIC EQUIPMENT): Bp is stable/in acceptable range for any co-morbidities. Encouraged to limit sodium intake and exercise for weight control. Continue [facility] Assessment & Plan (06/28/2022 7:47 PM CUSTODIAN ATHLETIC EQUIPMENT): Bp is stable/in acceptable range for any co-morbidities. Encouraged to limit sodium intake and exercise for weight control. Continue [facility] .5 Assessment & Plan (11/17/2021 10:51 PM CDT): Bp is stable/in acceptable range for any co-morbidities. Encouraged to limit sodium intake and exercise for weight control. [facility] Assessment & Plan (07/05/2021 11:19 AM CUSTODIAN ATHLETIC EQUIPMENT): Bp is stable/in acceptable range for any co-morbidities. Encouraged to limit sodium intake and exercise for weight control. Continue [facility] Assessment & Plan (01/13/2021 10:12 PM CDT): Bp is stable/in acceptable range for any co-morbidities. Encouraged to limit sodium intake and exercise for weight control. [facility] Assessment & Plan (11/11/2020 9:36 PM CDT): Bp is stable/in acceptable range for any co-morbidities. Encouraged to limit sodium intake and exercise for weight control. [facility] Assessment & Plan (10/21/2020 8:39 PM CDT): Bp is stable/in acceptable range for any co-morbidities. Encouraged to limit sodium intake and exercise for weight control. [facility] bp well controlled Assessment & Plan (05/20/2020 8:50 PM CUSTODIAN ATHLETIC EQUIPMENT): Bp is stable/in acceptable range for any co-morbidities. Encouraged to limit sodium intake and exercise for weight control. Assessment & Plan (09/19/2019 9:58 AM CDT): Bp is stable/in acceptable range for any co-morbidities. Encouraged to limit sodium intake and exercise for weight control. stable Assessment & Plan (05/16/2019 3:53 PM CUSTODIAN ATHLETIC EQUIPMENT): Bp is stable/in acceptable range for any co-morbidities. Encouraged to limit sodium intake and exercise for weight control. Stable with [facility] Assessment & Plan (02/13/2019 4:04 PM CDT): Bp is stable/in acceptable range for any co-morbidities. Encouraged to limit sodium intake and exercise for weight control. Control DM [facility] Moderate episode of recurrent major depressive d isorder 12/31/2018 Assessment & Plan (06/26/2024 8:40 PM CUSTODIAN ATHLETIC EQUIPMENT): Continue Lexapro 10 as her depression symptoms [...] daily. Assessment & Plan (07/17/2022 4:47 PM CUSTODIAN ATHLETIC EQUIPMENT): Stable with Lexapro 5 mg. Assessment & Plan (06/28/2022 7:48 PM CUSTODIAN ATHLETIC EQUIPMENT): Increased stressors at home. Restart Lexapro 10 mg. Assessment & Plan (11/17/2021 10:51 PM CDT): Patient still feels like her symptoms are controlled without medication. Will continue to monitor. Assessment & Plan (10/21/2020 8:40 PM CDT): Currently stable without medication. Continue to monitor closely Assessment & Plan (05/16/2019 3:54 PM CUSTODIAN ATHLETIC EQUIPMENT): Stable with lexapro Assessment & Plan (02/13/2019 4:06 PM CDT): Stable with the Lexapro 20 mg Diabetic neuropathy associat ed with type 2 diabetes mellitus 12/31/2018 Assessment & Plan (05/14/2023 3:42 PM CUSTODIAN ATHLETIC EQUIPMENT): States neuropathy well controlled with current dose of gabapentin Assessment & Plan (03/27/2023 1:00 PM CDT): Stressed importance of continued A1c control to minimize the electronics engineering technician effects of diabetes. Bring accuchecks to office [...] Neurontin. Assessment & Plan (07/05/2021 11:19 AM CUSTODIAN ATHLETIC EQUIPMENT): Continue to manage diabetes tightly. Continue with the Neurontin. Assessment & Plan (01/13/2021 10:13 PM CDT): Stressed importance of continued A1c control to minimize the electronics engineering technician effects of diabetes. Bring accuchecks to office [...] of continued A1c control to minimize the usp effects of diabetes. Bring accuchecks to office when instructed to do so. Check A1c about every 3-6 months. Take medication as prescribed. Get annual eye exam. Encouraged ELINA/Statin if able to tolerate. Encouraged weight control and encouraged diabetic diet and exercise. Continue gabapentin Assessment & Plan (05/20/2020 8:49 PM CUSTODIAN ATHLETIC EQUIPMENT): Stressed importance of continued A1c control to minimize the electronics engineering technician effects of diabetes. Bring accuchecks to office [...] of continued A1c control to minimize the usp effects of diabetes. Bring accuchecks to office [...] of continued A1c control to minimize the usp effects of diabetes. Bring accuchecks to office [...] of continued A1c control to minimize the usp effects of diabetes. Bring accuchecks to office [...] obtain Assessment & Plan (05/16/2019 3:53 PM CUSTODIAN ATHLETIC EQUIPMENT): Stressed importance of continued A1c control to minimize the usp effects of diabetes. Bring accuchecks to office [...] of continued A1c control to minimize the electronics engineering technician effects of diabetes. Bring accuchecks to office [...] 12/31/2018 Assessment & Plan (06/26/2024 8:38 PM CUSTODIAN ATHLETIC EQUIPMENT): Continue PPI p.r.n. Assessment & Plan (03/27/2023 1:00 PM CDT): Continue PPI p.r.n. Assessment & Plan (10/21/2020 8:40 PM CDT): Stable without medication Assessment & Plan (05/16/2019 3:53 PM CUSTODIAN ATHLETIC EQUIPMENT): Currently stable without medication Assessment & Plan (02/13/2019 4:05 PM CDT): Stable without medication currently Fibromyalgia 12/31/2018 Assessment & Plan (06/28/2022 7:48 PM CUSTODIAN ATHLETIC EQUIPMENT): Continue gabapentin for pain and fibromyalgia symptoms Assessment & Plan (01/13/2021 10:14 PM CDT): Continue cymbalta Assessment & Plan (11/11/2020 9:36 PM CDT): Continue neurontin Assessment & Plan (05/16/2019 3:53 PM CUSTODIAN ATHLETIC EQUIPMENT): Stable with gabapentin Assessment & Plan (02/13/2019 [...] of her sugars. BMI 30.0-30.9,adult 07/01/2024 07/23/19 25 Assessment & Plan (07/01/2024 11:19 AM CUSTODIAN ATHLETIC EQUIPMENT): BMI Follow-up includes: Discussed diet and exercising counseling. BMI 29.0-29.9,adult 06/17/2024 07/01/19 25 Assessment & Plan (06/17/2024 10:23 AM CUSTODIAN ATHLETIC EQUIPMENT): Weight/BMI is in healthy range. Continue healthy lifestyle to maintain. Class 1 obesity due to exces s calories with serious comorbidity and body mass index (BMI) of 30.0 to 30.9 in adult 03/27/2023 06/26/2024 Assessment & Plan (05/14/2023 3:43 PM CUSTODIAN ATHLETIC EQUIPMENT): This is a chronic condition which continues Weight decreased by 3 lb since 03/23 Encouraged healthy eating and exercise Assessment & Plan (05/14/2023 3:42 PM CUSTODIAN ATHLETIC EQUIPMENT): >>ASSESSMENT AND PLAN FOR OBESITY (BMI 30-39.9) [...] 12/18/19 Assessment & Plan (07/17/2022 4:47 PM CUSTODIAN ATHLETIC EQUIPMENT): Discussed the patient's BMI. The BMI is above average. BMI management plan is completed. BMI Follow-up includes: nutrition counseling, exercise counseling and education provided. Diabetes mellitus type II, controlled 07/05/2021 07/17/2022 Assessment & Plan (06/28/2022 7:49 PM CUSTODIAN ATHLETIC EQUIPMENT): Stressed importance of continued A1c control to minimize the usp effects of diabetes. Bring accuchecks to office [...] of continued A1c control to minimize the usp effects of diabetes. Bring accuchecks to office [...] week Assessment & Plan (07/05/2021 11:21 AM CUSTODIAN ATHLETIC EQUIPMENT): Stressed importance of continued A1c control to minimize the usp effects of diabetes. Bring accuchecks to office [...] 06/13/20212022 Assessment & Plan (07/17/2022 4:06 PM CUSTODIAN ATHLETIC EQUIPMENT): Discussed the patient's BMI. The BMI is above average. BMI management plan is completed. BMI Follow-up includes: nutrition counseling, exercise counseling and education provided. Assessment & Plan (06/28/2022 7:48 PM CUSTODIAN ATHLETIC EQUIPMENT): Discussed the patient's BMI. The BMI is [...] provided. Assessment & Plan (06/13/2021 3:38 PM CUSTODIAN ATHLETIC EQUIPMENT): Obesity is unchanged. Discussed the patient's BMI. The BMI is above average. BMI management plan is completed. BMI Follow-up includes: nutrition counseling, exercise counseling and education provided. BMI 31.0-31.9,adult 06/13/2021 07/17/19 23 Assessment & Plan (06/28/2022 7:48 PM CUSTODIAN ATHLETIC EQUIPMENT): Discussed the patient's BMI. The BMI is [...] provided. Assessment & Plan (06/13/2021 3:38 PM CUSTODIAN ATHLETIC EQUIPMENT): Obesity is unchanged. Discussed the patient's BMI. The BMI is above average. BMI management plan is completed. BMI Follow-up includes: nutrition counseling, exercise counseling and education provided. Colon cancer screening 01/13/202106/28 Assessment & Plan (01/13/2021 10:15 PM CDT): Refer to Dr. Alvarez to do colonoscopy after age 51yo. BMI 31.0-31.9,adult 01/10/2021 08/13/19 25 Assessment & Plan (07/15/2024 11:17 AM CUSTODIAN ATHLETIC EQUIPMENT): Discussed the patient's BMI. The BMI is [...] 12/17/2022 Assessment & Plan (06/28/2022 7:48 PM CUSTODIAN ATHLETIC EQUIPMENT): Mammogram order provided Assessment & Plan (01/13/2021 [...] 20 Assessment & Plan (05/11/2019 3:51 PM CUSTODIAN ATHLETIC EQUIPMENT): BMI Follow-up includes: Discussed diet and exercising counseling. Obesity (BMI 30-39.9) 05/11/20192019 Assessment & Plan (05/16/2019 3:53 PM CUSTODIAN ATHLETIC EQUIPMENT): BMI Follow-up includes: Discussed diet and exercising [...] appropirate screenings. Needs Tdap Long-term insulin use ([facility]) 02/07/2019 07/17/2022 Assessment & Plan (11/17/2021 [...] closely Assessment & Plan (05/16/2019 3:54 PM CUSTODIAN ATHLETIC EQUIPMENT): Continue with current regimen Assessment & Plan [...] Encounters Date Type Department Care Team Description 12/20/2024 Results Follow-Up [address] [place] [phone] Cathie Bolanos PA Comprehensive metabolic panel 12/16/2024 11:30 AM CDT Office Visit [address] [place] [phone] Cathie Bolanos PA Lower extremity edema (Primary Dx); Type 2 diabetes mellitus with hyperlipidemia (HCC); BMI 31.0-31.9,adult; Obesity (BMI 30-39.9) 12/13/[address] [place] [address] Cathie Bolanos PA Forms Request 11/07/2024 3:30 PM CDT Office Visit [address] [place] [phone] Cathie Bolanos PA Uncontrolled type 2 diabetes mellitus with hyperglycemia (CMS/HCC) (HCC) (Primary Dx); Type 2 diabetes mellitus with diabetic microalbuminuria, with long-term current use of insulin (HCC); Type 2 diabetes mellitus with hyperlipidemia (HCC); Hypertension associated with diabetes (HCC); Insulin long-term use (HCC); Moderate episode of recurrent major depressive disorder (HCC); BMI 31.0-31.9,adult; Obesity (BMI 30-39.9) 11/07/2024 Results Follow-Up [address] [place] [phone] Cathie Bolanos PA CBC with auto differential, Comprehensive metabolic panel, Hemoglobin A1c, Additional followed-up results: 3 10/31/[address] [place] [phone] Cathie Bolanos PA Medical Question/Miscellaneous 10/27/[address] [place] [phone] Cathie Bolanos PA Appointment Request from Last 3 Months Immunizations Immunization Administration [...] on file Legal Sex Female 6:08 PM CUSTODIAN ATHLETIC EQUIPMENT Gender Identity Not on file Sexual Orientation Not on file 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 Not on file Not on file Not on file Not on file Not on file Not on file Not on file Obstetrics History Last Filed Vital Signs Vital Sign Reading Time Taken Comments Blood Pressure 126/72 12/16/2024 11:15 AM CDT Pulse 89 12/16/2024 11:15 AM CDT Temperature 36.7 C (98.1 F) 12/16/2024 11:15 AM CDT Respiratory Rate 16 06/19/2022 3:18 PM CUSTODIAN ATHLETIC EQUIPMENT Oxygen Saturation 99% 12/16/2024 11:15 AM CDT [...] Creatinine Ratio, Urine 06/16/2025 06/16/2024, 06/19/2023, 06/17/2022 Regular Well Visit/Exam 18-64 06/17/2025, 12/17/2022, 11/14/2021, Additional history exists Breast Cancer Screening-Mammogram 07/29/2025 07/29/2024, 11/22/2022, 01/19/2021, Additional history exists Dilated Eye Exam 09/09/2025 09/09/2024, , 02/28/2021, Additional history exists Lipid Panel 11/05/2025 11/05/2024, 06/01, 06/19/2023, Additional history exists Depression Screening 12/16/2025 12/16/2024, 11/07/2024, 09/14/2024, Additional history exists eGFR 12/16/2025 12/16/2024, 06/01, 06/19/2023, Additional history exists DTaP/Tdap/Td Vaccine (2 - Td or Tdap) 02/07/2029 02/07/2019 Colon Cancer Screening-Colonoscopy 03/11/20312020 Hepatitis C Screening Completed 04/22/2017 Procedures Procedure Name Priority Date/Time Associated Diagnosis Comments COMPREHENSIVE METABOLIC PANEL Routine 12/16/2024 3:47 PM CDT Lower extremity edema VITAMIN B12 Routine 11/05/2024 Fatigue, unspecified type TSH Routine 11/05/2024 Fatigue, unspecified type LIPID PANEL Routine 11/05/2024 Hypertension associated with diabetes (HCC) HEMOGLOBIN A1C Routine 11/05/2024 Hypertension associated with diabetes (HCC) COMPREHENSIVE METABOLIC PANEL Routine 11/05/2024 Hypertension associated with diabetes (HCC) CBC WITH AUTO DIFFERENTIAL Routine 11/05/2024 Fatigue, unspecified type DIABETES EYE EXAM Routine 09/09/2024 12:26 PM CDT MAMMOGRAPHY Routine 07/29/2024 ALBUMIN CREATININE RATIO, URINE Routine 06/16/2024 Type 2 diabetes mellitus without complication, with long-term current use of insulin (HCC) Annual physical exam COLONOSCOPY Routine 03/11/2021 HEPATITIS PANEL, ACUTE Routine 7 9:57 AM CUSTODIAN ATHLETIC EQUIPMENT from Last 3 Months or Most Recently Relevant to Health Maintenance Results * (ABNORMAL) Comprehensive metabolic panel (12/16/2024 3:47 PM CDT) SCRIBED Sodium 134(A) 137 - 145 mmol/L EXTERNAL LAB SCRIBED Potassium 4.2 3.4 - 5.0 mmol/L EXTERNAL LAB SCRIBED Chloride 103 98 - 107 mmol/L EXTERNAL LAB SCRIBED Carbon Dioxide 25 22 - 30 mmol/L EXTERNAL LAB SCRIBED Anion Gap 6 4 - 12 mmol/L EXTERNAL LAB SCRIBED Urea Nitrogen (BUN) 23(A) 7 - 17 mg/dl EXTERNAL LAB SCRIBED Creatinine 0.89 0.7 - 1.0 mg/dl EXTERNAL LAB SCRIBED Glucose 279(A) 65 - 110 mg/dl EXTERNAL LAB SCRIBED Calcium 9.7 8.4 - 10.2 mg/dl EXTERNAL LAB SCRIBED Bilirubin 0.3 0.2 - 1.3 mg/dl EXTERNAL LAB SCRIBED Plasma Protein 7.6 6.3 - 8.2 g/dl EXTERNAL LAB SCRIBED Albumin 4.0 3.5 - 5.1 g/dl EXTERNAL LAB SCRIBED Alkaline Phosphatase 124 38 - 126 Units/L EXTERNAL LAB SCRIBED Alanine Transaminase (ALT) 24 6 - 35 Units/L EXTERNAL LAB SCRIBED Aspartate Transaminase (AST) 29 14 - 36 Units/L EXTERNAL LAB SCRIBED eGFR in >60 60 - 60 EXTERNAL LAB SCRIBED eGFR in NonAfrican Norwegian 0 0 - 0 EXTERNAL LAB Blood 12/16/2024 3:47 PM CDT us Cathie [facility] BLOOD ORDERABLES Final Result EXTERNAL LAB * (ABNORMAL) CBC with auto differential (11/05/2024) [...] BLOOD ORDERABLES Final Result Performing Organization Address City/[facility] Co de Phone Number EXTERNAL LAB * TSH (11/05/2024) Scribed TSH 0.69 0.47 - 4.68 mcU/mL EXTERNAL LAB Blood 11/05/2024 Result [facility] Cathie FLOWERS LAB BLOOD ORDERABLES Edite d Result - Final Performing Organization Address [facility] de Phone Number EXTERNAL LAB * (ABNORMAL) Hemoglobin A1c (11/05/2024) SCRIBED Hemoglobin A1c 11.4(A) 4.0 - 5.6 % EXTERNAL LAB Comment:0 Blood 11/05/2024 Cathie FLOWERS LAB BLOOD ORDERABLES Final Result EXTERNAL LAB * Vitamin B12 (11/05/2024) SCRIBED Vitamin B12 319.0 239 - 931 EXTERNAL LAB Blood 11/05/2024 Cathie FLOWERS LAB BLOOD ORDERABLES Final Result EXTERNAL LAB * (ABNORMAL) Lipid panel (11/05/2024) SCRIBED Cholesterol, Total 202(A) 30 - 199 mg/dL EXTERNAL LAB SCRIBED Triglycerides 174(A) <=149 mg/dL EXTERNAL LAB SCRIBED HDL 65 >=40 mg/dL EXTERNAL LAB SCRIBED LDL 65 <=129 mg/dL EXTERNAL LAB Scribed Non-HDL Cholesterol 0 NONE mg/dL EXTERNAL LAB Comment:0 SCRIBED Total Cholesterol/HDL Ratio 202 NONE EXTERNAL LAB Comment:0 Blood 11/05/2024 Cathie FLOWERS LAB BLOOD ORDERABLES Final Result EXTERNAL LAB * (ABNORMAL) [...] - 2 EXTERNAL LAB Blood 11/05/2024 Result [facility] Cathie FLOWERS LAB BLOOD ORDERABLES Final Result Performing Organization Address City/[facility] Co de Phone Number EXTERNAL LAB * (ABNORMAL) DIABETES EYE EXAM (09/09/2024 12:26 PM CDT) Impressions Genoveva Mcgarry, YESENIA - 09/09/2024 12:26 PM CDT retinopathy Result [facility] Provider HEALTH MAINTENANCE Edited Result - Final * MAMMOGRAPHY (07/29/2024) Mammography Normal 07/29/2024 Result [facility] Provider [facility] MA[facility]TE[facility] Final Result * (ABNORMAL) Albumin Creatinine Ratio, Urine (06/16/2024) SCRIBED Creatinine, Urine 293.8(A) 0 - 0 EXTERNAL LAB SCRIBED Micro ACR, Urine >1,140.0 0 - 16.7 EXTERNAL LAB SCRIBED Microalb/Creat Ratio >388 0 - 30 EXTERNAL LAB Urine 06/16/2024 Result [facility] Cathie FLOWERS LAB URINE ORDERABLES Final Result Performing Organization Address [facility] Co de Phone Number EXTERNAL LAB * COLONOSCOPY (03/11/2021) Scribed Colonoscopy Abnormal Narrative Cathie Bolanos PA - 03/11/2021 Dr. Alvarez --->hyperplastic polyp Repeat 10 years Result [facility] Provider [facility] MAINTE[facility]CE Final Result * Hepatitis panel, acute (04/22/2017 9:57 AM CUSTODIAN ATHLETIC EQUIPMENT) Hep A IgM TNP [facility] HISTORICAL RESULTS Comment: * Test not performed. * * No specimen received. * HepBsAg [facility] HISTORICAL RESULTS Comment: * Test not performed. * * No specimen received. * Hep B core IgM TNP [facility] HISTORICAL RESULTS Comment: * Test not performed. * * No specimen received. * Hep C Ab [facility] HISTORICAL RESULTS Comment: * Test not performed. * * No specimen received. * 04/22/2017 9:57 AM CUSTODIAN ATHLETIC EQUIPMENT 04/27/2017 3:20 PM CUSTODIAN ATHLETIC EQUIPMENT Narrative [facility] HISTORICAL RESULTS - 04/27/2017 3:01 PM CUSTODIAN ATHLETIC EQUIPMENT 0 0 PERFORMING LAB: [place], [facility] [id number] [place] [id number] Saul Urrutia D.O., MPH us Historical Provider LAB MICROBIOLOGY - GENERA L ORDERABLES Final Result [facility] HISTORICAL RESULTS from Last 3 Months or Most Recently Relevant to Health Maintenance Insurance [facility] Care Teams Sample Card Maker Relationship Specialty Start Date End Date Cathie Bolanos PA [address] [place] [address] PCP - General Internal Medicine 11/10/18 Cathie Bolanos PA [address] [place] [address] Internal Medicine 11/10/18
--- OUTSIDE RECORDS SUMMARY | 2025-01-11 09:08 | XMS_ITS | Encounter Summary ---
Author Organization [facility] Healthcare Address [address] [place] [address] Care Team Providers Care Gunstock Spray Unit Adjuster Name Role Phone Cathie Bolanos Primary Care Provider [phone]- [phone] Cathie Bolanos Unavailable [phone] Reason for Visit * Reason Onset Date Comments Forms Request 12/13/2024 Encounter Details Date Type Department Care Team (Late st Contact Info) Description 12/13/2024 Telephone [facility] Medical [facility] Family Medicine [address] [facility] [address] [place] [phone] Cathie Bolanos PA [address] [address] Forms Request Social History Tobacco [...] on file Legal Sex Female 6:08 PM DESKTOP SUPPORT ENGINEER Gender Identity Not on file Sexual Orientation Not on file 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 Patient How to return form to patient:sending to patient as attachment via WebTebt Additional Comments: patient will drop off on Thursday Does message need to be routed? Yes-Action Needed documented in this encounter Plan of Treatment Not on file documented as of this encounter Visit Diagnoses Not on filedocumented in this encounter Care Teams Gunstock Spray Unit Adjuster Relationship Specialty Start Date End Date Cathie Bolanos PA [address] [place] [address] PCP - General Internal Medicine 11/10/18 Cathie Bolanos PA [address] [place] [address] Internal Medicine 11/10/18 documented as of this encounter
--- OUTSIDE RECORDS SUMMARY | 2025-01-11 09:08 | XMS_ITS | Encounter Summary ---
Author Organization [facility] Care Team Providers Care Melting Supervisor Name Role Phone Cathie Bolanos Primary Care Provider [phone] Cathie Bolanos Primary Care Provider [phone]- [phone] Cathie Bolanos Unavailable [phone] Encounter Details Date Type Department Care Team (Latest Contact Info) Description 07/31/2015 Orders Only [facility] Provider, MD King [address] [place] [phone] Social History Tobacco Use Types Packs/Day Years Used Date Smoking Tobacco: Never Assessed Comments Unknown Sex and Gender Information Value Date Recorded Sex Assigned at Not on file Legal Sex Female 6:08 PM PROCEDURES RN Gender Identity Not on file Sexual Orientation [...] on filedocumented in this encounter Care Teams Melting Supervisor Relationship Specialty Start Date End Date Cathie Bolanos PA [address] [place] [address] PCP - General Internal Medicine 01/13/18 11/09/18 Cathie Bolanos PA [address] [place] [address] PCP - General Internal Medicine 11/10/18 Cathie Bolanos PA [address] [place] [address] Internal Medicine 11/10/18 documented as of this encounter
== END 2025-01-11 09:00 | disposition home or self-care (01) ==
PROVIDERS: PCP Physician Assistant; Visit Provider Physician Assistant
DX: R93.1 Abnormal findings on diagnostic imaging of heart and coronary circulation (principal); R60.0 Localized edema
CPT/HCPCS: 93306

== ENCOUNTER 2025-05-05 09:10 | Outpatient (CLI) | payer BC, SELFPAY ==
--- NOTE | ~2025-05-05 | XR_ITS ---
EXAMINATION: XR chest 2V, 05/05/2025 9:45 CLINICAL COUNSELOR HISTORY: Chest congestion x 4 weeks, hx of diabetes and high bp COMPARISON: No comparisons available. Technique: 2 views obtained. Findings: Mild pulmonary venous congestion. Minimal left lower lobe atelectasis. No pneumothorax. Mild cardiomegaly. Mediastinal and hilar contours are within normal limits. Bony thorax no acute abnormality. Impression: Mild CHF Reviewed, dictated and finalized at location P. ICAL COUNSELOR Impression: Mild CHF
[2025-05-05 10:16] LABS: Alanine Aminotransferase 23 U/L (6-35); Albumin Level 4.2 g/dL (3.5-5.1); Alkaline Phosphatase 109 U/L (38-126); Anion Gap 3 mmol/L (4-12); Aspartate Amino Transferase 23 U/L (14-36); Bilirubin,Total 0.5 mg/dL (0.2-1.3); Blood Urea Nitrogen 36 mg/dL (7-17); Calcium 9.9 mg/dL (8.4-10.2); Carbon Dioxide 27 mmol/L (22-30); Chloride 106 mmol/L (98-107); Estimated Glomerular Filt Rate 50; Glucose 274 mg/dL (65-110); Lipase 252 U/L (23-300); Magnesium 2.4 mg/dL (1.6-2.3); Potassium 4.3 mmol/L (3.4-5.0); Sodium 136 mmol/L (137-145); Total Protein 7.9 g/dL (6.3-8.2); Uric Acid 8.8 mg/dL (2.5-7.5)
[2025-05-05 10:23] LABS: NT Pro B Type Natriuretic Pept 42 pg/mL (19.9-100)
[2025-05-10 16:08] LABS: GAD-65 Antibody <5.0 U/mL (0.0-5.0)
== END 2025-05-05 09:11 | disposition home or self-care (01) ==
LOC: ANHLAB 09:13
PROVIDERS: PCP Physician Assistant; Visit Provider Physician Assistant
DX: R09.89 Other specified symptoms and signs involving the circulatory and respiratory systems (principal); R05.1 Acute cough; I10 Essential (primary) hypertension; E11.65 Type 2 diabetes mellitus with hyperglycemia; R60.0 Localized edema; E87.1 Hypo-osmolality and hyponatremia; Z79.4 Long term (current) use of insulin
CPT/HCPCS: 36415; 71046; 80053; 83690; 83735; 83880; 84550; 84681; 86341

== ENCOUNTER 2025-05-05 13:57 | Emergency (ER) | payer BC, SELFPAY ==
--- NOTE | ~2025-05-05 | XR_ITS ---
XR chest 1V portable 05/05/2025 15:42 Indication: Chest pain Procedure: AP portable chest Comparison: Comparison to multiple prior studies sequentially, with oldest reviewed study dated 12/16/2017. Findings: Shallow inspiration. Left basilar atelectasis. Right lung clear. No pleural effusion, edema or pneumothorax. No acute osseous abnormality. Impression: 1: Left basilar atelectasis. Reviewed, dictated and finalized at location I. ACTER ACTRESS Impression: 1: Left basilar atelectasis.
[2025-05-05 14:11] VITALS: BP 167/100; PULSE 95; RESP 16; TEMP 36.3; O2SAT 100
--- NOTE | 2025-05-05 15:36 | ED.GENADULT ---
HPI - General Adult General Chief complaint: Recheck/Abnormal Lab/Rx Stated complaint: abn lab/imaging - signs of CHF Time Seen by Provider: 05/05/25 15:28 Source: patient Mode of arrival: ambulatory Limitations: no limitations History of Present Illness HPI narrative: 55 YEARS OLD FEMALE REFERRED TO THE EMERGENCY ROOM BY HER FAMILY PHYSICIAN TO RULE OUT THE POSSIBILITY OF CONGESTIVE HEART FAILURE. PATIENT IS TELLING ME THAT SHE BEEN HAVING PRODUCTIVE COUGH OF CLEAR SPUTUM FOR 1 MONTH. AFTER BEEN IN CONTACT WITH HER GRAND KID WHO HAD SIMILAR SYMPTOM THEN HER DAUGHTER HAD SIMILAR SYMPTOMS BUT THE IMPROVED BUT PATIENT STATED COUGHING. NO FAMILY PHYSICIAN ORDER CHEST X-RAY WHICH SHOWED POSSIBLE CHF. PATIENT DENIES ANY FEVER, CHILLS, NAUSEA, VOMITING, SHORTNESS OF BREATH OR CHEST PAIN. HISTORY OF HYPERTENSION DIABETES NOT ON ANTICOAGULANT OR ANTI-PLATELET MEDICATION, DOES NOT SMOKE OR DRINK BUT USES MARIJUANA DAILY. Related Data Home Medications ?Medication ?Instructions ?Recorded ?Confirmed ?Last Taken ?Type dulaglutide 1.5 mg/0.5 mL mg subcut 07/08/23 Unknown History subcutaneous pen injector (Trulicity) empagliflozin 25 mg tablet mg 07/08/23 Unknown History (Jardiance) famotidine 20 mg tablet (Pepcid) mg 07/08/23 Unknown History insulin degludec 100 unit/mL (3 unit subcut 07/08/23 Unknown History mL) subcutaneous pen olmesartan 40 mg-amlodipine 5 tablet PO 07/08/23 Unknown History mg-hydrochlorothiazide 12.5 mg tablet pen needle, diabetic 31 gauge x 07/08/23 07/08/23 Unknown History 08/14 (TRUEplus Pen Needle) Allergies Allergy/AdvReac Type Severity Reaction Status Date / Time lisinopril Allergy Cough Verified 05/05/25 14:04 Review of Systems Review of Systems: All systems reviewed & are unremarkable except as noted in HPI and below PMFSH Family History Family History Sibling Family history of congestive heart failure Other Cerebrovascular accident Family history of heart disease in male family member before age 55 Social History Social History Smoking status: Never smoker Alcohol intake: current Exam Narrative: GENERAL APPEARANCE: WELL-DEVELOPED, WELL-NOURISHED SKIN: NORMAL COLOR HEAD: NORMOCEPHALIC, NONTRAUMATIC EYES: CLEAR CONJUNCTIVA ENT: OROPHARYNX NORMAL, EARS NORMAL, NOSE NORMAL NECK: SUPPLE, NONTENDER CHEST AND RESPIRATORY: AIRWAY PATENT, NO RESPIRATORY DISTRESS, NO ACCESSORY MUSCLE USE HEART: REGULAR RATE/RHYTHM ABDOMEN: SOFT, NONTENDER, NO ORGANOMEGALY, QUIET BOWEL SOUNDS VASCULAR: NORMAL PERIPHERAL PULSES, NORMAL CAPILLARY REFILL. MUSCULOSKELETAL: NORMAL RANGE OF MOTION, NONTENDER BACK NEUROLOGIC: ALERT AND ORIENTED ?3, RN PARALEGAL IS NORMAL TESTED, NO GROSS MOTOR DEFICIT Course Vital Signs Vital signs: Vital Signs Temperature 36.3 C L 05/05/25 14:11 Pulse Rate 95 05/05/25 14:11 Respiratory Rate 16 05/05/25 14:11 Blood Pressure 167/100 H 05/05/25 14:11 Pulse Oximetry 100 05/05/25 14:11 Temperature 36.3 C L 05/05/25 14:11 Pulse Rate 90 05/05/25 16:08 Respiratory Rate 18 05/05/25 16:08 Blood Pressure 148/94 H 05/05/25 16:08 Pulse Oximetry 100 05/05/25 16:08 [facility] Narrative Medical decision making narrative: PATIENT REFERRED TO OUR EMERGENCY ROOM BY HER FAMILY PHYSICIAN TO RULE OUT THE POSSIBILITY OF CHF. HISTORY OF PRODUCTIVE COUGH FOR 1 MONTH. VITAL SIGNS SHOWING BLOOD PRESSURE 167/183 OTHERWISE WITHIN NORMAL LIMIT PHYSICAL EXAMINATION SHOWING A PATIENT WITH HOARSENESS OF VOICE INTERMITTENT COUGHING OTHERWISE WITHIN NORMAL LIMIT. DIFFERENTIAL DIAGNOSIS INCLUDE POST UPPER RESPIRATORY VIRAL INFECTION, BRONCHITIS, PNEUMONIA. BLOOD WORKUP TODAY INCLUDES CBC, CMP, TROPONIN, PRO BMP SHOWED BLOOD GLUCOSE 280 OTHERWISE WITHIN NORMAL LIMIT CHEST X-RAY SHOWING A LEFT BASE ATELECTASIS EKG SHOWED NO SIGNIFICANT ABNORMALITY DIAGNOSIS: ACUTE BRONCHITIS DISCHARGED ON Z-LOGAN, AND BENZONATATE THE PT WAS DISCHARGED TO HOME.THE PT,S CONDITION UPON DISCHARGE WAS FAIR,EDUCATION WAS PROVIDED TO THE PT IN REFERENCE TO THE FINAL IMPRESSION,DISCHARGE STUDY RESULTS,TREATMENT,PROGNOSIS AND NEED FOR FOLLOW UP . Differential Diagnosis Differential Diagnosis: ABOVE Lab Data [facility] Lab Attestation statement: I personally reviewed the patient's lab results. 05/05/25 16:05 05/05/25 16:05 Labs: Lab Results 05/05/25 05/05/25 Range/Units 16:05 16:05 WBC 6.7 (4.5-10.0) K/mm3 RBC 4.10 L (4.2-5.4) M/mm3 Hgb 12.7 (12.0-15.0) g/dL Hct 37.5 (37.0-47.0) % MCV 91.5 (80-100) fl MCH 31.0 (26-34) pg MCHC 33.9 (32-36) g/dl RDW 12.4 (11.5-14.5) % Plt Count 252 (150-375) k/mm3 MPV 11.8 H (7.4-10.4) fl Immature Gran % (Auto) 0.1 (0-0.5) % Neut % (Auto) 55.5 (45.5-73.1) % Lymph % (Auto) 34.8 (18.3-44.2) % [place] % (Auto) 7.3 (2.6-8.5) % Eos % (Auto) 1.6 (0-4.4) % Baso % (Auto) 0.7 (0.2-1.2) % Lymph # (Auto) 2.34 (0.9-3.2) K/mm3 [place] # (Auto) 0.5 (0.1-0.6) K/mm3 Eos # (Auto) 0.1 (0-0.3) K/mm3 Baso # (Auto) 0.1 (0.0-0.1) K/mm3 Abs Immat Gran (auto) 0.01 (0.00-0.031) K/mm3 Absolute Neuts (auto) 3.7 (1.3-6.7) K/mm3 Absolute Nucleated RBC 0.000 (0.0-0.012) K/mm3 Nucleated RBC % 0.0 (0.0-0.2) % Sodium 133 L (137-145) mmol/L Potassium 4.1 (3.4-5.0) mmol/L Chloride 104 (98-107) mmol/L Carbon Dioxide 25 (22-30) mmol/L Anion Gap 4 (4-12) mmol/L BUN 34 H (7-17) mg/dL Creatinine 1.04 H (0.7-1.0) mg/dL Estim Creat Clear Calc 53 ml/min Estimated GFR 55 L (59 - ) Glucose 280 H (65-110) mg/dL Calcium 9.3 (8.4-10.2) mg/dL Total Bilirubin 0.4 (0.2-1.3) mg/dL AST 20 (14-36) U/L ALT 21 (6-35) U/L Alkaline Phosphatase 102 (38-126) U/L Troponin I < 0.012 Cancelled (0.000-0.034) ng/mL NT-Pro-B Natriuret Pep 36 (19.9-100) pg/mL Total Protein 7.1 (6.3-8.2) g/dL Albumin 3.8 (3.5-5.1) g/dL Imaging Data Radiologist's impression: ITS Impressions Chest X-Ray 05/05/25 15:46 Impression: 1: Left basilar atelectasis. ECG Data EKG #1: Attestation: I personally reviewed and interpreted this ECG as follows: ECG completion date: 05/05/25 Prior ECG tracings: not available for review Interpretation: NORMAL SINUS RHYTHM AT 90 BEATS PER MINUTE, LEFT AXIS DEVIATION, POSSIBLE ANTERIOR MYOCARDIAL INFARCTION, PROBABLY OLD, BORDERLINE T-WAVE ABNORMALITY-INFERIOR LEADS BASELINE ARTIFACT, ABNORMAL EKG, NO PREVIOUS EKG AVAILABLE FOR COMPARISON Critical Care Time Critical Care Time Critical Care Time: No Discharge Plan Discharge Clinical Impression: Bronchitis Patient Disposition: Home Condition: Stable Instructions: Antibiotic Form, Azithromycin (By mouth) Additional Instructions: RETURN IF SYMPTOMS ARE WORSENING , CALL YOUR FAMILY PHYSICIAN FOR APPOINTMENT, TAKE TYLENOL NEEDED FOR ACHES AND PAIN, CONTINUE HOME MEDICATIONS. Patient Language: Syriac Prescriptions: New azithromycin [Zithromax Z-Logan] 250 mg tablet 250 mg PO DAILY PRN (Reason: pneumonia) 5 Days Qty: 6 0RF benzonatate 200 mg capsule 200 mg PO TID PRN (Reason: cough) Qty: 30 0RF No Action famotidine [Pepcid] 20 mg Tablet (DME) pen needle, diabetic [TRUEplus Pen Needle] 31 gauge x 3/16 needle MISCELLANEOUS [id number] 40-5-12.5 mg tablet PO insulin degludec 100 unit/mL (3 mL) insulin pen SUBCUT Jardiance 25 mg tablet Trulicity 1.5 mg/0.5 mL pen injector SUBCUT acetaminophen 500 mg tablet 500 mg PO Q6H PRN (Reason: pain) Qty: 30 0RF amoxicillin 500 mg tablet 1,000 mg PO Q8H 5 Days Qty: 30 0RF Follow-up/Referrals: Cici,LIONEL Brand [Primary Care Provider, Unknown]
--- NOTE | 2025-05-05 15:37 | ECG_ITS ---
Test Date: 2025-05-05 16:10:21 Measurements Intervals [place] Rate: 90 P: 26 [place]: 179 QRS: -37 QRSD: 88 T: 6 QT: 390 QTc: 478 Interpretive Statements SINUS RHYTHM LEFT AXIS DEVIATION VOLTAGE CRITERIA FOR LVH POSSIBLE ANTERIOR MYOCARDIAL INFARCTION , PROBABLY OLD BORDERLINE T WAVE ABNORMALITY- INFERIOR LEADS BASELINE ARTIFACT- I, II, III, AVR, AVL, AVF, V1-V6 ABNORMAL ECG No previous ECG available for comparison Electronically Signed On 05-05-2025 16:35:37 [employer] by Deandre Quintero D.O.
--- OUTSIDE RECORDS SUMMARY | 2025-05-05 16:05 | XMS_ITS | Encounter Summary ---
Author Organization [facility] Healthcare Address [address] [place] [address] Care Team Providers Care Secretary Board Of Commissioners Name Role Phone Cathie Bolanos Primary Care Provider [phone] Cathie Bolanos Unavailable Reason for Visit * Reason Onset Date Comments Medical Question/Miscellaneous 04/25/2025 Encounter Details Date Type Department Care Team (Late st Contact Info) Description 04/25/2025 Telephone [facility] Medical Group Family Medicine [address] [facility] [address] [place] [address] Cathie Bolanos PA [address] [facility] [address] [place] [address] Medical Question/Miscellaneous Social History Tobacco Use Types Packs/Day Years Used Date Smoking Tobacco: Never Smokeless Tobacco: Never Alcohol Use Standard Drinks/Week Comments Not Currently 0 (1 standard drink = 0.6 oz pur e alcohol) 2/week PHQ-2 Answer Date Recorded PHQ-2 Total Score (If total score is 3 or more points, staff should administer the PHQ-9) 0 02/20/2025 PHQ-9 Answer Date Recorded PHQ-9 Total Score 0 06/17/2024 AUDIT-C Answer Date Recorded Q1: How often do you have a drink containing alcohol? Never 02/20/2025 Q2: How many drinks containi ng alcohol do you have on a typical day when you are drinking? Patient does not drink Q3: How often do you have si x or more drinks on one occasion? 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 Her will try to take her today, otherwise she will go Thursday.She feels like she is getting better slowly. It is breaking up, and draining from her nose. It is not as yellow as it was. R WORKER * Telephone Encounter - Janeth Segundo LPN - 05/02/2025 10:49 AM ORDER WORKER Called and LVM to check on pt and see if she got the CXR and labs done. R WORKER * Telephone Encounter - Janeth Segundo LPN - 04/26/2025 9:39 AM ORDER WORKER Called pt and informed her that urine and CXR orders were also ordered and faxed over to [facility]. Pt stated she will try to go get them done today. Will pend to check on pt next week. R WORKER * Telephone Encounter - Cathie Bolanos PA - 04/25/2025 3:25 PM ORDER WORKER Noted. Will await results -- If her symptoms increase as we go into the , she needs to go to the ER immediately. It is not normal to be sick this long and she needs to be seen if her symptoms persist -- both for the respiratory infection and her diabetes. Please check on her next week. R WORKER * Telephone Encounter - Janeth Segundo LPN - 04/25/2025 3:18 PM ORDER WORKER Called and LVM for pt to notify her that the CXR and urine order was also placed and faxed. Asked pt to please notify office that she received the message. R WORKER * Telephone Encounter - Janeth Segundo LPN - 04/25/2025 3:12 PM ORDER WORKER Called patient and she stated that her sickness was all respiratory and sinus symptoms. She has hada lot of mucus and phlegm and coughed up thick yellow mucus. She also had nausea, CADENA, left ear ringing, felt like a bad cold. Pt stated that she is taking OTC Diabetic and HTN cough syrup and that ithas broken it up a lot. Pt continued to cough while on the phone. Pt denies abdominal pain. She states that her FBS has been 160s-220s and she has not had much of an appetite and just started eating again. She stated that she stayed hydrated. Pt stated she missed a couple of days of Basaglar as shewas out and did not feel well enough to go to the pharmacy. Pt stated that she has it now and is taking it every morning. Lab orders placed and faxed to [facility] and per verbal orders from PCP, CXR order placed and faxed also. R WORKER * Telephone Encounter - Cathie Bolanos PA - 04/25/2025 2:52 PM ORDER WORKER I am very concerned if she has been sick for 6+ weeks. Her glucose levels have NOT been well controlled and if she has been sick I am concerned these could have increased and is she in kiabetic ketoacidosis? What are her glucose readings running first thing in the morning? Any symptoms of infection (what does she mean she has been sick) as infection will raise her glucose levels. Is she having abdominal pain? Is she taking her insulin and how much and when? If her glucose is controlled, she needs to get labs done prior to visit -- they are in the system Glutamic Acid C-peptide Uric acid BNP CMP Urine culture Lipase R WORKER * Telephone Encounter - Janeth Segundo LPN - 04/25/2025 2:29 PM ORDER WORKER Patient scheduled for first available that works with her schedule on 05/08 at 4:30p. She did not keep her endo appt because she said she has been sick going on 4 weeks and she did not feel up to going (Endo appt was on 03/10 which is about 6.5 weeks ago) RA stands for recommended accommodations. Asked pt what she is needing this for and she stated thatwhen she is in the office, her legs and feel swell up so bad and hurt that she needs documentation for this. When she is at home she bought a new sofa that she can elevate her feet and that does not occur. R WORKER * Telephone Encounter - Cathie Bolanos PA - 04/25/2025 2:06 PM ORDER WORKER Patient missed her last appointment, please get her rescheduled. Did she keep her appointment with the Senior Electronics Technician so we can get better control of her diabetes as this can contribute to her neuropathy. I am not aware a a diagnosis of RA -- I am assuming this stands for Rheumatoid arthritis --- Have her make an appointment so we can discuss/review paperwork. R WORKER * Telephone Encounter - Ruthann Patton MA - 04/25/2025 11:30 AM CST Returned patient's call and she requested to restart her gabapentin. Her feet are hurting really bad. She is also going to have her daughter drop off paperwork for accommodations for her RA. R WORKER * Telephone Encounter - Melanie Parnell - 04/25/2025 9:10 AM CST Medical Question/Miscellaneous Caller???s Concern: Pt calling asking if the MA can return her call (no details provided) and also pt has forms that need sot be signed by LIONEL Brand and will upload in My Chart Does message need to be routed? Yes-Action Needed R WORKER documented in this encounter Plan of Treatment Not on file documented as of this encounter Visit Diagnoses Not on filedocumented in this encounter Care Teams Secretary Board Of Commissioners Relationship Specialty Start Date End Date Cathie Bolanos PA [address] [place] [address] PCP - General Internal Medicine 11/10/18 Cathie Bolanos PA [address] [place] [address] Internal Medicine 11/10/18 documented as of this encounter
--- OUTSIDE RECORDS SUMMARY | 2025-05-05 16:05 | XMS_ITS | Encounter Summary ---
Author Organization [facility] Healthcare Address [address] [place] [address] Care Team Providers Care Electrician Outside Name Role Phone Cathie Bolanos Primary Care Provider [phone] Cathie Bolanos Unavailable [phone] Encounter Details Date Type Department Care Team (Late st Contact Info) Description 05/05/2025 Orders Only [facility] Family Medicine [address] [place] [address] Cathie Bolanos PA [address] [place] [address] Chest congestion; Acute cough Social History Tobacco Use Types Packs/Day Years [...] on file Legal Sex Female 6:08 PM AMPOULE EXAMINER Gender Identity Not on file Sexual Orientation Not on file 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 Not on file Not on file Not on file Not on file Not on file Not on file documented as of this encounter Plan of Treatment Not on file documented as of this encounter Procedures Procedure Name Priority Date/Time Associated Diagnosis Comments XR CHEST PA LATERAL 2 VIEWS Schedule Routine, Read Routine (OP Routine) 05/05/2025 10:56 AM AMPOULE EXAMINER Chest congestion Acute cough documented in this encounter Results * (ABNORMAL) XR Chest PA Lateral 2 Views (05/05/2025 10:56 AM AMPOULE EXAMINER) Anatomical Region Laterality Modality Body, Chest N/A Radiographic Anel ging Impressions 05/05/2025 10:56 AM AMPOULE EXAMINER Mild CHF Cathie FLOWERS IMG XR PROCEDURES Final Re sult documented in this encounter Visit Diagnoses Diagnosis Chest congestion Other symptoms involving respiratory system and chest Acute cough documented in this encounter Care Teams Electrician Outside Relationship Specialty Start Date End Date Cathie Bolanos PA [address] [place] [address] PCP - General Internal Medicine 11/10/18 Cathie Bolanos PA [address] [place] [address] Internal Medicine 11/10/18 documented as of this encounter
--- OUTSIDE RECORDS SUMMARY | 2025-05-05 16:05 | XMS_ITS | Encounter Summary ---
Author Organization [facility] Care Team Providers Care Software Sales Name Role Phone Cathie Bolanos Primary Care Provider [phone] Cathie Bolanos Primary Care Provider [phone] Cathie Bolanos Unavailable [phone] Encounter Details Date Type Department Care Team (Latest Contact Info) Description 08/08/2017 Orders Only [facility] Provider, MD King [address] [place] [address] Social History Tobacco Use Types Packs/Day Years Used Date Smoking Tobacco: Never Assessed Comments Unknown Sex and Gender Information Value Date Recorded Sex Assigned at Not on file Legal Sex Female 6:08 PM CENTER HOLE REAMER Gender Identity Not on file Sexual Orientation [...] on filedocumented in this encounter Care Teams Software Sales Relationship Specialty Start Date End Date Cathie Bolanos PA [address] [place] [address] PCP - General Internal Medicine 01/13/18 11/09/18 Cathie Bolanos PA [address] [place] [address] PCP - General Internal Medicine 11/10/18 Cathie Bolanos PA [address] [place] [address] Internal Medicine 11/10/18 documented as of this encounter
--- OUTSIDE RECORDS SUMMARY | 2025-05-05 16:05 | XMS_ITS | Encounter Summary ---
Author Organization [facility] Care Team Providers Care Flume Ride Operator Name Role Phone Cathie Bolanos Primary Care Provider [phone] Cathie Bolanos Primary Care Provider [phone] Cathie Bolanos Unavailable [phone] Encounter Details Date Type Department Care Team (Latest Contact Info) Description 07/31/2015 Orders Only [facility] Provider, MD King [address] [place] [address] Social History Tobacco Use Types Packs/Day Years Used Date Smoking Tobacco: Never Assessed Comments Unknown Sex and Gender Information Value Date Recorded Sex Assigned at Not on file 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 Historical Provider Final Res ult * SCAN - LABS (08/30/2015 12:00 AM CDT) Narrative 08/30/2015 12:00 AM CDT Ordered by an unspecified provider. Historical Provider Final Res ult * SCAN - LABS (08/24/2015 12:00 AM CDT) Narrative 08/24/2015 12:00 AM CDT Ordered by an unspecified provider. Historical Provider Final Res ult documented in this encounter Visit Diagnoses Not on filedocumented in this encounter Care Teams Flume Ride Operator Relationship Specialty Start Date End Date Cathie Bolanos PA [address] [place] [address] PCP - General Internal Medicine 01/13/18 11/09/18 Cathie Bolanos PA [address] [place] [address] PCP - General Internal Medicine 11/10/18 Cathie Bolanos PA [address] [place] [address] Internal Medicine 11/10/18 documented as of this encounter
--- OUTSIDE RECORDS SUMMARY | 2025-05-05 16:05 | XMS_ITS | Encounter Summary ---
Author Organization [facility] Healthcare Address [address] [place] [address] Care Team Providers Care Media Manager Name Role Phone Cathie Bolanos Primary Care Provider [phone] Cathie Bolanos Unavailable [phone] Encounter Details Date Type Department Care Team (Late st Contact Info) Description 05/05/2025 Results Follow-Up [facility] Family Medicine [address] [place] [address] Cathie Bolanos PA [address] [place] [address] XR Chest PA Lateral 2 Views Social History Tobacco Use Types Packs/Day Years [...] on file 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
--- OUTSIDE RECORDS SUMMARY | 2025-05-05 16:06 | XMS_ITS | Clinical Summary ---
Author Organization [facility] [place] [address] Address [address] [place] [address] Care Team Providers Care Tent Assembler Name Role Phone Cathie Bolanos Primary Care Provider [phone] Cathie Bolanos Unavailable [phone] Allergies Active Allergy Reactions Criticality Noted Date [...] E11.65 90 tablet 3 06/17/19 25 Active pen needle, diabetic 31 gauge x 16 needleIndication s:Uncontrolled type 2 diabetes mellitus with hyperglycemia (HCC) Use needle nightly to administer insulin. MAY SUBSTITUTE FOR INSURANCE PREFERRED AND MOST COST EFFECTIVE BRAND. E11.65 100 each 3 07/15/19 25 Active ofloxacin (FLOXIN) 0.3 % otic [...] 90 tablet 2 11/08/19 25 2025 Active Additional Information Patient not taking.Reported on 02/20/2025 blood-glucose sensor (Dexcom G7 Sensor) deviceIndication s:Uncontrolled type 2 diabetes mellitus with hyperglycemia (HCC),Insulin long-term use (HCC) Dexcom G7 sensor use for 10 days to monitor blood sugar. 9 each 3 11/21/19 Active Additional Information Patient not taking.Reported on 02/20/2025 blood-glucose,re ceiver,cont (Dexcom G7 Honing Machine Operator Production) miscIndications: Uncontrolled type 2 diabetes mellitus with hyperglycemia (HCC),Insulin long-term use (HCC) Dexcom G7 breeding manager use daily to monitor blood sugar. 1 each 11/21/19 Active Additional Information Patient not taking.Reported on 02/20/2025 allopurinoL (ZYLOPRIM) 100 mg tabletIndication s:Elevated blood uric acid level Take 1 tablet (100 mg total) by mouth daily 90 tablet 12/22/19 25 Active olmesartan-amLOD IPin-hcthiazid 40-5-12.5 mg tabletIndication s:Hypertension associated with diabetes (HCC) Take 1 tablet by mouth daily 90 tablet 1 12/22/19 25 Active dulaglutide (Trulicity) 1.5 mg/0.5 mL pen injectorIndicati ons:Uncontrolled type 2 diabetes mellitus with hyperglycemia (HCC) Inject 0.5 mL (1.5 mg total) under the skin once a week 6 mL 2 02/21/20 25 Active BASAGLAR 100 unit/mL (3 mL) pen for injection ADMINISTER 14 UNITS UNDER THE SKIN DAILY 15 mL 1 04/21/20 25 Active BASAGLAR 100 unit/mL (3 mL) pen for injection Inject 14 Units under the skin daily E11.65 15 mL 1 09/15/19 25 2024 Discontinued Active Problems Problem Noted Date Diagnosed Date Chronic gout of foot 02/21/2025 Obesity (BMI 30.0-34.9) 02/20/2025 Assessment & Plan (02/20/2025 5:04 PM CDT): Discussed the patient's BMI. The BMI is above average. BMI management plan is completed. BMI Follow-up includes: nutrition counseling, exercise counseling and education provided. Lower extremity edema 12/25/2024 Assessment & Plan [...] of continued A1c control to minimize the assisted effects of diabetes. Bring accuchecks to office [...] diabetes mellitus with diabetic microalbu minuria 11/20/2024 BMI 32.0-32.9,adult 11/07/2024 Assessment & Plan (02/20/2025 5:04 PM CDT): Discussed the patient's BMI. The BMI is above average. BMI management plan is completed. BMI Follow-up includes: nutrition counseling, exercise counseling and education provided. Assessment & Plan (12/16/2024 11:18 AM CDT): Discussed the patient's BMI. The BMI is above average. BMI management plan is completed. BMI Follow-up includes: nutrition counseling, exercise counseling and education provided. Assessment & Plan (11/07/2024 3:51 PM CDT): Discussed the patient's BMI. The BMI is above average. BMI management plan is completed. BMI Follow-up includes: nutrition counseling, exercise counseling and education provided. Abnormal mammogram 12/17/2022 Assessment & Plan (12/17/2022 11:23 PM CDT): Awaiting diagnostic mamm/US scheduled in the next few weeks. Type 2 diabetes mellitus wit h hyperglycemia, with long-term current use of insulin 12/17/2022 Assessment & Plan (09/24/2024 9:55 PM CDT): Stressed importance of continued A1c control to minimize the assisted effects of diabetes. Bring accuchecks to office [...] immediately Assessment & Plan (06/26/2024 8:41 PM BINDER STRIPPER MACHINE): This is a significant, separately identifiable problem [...] Offered referral to dietitian as well as store standards associate and she declines these also. Assessment & Plan (03/27/2023 1:02 PM CDT): Stressed importance of continued A1c control to minimize the intermodal dispatcher effects of diabetes. Bring accuchecks to office [...] (12/17/2022 11:26 PM CDT): Started Insulin today. Uncontrolled type 2 diabetes mellitus with hyperglycemia ([facility]) 10/21/2020 Assessment & Plan (08/12/2024 8:22 PM CDT): Stressed importance of continued A1c control to minimize the assisted effects of diabetes. Bring accuchecks to office [...] prior. Assessment & Plan (07/23/2024 8:02 PM BINDER STRIPPER MACHINE): Stressed importance of continued A1c control to minimize the assisted effects of diabetes. Bring accuchecks to office [...] HS. Assessment & Plan (07/10/2024 7:17 PM BINDER STRIPPER MACHINE): Stressed importance of continued A1c control to minimize the assisted effects of diabetes. Bring accuchecks to office [...] the continuous glucose monitor as well as finisher cold rolling and Endocrinology referral and she has declined all of those. She wants to work hard on doing medications as instructed to see where she ends up. Follow-up in 2 more weeks to continue to reinforce compliance. She is in agreement with the plan Assessment & Plan (06/26/2024 8:41 PM BINDER STRIPPER MACHINE): This is a significant, separately identifiable problem [...] Offered referral to dietitian as well as store standards associate and she declines these also. Assessment & Plan (05/14/2023 3:41 PM BINDER STRIPPER MACHINE): This is a chronic condition which is [...] make a change willing to see the manager wound Assessment & Plan (12/17/2022 11:21 PM CDT): This is a significant, separately identifiable problem that was evaluated and managed on the same day as the wellness exam Stressed importance of continued A1c control to minimize the intermodal dispatcher effects of diabetes. This includes but is [...] of continued A1c control to minimize the intermodal dispatcher effects of diabetes. Bring accuchecks to office when instructed to do so. Check A1c about every 3-6 months. Take medication as prescribed. Get annual eye exam. Encouraged ELINA/Statin if able to tolerate. Encouraged weight control and encouraged diabetic diet and exercise. Assessment & Plan (11/11/2020 9:35 PM CDT): Stressed importance of continued A1c control to minimize the assisted effects of diabetes. Bring accuchecks to office [...] of continued A1c control to minimize the intermodal dispatcher effects of diabetes. Bring accuchecks to office when instructed to do so. Check A1c about every 3-6 months. Take medication as prescribed. Get annual eye exam. Encouraged ELINA/Statin if able to tolerate. Encouraged weight control and encouraged diabetic diet and exercise. See neuropathy. Vitamin D deficiency 01/16/2019 Assessment & Plan (12/17/2022 5:29 PM CDT): Patient not currently supplementing vitamin D but was encouraged to do so. Assessment & Plan (10/21/2020 8:39 PM CDT): supplement Assessment & Plan (05/16/2019 3:54 PM BINDER STRIPPER MACHINE): supplement Assessment & Plan (02/13/2019 4:05 PM CDT): Supplement. Hypertension associated with diabetes 12/31/2018 Assessment & Plan (08/12/2024 8:21 PM CDT): Bp is stable/in acceptable range for any co-morbidities. Encouraged to limit sodium intake and exercise for weight control. Continue Tribenzor /10/10,5 Assessment & Plan (06/26/2024 8:38 PM BINDER STRIPPER MACHINE): Bp is stable/in acceptable range for any co-morbidities. Encouraged to limit sodium intake and exercise for weight control. Continue Tribenzor .5 Assessment & Plan (05/14/2023 3:41 PM BINDER STRIPPER MACHINE): This is a chronic condition which is at goal of less than 140/90 Personally reviewed labs. Continue olmesartan, amlodipine, hydrochlorothiazide Encouraged to monitor weight and B/P at home Encouraged to take medications as prescribed. Assessment & Plan (03/27/2023 12:57 PM CDT): Bp is stable/in acceptable range for any co-morbidities. Encouraged to limit sodium intake and exercise for weight control. [facility] Assessment & Plan (12/17/2022 11:16 PM [...] week. Assessment & Plan (07/17/2022 4:47 PM BINDER STRIPPER MACHINE): Bp is stable/in acceptable range for any co-morbidities. Encouraged to limit sodium intake and exercise for weight control. Continue [facility] Assessment & Plan (06/28/2022 7:47 PM BINDER STRIPPER MACHINE): Bp is stable/in acceptable range for any co-morbidities. Encouraged to limit sodium intake and exercise for weight control. Continue [facility] .5 Assessment & Plan (11/17/2021 10:51 PM CDT): Bp is stable/in acceptable range for any co-morbidities. Encouraged to limit sodium intake and exercise for weight control. Continue [facility] .5 Assessment & Plan (07/05/2021 11:19 AM BINDER STRIPPER MACHINE): Bp is stable/in acceptable range for any co-morbidities. Encouraged to limit sodium intake and exercise for weight control. Continue [facility] Assessment & Plan (01/13/2021 10:12 PM CDT): Bp is stable/in acceptable range for any co-morbidities. Encouraged to limit sodium intake and exercise for weight control. Continue [facility] Assessment & Plan (11/11/2020 9:36 PM CDT): Bp is stable/in acceptable range for any co-morbidities. Encouraged to limit sodium intake and exercise for weight control. Continue [facility] Assessment & Plan (10/21/2020 8:39 PM CDT): Bp is stable/in acceptable range for any co-morbidities. Encouraged to limit sodium intake and exercise for weight control. Continue Tribenzor. bp well controlled Assessment & Plan (05/20/2020 8:50 PM BINDER STRIPPER MACHINE): Bp is stable/in acceptable range for any co-morbidities. Encouraged to limit sodium intake and exercise for weight control. Assessment & Plan (09/19/2019 9:58 AM CDT): Bp is stable/in acceptable range for any co-morbidities. Encouraged to limit sodium intake and exercise for weight control. stable Assessment & Plan (05/16/2019 3:53 PM BINDER STRIPPER MACHINE): Bp is stable/in acceptable range for any [...] 12/31/2018 Assessment & Plan (06/26/2024 8:40 PM BINDER STRIPPER MACHINE): Continue Lexapro 10 as her depression symptoms [...] daily. Assessment & Plan (07/17/2022 4:47 PM BINDER STRIPPER MACHINE): Stable with Lexapro 5 mg. Assessment & Plan (06/28/2022 7:48 PM BINDER STRIPPER MACHINE): Increased stressors at home. Restart Lexapro 10 mg. Assessment & Plan (11/17/2021 10:51 PM CDT): Patient still feels like her symptoms are controlled without medication. Will continue to monitor. Assessment & Plan (10/21/2020 8:40 PM CDT): Currently stable without medication. Continue to monitor closely Assessment & Plan (05/16/2019 3:54 PM BINDER STRIPPER MACHINE): Stable with lexapro Assessment & Plan (02/13/2019 4:06 PM CDT): Stable with the Lexapro 20 mg Diabetic neuropathy associat ed with type 2 diabetes mellitus 12/31/2018 Assessment & Plan (05/14/2023 3:42 PM BINDER STRIPPER MACHINE): States neuropathy well controlled with current dose of gabapentin Assessment & Plan (03/27/2023 1:00 PM CDT): Stressed importance of continued A1c control to minimize the intermodal dispatcher effects of diabetes. Bring accuchecks to office [...] Neurontin. Assessment & Plan (07/05/2021 11:19 AM BINDER STRIPPER MACHINE): Continue to manage diabetes tightly. Continue with the Neurontin. Assessment & Plan (01/13/2021 10:13 PM CDT): Stressed importance of continued A1c control to minimize the intermodal dispatcher effects of diabetes. Bring accuchecks to office [...] of continued A1c control to minimize the assisted effects of diabetes. Bring accuchecks to office when instructed to do so. Check A1c about every 3-6 months. Take medication as prescribed. Get annual eye exam. Encouraged ELINA/Statin if able to tolerate. Encouraged weight control and encouraged diabetic diet and exercise. Continue gabapentin Assessment & Plan (05/20/2020 8:49 PM BINDER STRIPPER MACHINE): Stressed importance of continued A1c control to minimize the intermodal dispatcher effects of diabetes. Bring accuchecks to office [...] of continued A1c control to minimize the assisted effects of diabetes. Bring accuchecks to office [...] of continued A1c control to minimize the assisted effects of diabetes. Bring accuchecks to office [...] of continued A1c control to minimize the intermodal dispatcher effects of diabetes. Bring accuchecks to office [...] obtain Assessment & Plan (05/16/2019 3:53 PM BINDER STRIPPER MACHINE): Stressed importance of continued A1c control to minimize the intermodal dispatcher effects of diabetes. Bring accuchecks to office [...] of continued A1c control to minimize the intermodal dispatcher effects of diabetes. Bring accuchecks to office [...] 12/31/2018 Assessment & Plan (06/26/2024 8:38 PM BINDER STRIPPER MACHINE): Continue PPI p.r.n. Assessment & Plan (03/27/2023 1:00 PM CDT): Continue PPI p.r.n. Assessment & Plan (10/21/2020 8:40 PM CDT): Stable without medication Assessment & Plan (05/16/2019 3:53 PM BINDER STRIPPER MACHINE): Currently stable without medication Assessment & Plan (02/13/2019 4:05 PM CDT): Stable without medication currently Fibromyalgia 12/31/2018 Assessment & Plan (06/28/2022 7:48 PM BINDER STRIPPER MACHINE): Continue gabapentin for pain and fibromyalgia symptoms Assessment & Plan (01/13/2021 10:14 PM CDT): Continue cymbalta Assessment & Plan (11/11/2020 9:36 PM CDT): Continue neurontin Assessment & Plan (05/16/2019 3:53 PM BINDER STRIPPER MACHINE): Stable with gabapentin Assessment & Plan (02/13/2019 [...] d isorder, in partial remission 09/24/2024 11/20/2024 Obesity (BMI 30.0-34.9) 08/12/202401/31 Assessment & Plan (12/16/2024 11:17 AM CDT): [...] provided. Current moderate episode of major depressive disorder 08/12/2024 11/20/2024 Assessment & Plan (09/24/2024 9:55 PM CDT): Stable with Lexapro 10 Assessment & Plan (08/12/2024 8:25 PM CDT): Depression symptoms have stabilized with the Lexapro and better control of her sugars. BMI 30.0-30.9,adult 07/01/2024 07/23/19 25 Assessment & Plan (07/01/2024 11:19 AM BINDER STRIPPER MACHINE): BMI Follow-up includes: Discussed diet and exercising counseling. BMI 31.0-31.9,adult 07/01/2024 02/21/20 25 Assessment & Plan (12/25/2024 8:07 PM CDT): [...] provided. Assessment & Plan (07/15/2024 11:17 AM BINDER STRIPPER MACHINE): Discussed the patient's BMI. The BMI is above average. BMI management plan is completed. BMI Follow-up includes: nutrition counseling, exercise counseling and education provided. Assessment & Plan (07/01/2024 11:19 AM BINDER STRIPPER MACHINE): Weight/BMI is in healthy range. Continue healthy lifestyle to maintain. BMI 29.0-29.9,adult 06/17/2024 07/01/19 Assessment & Plan (06/17/2024 10:23 AM BINDER STRIPPER MACHINE): Weight/BMI is in healthy range. Continue healthy lifestyle to maintain. Class 1 obesity due to exces s calories with serious comorbidity and body mass index (BMI) of 30.0 to 30.9 in adult 03/27/2023 06/26/2024 Assessment & Plan (05/14/2023 3:43 PM BINDER STRIPPER MACHINE): This is a chronic condition which continues Weight decreased by 3 lb since 03/23 Encouraged healthy eating and exercise Assessment & Plan (05/14/2023 3:42 PM BINDER STRIPPER MACHINE): >>ASSESSMENT AND PLAN FOR OBESITY (BMI 30-39.9) [...] with weight bearing exercise and good nutrition Annual physical exam 12/17/2022 025 Assessment & Plan (06/26/2024 8:40 PM BINDER STRIPPER MACHINE): Encouraged healthy lifestyle, good nutrition and exercise. Encouraged Calcium and Vitamin D and weight bearing exercise for bone health. Reviewed immunizations Reviewed age appropirate screenings. Assessment & Plan (12/17/2022 11:14 PM CDT): Encouraged healthy lifestyle, good nutrition and exercise. Encouraged Calcium and Vitamin D and weight bearing exercise for bone health. Reviewed immunizations Reviewed age appropirate screenings. BMI 30.0-30.9,adult 07/17/2022 12/18/19 23 Assessment & Plan (07/17/2022 4:47 PM BINDER STRIPPER MACHINE): Discussed the patient's BMI. The BMI is above average. BMI management plan is completed. BMI Follow-up includes: nutrition counseling, exercise counseling and education provided. Diabetes mellitus type II, controlled 07/05/2021 07/17/2022 Assessment & Plan (06/28/2022 7:49 PM BINDER STRIPPER MACHINE): Stressed importance of continued A1c control to minimize the intermodal dispatcher effects of diabetes. Bring accuchecks to office [...] of continued A1c control to minimize the assisted effects of diabetes. Bring accuchecks to office [...] week Assessment & Plan (07/05/2021 11:21 AM BINDER STRIPPER MACHINE): Stressed importance of continued A1c control to minimize the intermodal dispatcher effects of diabetes. Bring accuchecks to office [...] 06/13/20212022 Assessment & Plan (07/17/2022 4:06 PM BINDER STRIPPER MACHINE): Discussed the patient's BMI. The BMI is above average. BMI management plan is completed. BMI Follow-up includes: nutrition counseling, exercise counseling and education provided. Assessment & Plan (06/28/2022 7:48 PM BINDER STRIPPER MACHINE): Discussed the patient's BMI. The BMI is [...] provided. Assessment & Plan (06/13/2021 3:38 PM BINDER STRIPPER MACHINE): Obesity is unchanged. Discussed the patient's BMI. The BMI is above average. BMI management plan is completed. BMI Follow-up includes: nutrition counseling, exercise counseling and education provided. BMI 31.0-31.9,adult 06/13/2021 07/17/19 23 Assessment & Plan (06/28/2022 7:48 PM BINDER STRIPPER MACHINE): Discussed the patient's BMI. The BMI is [...] provided. Assessment & Plan (06/13/2021 3:38 PM BINDER STRIPPER MACHINE): Obesity is unchanged. Discussed the patient's BMI. The BMI is above average. BMI management plan is completed. BMI Follow-up includes: nutrition counseling, exercise counseling and education provided. Colon cancer screening 01/13/202106/28 Assessment & Plan (01/13/2021 10:15 PM CDT): Refer to Dr. Alvarez to do colonoscopy after age 50yo. BMI 31.0-31.9,adult 01/10/2021 08/13/19 25 Assessment & Plan (07/15/2024 11:17 AM BINDER STRIPPER MACHINE): Discussed the patient's BMI. The BMI is above average. BMI management plan is completed. BMI Follow-up includes: nutrition counseling, exercise counseling and education provided. Assessment & Plan (01/10/2021 3:05 PM CDT): Obesity is unchanged. Discussed the patient's BMI. The BMI is above average. BMI management plan is completed. BMI Follow-up includes: nutrition counseling, exercise counseling and education provided. Fatigue 11/11/2020 02/21/2025 Assessment & Plan (08/12/2024 8:22 PM CDT): Probably multifactorial. Check labs and followup to re-evaluate Assessment & Plan (11/17/2021 10:52 PM CDT): Probably multifactorial. Check labs and followup to re-evaluate Assessment & Plan (07/05/2021 11:20 AM BINDER STRIPPER MACHINE): Probably multifactorial. Check labs and followup to re-evaluate Assessment & Plan (01/13/2021 10:14 PM CDT): Probably multifactorial. Check labs and followup to re-evaluate Assessment & Plan (11/11/2020 9:37 PM CDT): Probably multifactorial. Check labs and followup to re-evaluate Obesity (BMI 30-39.9) 11/01/20202021 Assessment & Plan [...] 12/17/2022 Assessment & Plan (06/28/2022 7:48 PM BINDER STRIPPER MACHINE): Mammogram order provided Assessment & Plan (01/13/2021 [...] nutrition counseling, exercise counseling and education provided. Acute cystitis without hematuria 09/19/2019 02/21/2025 Assessment & Plan (09/19/2019 9:59 AM CDT): Resolved. Continue to monitor as frequency is probably secondary to poor DM control. Urinary tract infection symptoms 09/08/2019 09/19/2019 Assessment & Plan (09/08/2019 9:20 AM CDT): Pt presents with dysuria. Urine dip completed. Send urine culture. Antibiotic to pharmacy. Reviewed bladder care. May use barrier cream external prn BMI 30.0-30.9,adult 05/11/2019 09/08/19 20 Assessment & Plan (05/11/2019 3:51 PM BINDER STRIPPER MACHINE): BMI Follow-up includes: Discussed diet and exercising counseling. Obesity (BMI 30-39.9) 05/11/20192019 Assessment & Plan (05/16/2019 3:53 PM BINDER STRIPPER MACHINE): BMI Follow-up includes: Discussed diet and exercising [...] appropirate screenings. Needs Tdap Long-term insulin use ([facility]) 02/07/2019 07/17/2022 Assessment & Plan (11/17/2021 [...] closely Assessment & Plan (05/16/2019 3:54 PM BINDER STRIPPER MACHINE): Continue with current regimen Assessment & Plan (02/13/2019 4:05 PM CDT): Still on days ago are Other fatigue 02/07/2019 02/21/2025 Assessment & Plan (12/17/2022 5:26 PM CDT): Fatigue is likely multifactorial. We will evaluate labs for any underlying abnormalities that the fatigue may be attributed to. Assessment & Plan (05/20/2020 8:50 PM BINDER STRIPPER MACHINE): Probably multifactorial. Check labs and followup to re-evaluate Assessment & Plan (05/16/2019 3:54 PM BINDER STRIPPER MACHINE): Probably multifactorial. Check labs and followup to re-evaluate Assessment & Plan (02/13/2019 4:06 PM CDT): Probably multifactorial. Check labs and followup to re-evaluate Breast cancer screening 02/07/201905/01 Assessment & Plan (02/13/2019 4:05 PM CDT): Mammogram order provided Need for Tdap vaccination 02/07/2019 Assessment & Plan (02/13/2019 4:06 PM CDT): Updated in office today Fibromyalgia 02/25/2018 06/28/2022 Assessment & Plan (11/17/2021 10:51 PM CDT): Continue to remain active. Control chronic conditions and exercise. Encounters Date Type Department Care Team Description 05/05/2025 Results Follow-Up [address] [place] [address] Cathie Bolanos PA XR Chest PA Lateral 2 Views 05/05/[address] [facility] [address] [place] [address] [address] [place] [address] Cathie Bolanos PA Chest congestion; Acute cough 04/25/[address] [facility] [address] [place] [phone] Cathie Bolanos PA Chest congestion (Primary Dx); Acute cough 04/25/[address] [facility] [address] [place] [phone] Cathie Bolanos PA Uncontrolled type 2 diabetes mellitus with hyperglycemia (CMS/HCC) (HCC) (Primary Dx) 04/25/2025 Telephone [place] [id number] [place] [phone] Cathie Bolanos PA Medical Question/Miscellaneous 02/20/2025 5:00 PM CDT Office Visit [place] [id number] [place] [address] Cathie Bolanos PA Type 2 diabetes mellitus with hyperglycemia, with long-term current use of insulin (HCC) (Primary Dx); Uncontrolled type 2 diabetes mellitus with hyperglycemia (CMS/HCC) (HCC); Type 2 diabetes mellitus with hyperlipidemia (HCC); Insulin long-term use (HCC); Hypertension associated with diabetes (HCC); Diabetic neuropathy associated with type 2 diabetes mellitus (HCC); Moderate episode of recurrent major depressive disorder (HCC); Chronic gout of right foot, unspecified cause; Obesity (BMI 30.0-34.9); BMI 32.0-32.9,adult from Last 3 Months Immunizations Immunization Administration Dates Next Due Influenza, Unspecified 02/20/2025(Deferr ed: Patient Refused),06/01/2024(Deferred: Patient Refused),06/01/2024(Deferred: Patient Refused),06/01/2022(Deferred: Patient Refused),07/02/2021(Deferred: Patient Refused),06/01/2021(Deferred: Patient Refused),06/01/2020(Deferred: Patient Refused),05/01/2018(Deferred: Patient Refused) Pfizer SARS-CoV-2 Monovalent Vaccination (12+ Yrs) PURPLE 11/30/2020,11/09/2020 Tdap 02/07/2019 Surgical History Surgery Date Site/Laterality Comments SECTION TUBAL LIGATION SECTION x 3 CHOLECYSTECTOMY HERNIA REPAIR COLON SURGERY Medical History Medical History Date Comments Diabetes mellitus Hypertension Family History Medical History Relation Name Comments Hypertension Maternal Grandmother Stroke Maternal Grandmother Aneurysm Mother Hypertension Mother Stroke Mother Heart disease Sister Relation Name Status Comments Father Maternal Grandmother Mother Sister Social History Tobacco Use Types Packs/Day Years Used Date Smoking Tobacco: Never Smokeless Tobacco: Never Tobacco Cessation:Counseling Given: Not Answered Alcohol Use Standard Drinks/Week Comments Not Currently [...] on file Legal Sex Female 6:08 PM BINDER STRIPPER MACHINE Gender Identity Not on file Sexual Orientation Not on file 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 file Not on file Not on file Not on file Not on file Not on file Not on file Last Filed Vital Signs Vital Sign Reading Time Taken Comments Blood Pressure 124/88 02/20/2025 5:49 PM CDT Pulse 91 02/20/2025 5:00 PM CDT Temperature 36.7 C (98 F) 02/20/2025 5:00 PM CDT Respiratory Rate 16 06/19/2022 3:18 PM BINDER STRIPPER MACHINE Oxygen Saturation 98% 02/20/2025 5:00 PM CDT Inhaled Oxygen Concentration - - Weight 82.4 kg (181 lb 9.6 oz) 02/20/2025 5:00 P M CDT Height 160 cm (5' 3) 12/16/2024 11:15 AM CDT Body Mass Index 32.17 12/16/2024 11:15 AM CDT Plan of Treatment Health Maintenance Due Date Last Done Comments Cervical Cancer Screening 1971 Hepatitis B Screening 1989 Pneumococcal vaccine <65 (1 of 2 - PCV) 1990 Zoster Vaccine (1 of 2) 2021 Foot Exam 05/14/2024 05/14/2023, 02/07/2019 Covid-19 Vaccine (3 - 2024-2 6 season) 2025 11/30/2020, 11/09/2020 Influenza Vaccine (#1) 2025 Albumin Creatinine Ratio, Urine 06/16/2025 06/16/2024, 06/19/2023, 06/17/2022 Regular Well Visit/Exam 18-64 06/17/2025, 12/17/2022, 11/14/2021, Additional history exists Breast Cancer Screening-Mammogram 07/29/2025 07/29/2024, 11/22/2022, 01/19/2021, Additional history exists Hemoglobin A1C 08/20/2025 02/20/2025, 06/0 11/2024, 06/16/2024, Additional history exists Dilated Eye Exam 09/09/2025 09/09/2024, , 02/28/2021, Additional history exists Lipid Panel 11/05/2025 11/05/2024, 06/01, 06/19/2023, Additional history exists eGFR 12/16/2025 12/16/2024, 06/01, 06/19/2023, Additional history exists Depression Screening 02/20/2026 02/20/2025, 12/16/2024, 11/07/2024, Additional history exists DTaP/Tdap/Td Vaccine (2 - Td or Tdap) 02/07/2029 02/07/2019 Colon Cancer Screening-Colonoscopy 03/11/20312020 Hepatitis C Screening Completed 04/22/2017 Procedures Procedure Name Priority Date/Time Associated Diagnosis Comments XR CHEST PA LATERAL 2 VIEWS Schedule Routine, Read Routine (OP Routine) 05/05/2025 10:56 AM BINDER STRIPPER MACHINE Chest congestion Acute cough POCT HEMOGLOBIN A1C Routine 02/20/2025 5 :27 PM CDT Uncontrolled type 2 diabetes mellitus with hyperglycemia (CMS/HCC) (HCC) COMPREHENSIVE METABOLIC PANEL Routine 12/16/2024 3:47 PM CDT Lower extremity edema LIPID PANEL Routine 11/05/2024 Hypertension associated with diabetes (HCC) DIABETES EYE EXAM Routine 09/09/2024 12:26 PM CDT MAMMOGRAPHY Routine 07/29/2024 ALBUMIN CREATININE RATIO, URINE Routine 06/16/2024 Type 2 diabetes mellitus without complication, with long-term current use of insulin (HCC) Annual physical exam COLONOSCOPY Routine 03/11/2021 HEPATITIS PANEL, ACUTE Routine 04/22/2017 9:57 AM BINDER STRIPPER MACHINE from Last 3 Months or Most Recently Relevant to Health Maintenance Results * (ABNORMAL) XR Chest PA Lateral 2 Views (05/05/2025 10:56 AM BINDER STRIPPER MACHINE) Anatomical Region Laterality Modality Body, Chest N/A Radiographic Anel ging Impressions 05/05/2025 10:56 AM BINDER STRIPPER MACHINE Mild CHF us Cathie FLOWERS IMG XR PROCEDURES Final Re sult * (ABNORMAL) POCT hemoglobin A1c (02/20/2025 5:27 PM CDT) Pathologist [facility] [place] Hemoglobin A1C, POC 11.8(A) 4.0 - 5.6 % Blood spot 02/20/2025 5:27 PM CDT us Cathie FLOWERS POINT OF CARE TEST ORDERAB LES Final Result * (ABNORMAL) Comprehensive metabolic panel (12/16/2024 3:47 [...] - 36 Units/L EXTERNAL LAB SCRIBED eGFR >60 60 - 60 EXTERNAL LAB SCRIBED eGFR 0 0 - 0 EXTERNAL LAB Blood 12/16/2024 3:47 PM CDT Cathie FLOWERS LAB BLOOD ORDERABLES Final Result [...] 202 NONE EXTERNAL LAB Comment:0 Blood 11/05/2024 us Cathie FLOWERS LAB BLOOD ORDERABLES Final Result Performing Organization Address City/[facility]/ZIP Co de Phone Number EXTERNAL LAB * (ABNORMAL) DIABETES EYE EXAM (09/09/2024 12:26 PM CDT) Impressions Genoveva Mcgarry MA - 09/09/2024 12:26 PM CDT retinopathy Historical Provider HEALTH MAINTENANCE Edited Result - Final * MAMMOGRAPHY (07/29/2024) Pathologist [facility] [place] Mammography Normal 07/29/2024 Historical Provider [facility] MAINTENANCE Final Result * (ABNORMAL) Albumin Creatinine Ratio, Urine (06/16/2024) Pathologist [facility] [place] SCRIBED Creatinine, Urine 293.8(A) 0 - 0 EXTERNAL LAB SCRIBED Micro ACR, Urine >1,140.0 0 - 16.7 EXTERNAL LAB SCRIBED Microalb/Creat Ratio >388 0 - 30 EXTERNAL LAB Urine 06/16/2024 Result [facility] Cathie FLOWERS LAB URINE ORDERABLES Final Result Performing Organization Address [facility] Co de Phone Number EXTERNAL LAB * COLONOSCOPY (03/11/2021) Pathologist [facility] [place] Scribed Colonoscopy Abnormal Narrative Cathie Bolanos PA - 03/11/2021 Dr. Alvarez --->hyperplastic polyp Repeat 10 years Historical Provider [facility] MAINTENANCE Final Result * Hepatitis panel, acute (04/22/2017 9:57 AM BINDER STRIPPER MACHINE) Pathologist [facility] [place] Hep A IgM TNP [facility] HISTORICAL RESULTS Comment: * Test not performed. * * No specimen received. * HepBsAg TNP [facility] HISTORICAL RESULTS Comment: * Test not performed. * * No specimen received. * Hep B core IgM TNP [facility] HISTORICAL RESULTS Comment: * Test not performed. * * No specimen received. * [facility]: * Test not performed. * * No specimen received. * 04/22/2017 9:57 AM BINDER STRIPPER MACHINE 04/27/2017 3:20 PM BINDER STRIPPER MACHINE Narrative [facility] HISTORICAL RESULTS - 04/27/2017 3:01 PM BINDER STRIPPER MACHINE 0 0 PERFORMING LAB: [place], [facility] [address] [place] [id number] Saul Urrutia D.O., MPH us Historical Provider LAB MICROBIOLOGY - GENERA L ORDERABLES Final Result [facility] HISTORICAL RESULTS from Last 3 Months or Most Recently Relevant to Health Maintenance Insurance [facility] Care Teams Tent Assembler Relationship Specialty Start Date End Date Cathie Bolanos PA [address] [place], [place] [phone] PCP - General Internal Medicine 11/10/18 Cathie Bolanos PA [address] [place], [place] [phone] Internal Medicine 11/10/18
[2025-05-05 16:07] VITALS: RESP 18
[2025-05-05 16:08] VITALS: BP 148/94; PULSE 90; RESP 18; O2SAT 100
[2025-05-05 16:11] LABS: Hematocrit 37.5 % (37.0-47.0); Hemoglobin 12.7 g/dL (12.0-15.0); Immature Granulocyte Percent A 0.1 % (0-0.5); Lymphocytes Absolute Auto 2.34 K/mm3 (0.9-3.2); Mean Corpuscular HGB Conc 33.9 g/dl (32-36); Mean Corpuscular Hemoglobin 31.0 pg (26-34); Mean Corpuscular Volume 91.5 fl (80-100); Nucleated Red Blood Cells Absolute Auto 0.000 K/mm3 (0.0-0.012); Nucleated Red Blood Cells Perc 0.0 % (0.0-0.2); Platelet Count Result 252 k/mm3 (150-375); Red Blood Count 4.10 M/mm3 (4.2-5.4); White Blood Count 6.7 K/mm3 (4.5-10.0)
[2025-05-05 16:40] LABS: Alanine Aminotransferase 21 U/L (6-35); Albumin Level 3.8 g/dL (3.5-5.1); Alkaline Phosphatase 102 U/L (38-126); Anion Gap 4 mmol/L (4-12); Aspartate Amino Transferase 20 U/L (14-36); Bilirubin,Total 0.4 mg/dL (0.2-1.3); Blood Urea Nitrogen 34 mg/dL (7-17); Calcium 9.3 mg/dL (8.4-10.2); Carbon Dioxide 25 mmol/L (22-30); Chloride 104 mmol/L (98-107); Estimated CRCL calculation 53 ml/min; Estimated Glomerular Filt Rate 55; Glucose 280 mg/dL (65-110); Potassium 4.1 mmol/L (3.4-5.0); Sodium 133 mmol/L (137-145); Total Protein 7.1 g/dL (6.3-8.2)
[2025-05-05 16:47] LABS: NT Pro B Type Natriuretic Pept 36 pg/mL (19.9-100); Troponin I < 0.012 ng/mL (0.000-0.034)
[2025-05-05 17:04] VITALS: BP 155/97; PULSE 86; RESP 14; O2SAT 100
[2025-05-05 17:26] VITALS: BP 155/97; PULSE 88; RESP 18; O2SAT 100
== END 2025-05-05 17:29 | disposition home or self-care (01) ==
PROVIDERS: Emergency Provider Emergency Medicine; PCP Physician Assistant
DX: J40 Bronchitis, not specified as acute or chronic (principal); E11.9 Type 2 diabetes mellitus without complications; I10 Essential (primary) hypertension; Z79.4 Long term (current) use of insulin; Z79.85 Long-term (current) use of injectable non-insulin antidiabetic drugs; F12.90 Cannabis use, unspecified, uncomplicated
CPT/HCPCS: 36415; 71045; 80053; 83880; 84484; 85025; 93005; 99284